=== PATIENT | female | born 1940 | race Caucasian/White ===

== ENCOUNTER 2022-11-05 20:46 | Emergency (ER) | payer MEDICARE, SELFPAY ==
--- NOTE | ~2022-11-05 | CT_ITS ---
EXAMINATION: CT HEAD WITHOUT CONTRAST CLINICAL INFORMATION: Altered mental status. COMPARISON: None available. TECHNIQUE: Contiguous axial imaging was performed from the skull base to vertex without intravenous administration of contrast. This CT examination was performed using dose optimization techniques as appropriate, variously including the following: *Automated exposure control. *Adjustment of mA and/or kV according to patient size (this includes techniques or standardized protocols for targeted exams where dose is matched to indication/reason for exam; i.e. extremities or head). *Use of iterative reconstruction technique. DLP: 581 mGy-cm FINDINGS: Changes of high left parietal craniotomy with overlying cutaneous gustabo. Small extradural hyperattenuating collection subjacent to the craniotomy flap, measuring up to 0.4 cm in depth. This is superimposed on a moderate left hemispheric subdural collection with mixed attenuation, measuring up to 1.2 cm in depth. No additional acute intracranial hemorrhagic products. There is no evidence of acute edematous territorial infarction. [place]-white matter differentiation is preserved. Scattered and partially confluent hypoattenuation in the periventricular and deep white matter are consistent with moderate microangiopathy. Proportional prominence of the ventricles and sulcal spaces without evidence of obstructive hydrocephalus. Mild effacement of the left cerebral sulci. There is mild 0.2 cm rightward midline shift. No transtentorial herniation. Calcific atherosclerotic disease of the intracranial internal carotid arteries. No hyperdense vessel sign. No additional acute osseous abnormalities. Mild mucosal thickening of the paranasal sinuses. The mastoid air cells and middle ear cavities are clear. Bilateral lens extractions. CT/CT head/brain wo IV con IMPRESSION: 1. Changes of high left parietal craniotomy. Small extradural hyperattenuating collection subjacent to the craniotomy flap. Moderate left hemispheric subdural collection with mixed attenuation. Recommend correlation with reason for recent craniotomy. 2. No evidence of acute edematous territorial infarction. Moderate underlying microangiopathy and generalized cerebral volume loss.
[2022-11-05 20:54] VITALS: BP 127/58; PULSE 79; RESP 21; TEMP 36.7; O2SAT 98; BMI 19.8
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
--- NOTE | 2022-11-05 21:10 | PC.NURSE ---
pt [place] [facility] [place] spent 11 days at [facility] for rehab last 2 days has been feeling unwell and intermittent headaches concern for new bleed expressed
--- NOTE | 2022-11-05 21:15 | PC.NURSE ---
pt's son and daughter at bedside
[2022-11-05] MEDS: 0.9 % Sodium Chloride 1,000 ML 999 ML IV (21:21)
--- NOTE | 2022-11-05 21:55 | ECG_ITS ---
Test Reason : DIZZINESS Blood Pressure : / mmHG Vent. Rate : 079 BPM Atrial Rate : 000 BPM P-R Int : 000 ms QRS Dur : 072 ms QT Int : 412 ms P-R-T Axes : 000 009 000 degrees QTc Int : 472 ms Poor data quality Atrial fibrillation Low voltage QRS Nonspecific ST and T wave abnormality Abnormal ECG No previous ECGs available Referred By: Kana Braxton Electronically Signed By:Emery Clay
[2022-11-05 22:06] LABS: Alanine Aminotransferase 71 U/L (0-31); Albumin Level 3.8 g/dL (3.5-5.0); Alkaline Phosphatase 132 U/L (39-117); Anion Gap 14 (12-20); Aspartate Amino Transferase 50 U/L (5-31); Blood Urea Nitrogen 17 mg/dL (9-16); Calcium 9.4 mg/dL (8.4-10.2); Carbon Dioxide 23 mmol/L (22-29); Chloride 103 mmol/L (96-108); Creatinine Clr Calc Pharmacy 60.7; Estimated Glomerular Filt Rate > 60; Glucose Random 98 mg/dL (60-115); Potassium 3.1 mmol/L (3.3-5.1); Sodium 137 mmol/L (135-145)
[2022-11-05 22:09] LABS: MANUAL DIFF FLAG NO
[2022-11-05 22:12] LABS: Basophils Absolute Auto 0.1 X10*3/uL (0.0-0.2); Basophils Percent Auto 0.4 % (0-2); Eosinophils Absolute Auto 0.1 X10*3/uL (0.0-0.4); Eosinophils Percent Auto 0.8 % (0-4); Hematocrit 38.3 % (37.0-47.0); Hemoglobin 13.3 g/dl (12.0-16.0); Imm Gran Abs Auto 0.04 X10*3/uL (0.00-0.03); Imm Gran Pct Auto 0.3 % (0.0-0.4); Lymphocytes Absolute Auto 3.4 X10*3/uL (1.2-4.9); Lymphocytes Percent Auto 23.9 % (20-40); Mean Corpuscular HGB Conc 34.7 g/dl (31.0-35.0); Mean Corpuscular Hemoglobin 33.2 pg (27.0-33.0); Mean Corpuscular Volume 95.5 fL (80.0-98.0); Mean Platelet Volume 9.4 fL (9.4-12.3); Monocytes Absolute Auto 1.3 X10*3/uL (0.1-1.2); Monocytes Percent Auto 9.2 % (2-11); Neutrophils Absolute Auto 9.2 x10*3/uL (2.0-8.3); Neutrophils Percent Auto 65.4 % (45-73); Platelet Count 292 X10*3/uL (160-400); Red Blood Count 4.01 X10*6/uL (4.20-5.50); Red Cell Distribution Width 11.9 % (11.0-16.0); White Blood Count 14.1 X10*3/uL (4.8-10.8)
[2022-11-05 22:16] LABS: INTERNATIONAL NORM RATIO 1.1 (0.9-1.1); Prothrombin Time 12.1 SEC (10.0-13.1)
--- NOTE | 2022-11-05 22:21 | PC.NURSE ---
megan assist pt to restroom urine sample obtained and sent to [facility] via tube system pt's gait steady, slow
[2022-11-05 22:27] VITALS: BP 116/65; PULSE 77; RESP 18; TEMP 36.6; O2SAT 95
[2022-11-05 23:37] LABS: Appearance Urine Clear; Color Urine Yellow; Glucose Urine UA Negative (Negative); Leukocyte Esterase Urine Moderate (2+) (Negative); Nitrite Urine Positive (Negative); PH 5.5 (5.0-9.0); UMIC TRIGGER UACC YES; Urine Blood Small (1+) (Negative); Urine Ketones Negative (Negative); Urine Protein Negative (Neg-Trace)
[2022-11-05 23:48] LABS: Bacteria Urine 4+ (None Seen); Hyaline Casts Urine 0-2 /LPF (0-2); RBC Urine 0-2 /HPF (0-2); Squamous Epithelial Cell Urine 0-2 /HPF (0-2); UACC Culture Trigger YES
[2022-11-06] MEDS: cefTRIAXone sodium 1 GM in 0.9 % Sodium Chloride 50 ML IV (00:17)
[2022-11-06] MEDS: Potassium Bicarbonate/Cit AC 25 MEQ TABLET.EFF 50 MEQ PO (00:17)
== END 2022-11-06 00:56 | disposition home or self-care (01) ==
PROVIDERS: Emergency Provider Internal Medicine
DX: N39.0 Urinary tract infection, site not specified (principal); B96.20 Unspecified Escherichia coli [E. coli] as the cause of diseases classified elsewhere; R53.1 Weakness; E87.6 Hypokalemia; Z98.890 Other specified postprocedural states
CPT/HCPCS: 36415; 70450; 80053; 81001; 85025; 85610; 87086; 87088; 87186; 93005; 96361; 96365; 99284; 99285; J0696

== ENCOUNTER 2022-12-01 16:53 | Emergency (ER) | payer MEDICARE, SELFPAY ==
--- NOTE | ~2022-12-01 | CT_ITS ---
EXAMINATION: CT HEAD WITHOUT CONTRAST CLINICAL INFORMATION: Recent subdural hemorrhage, now with headache. COMPARISON: CT head 11/05/2022. TECHNIQUE: Contiguous axial imaging was performed from the skull base to vertex without intravenous administration of contrast. This CT examination was performed using dose optimization techniques as appropriate, variously including the following: *Automated exposure control *Adjustment of mA and/or kV according to patient size (this includes techniques or standardized protocols for targeted exams where dose is matched to indication/reason for exam; i.e. extremities or head) *Use of iterative reconstruction technique DLP: 607 mGy-cm FINDINGS: Again noted postoperative changes from high left parietal craniotomy. Redemonstration of a mixed attenuating left hemicranial extradural collection, slightly decreased in size now measuring up to 1.6 cm in thickness, previously up to 2 cm. Decreased associated sulci effacement, no significant residual midline shift. There is no evidence of acute edematous territorial infarction. A few foci of hypoattenuation in the periventricular and deep white matter are consistent with mild microangiopathy. Cota-white matter differentiation is preserved. Proportional prominence of the ventricles and sulcal spaces. No evidence for obstructive hydrocephalus. No acute soft tissue or osseous abnormalities. The mastoid air cells and paranasal sinuses are clear. CT/CT head/brain wo IV con IMPRESSION: Decreased size of a mixed attenuating left hemicranial extradural collection.
[2022-12-01 16:54] VITALS: BP 118/92; PULSE 72; RESP 18; TEMP 36.4; O2SAT 99; BMI 18.3
--- NOTE | 2022-12-01 16:55 | ED_ITS ---
HPI - Headache General Chief Complaint: General Medical Stated Complaint: headache, dizziness Time Seen by Provider: 12/01/22 17:57 Source: patient and family (Patient's daughter and patient's niece) Mode of arrival: ambulatory Limitations: no limitations History of Present Illness HPI Narrative: 82-year-old female who presents emergency department for evaluation of lightheadedness, dizziness, headache times 3-4 days. The patient states that the headache is located in her temporal areas in the back of her head. She states that the headache is been intermittent and is 4 to 5/10 at its worse. She has also been having difficulty walking and feels off balance. She states she feels lightheaded and dizzy as well. The patient had a fall in July 2022. In in October of 2022 she began developing headaches, she was shaking, teary and feeling dizzy. She then developed weakness of her right arm. She was seen at [facility] on 10/17/2022 and was noted to have a subdural hematoma. She believes that she may have been treated with TXA for several days with no improvement of her symptoms and then she had neuro surgical intervention with drainage of the subdural hematoma. The patient was seen in this emergency department on 11/05/2022 for feeling dizzy specially when she was moving her head and standing, she was slightly off balance and also complained of a slight headache. According to the ED provider note the patient had a CT scan at [facility] on 10/23 which showed 3 mm of midline shift. She was found to have a urinary tract infection. She was treated with ceftriaxone 1 g IV and started on cefuroxime 250 mg twice a day for 7 days. Urine culture grew greater than 100,000 colony-forming units of E coli which was pansensitive. The patient did have a subsequent follow-up with her neurosurgeon with a repeat CT scan of her brain. She was told that there was no new intervention that was required but they would continue to follow her with repeat CT scans. Related Data Previous Rx's Medication Instructions Recorded cefuroxime axetil 250 mg tablet 250 mg PO BID 7 days #14 tabs 11/06/22 cefuroxime axetil 250 mg tablet 250 mg PO Q12H 7 days #14 tabs 12/01/22 Allergies Allergy/AdvReac Type Severity Reaction Status Date / Time No Known Allergies Allergy Verified 11/05/22 20:51 Review of Systems Review of Systems: Positive for urinary frequency and dark stools-patient reports being on iron Yes all other systems are reviewed and are negative [facility] Past Medical History [facility] Narrative: Past medical history: Hypertension, hyperlipidemia . Past surgical history: subdural hematoma status post surgical drainage 10/21/2022. Social history: She denies tobacco use. She drinks 1 glass of wine with dinner and 1 glass of scotch at night. The patient has been under increased stress since her has been ill is been a nursing facility. Apparently the is been difficult to manage at the facility secondary to agitated and this situation has been a significant social stressors on the patient. Social History Social History Advance Directives: No Advance Directives Information Provided: No Physical Exam Vital Signs: Vital Signs: Last Vital Signs Temp 98.3 F 12/01/22 19:42 Pulse 59 12/01/22 19:42 Resp 14 12/01/22 19:42 BP 143/55 H 12/01/22 19:42 Pulse Ox 97 12/01/22 19:42 O2 Del Method Room Air 12/01/22 19:42 BMI result Body Mass Index 18.3 Const: General: cooperative and no acute distress Orientation/consciousness: oriented to person and oriented to place [place] itations: no limitations HEENT: Head: Yes normal to inspection, Yes normocephalic and Yes atraumatic Ears: external ears normal General nose exam: Normal external nose present Face and sinus: Yes normal facial exam Mouth: Normal oral and palatal mucosa present Throat: Yes posterior oropharynx normal Eyes: General: appearance normal, both eyes and all related structures Pupils: Equal, round and reactive pupils present Neck: Neck: Yes normal visual inspection, Yes no lymphadenopathy, Yes trachea midline and Yes supple Chest: Chest palpation & inspection: normal inspection of the chest and normal palpation of entire chest wall Resp: Effort & Inspection: normal respiratory effort and able to speak in complete sentences Auscultation: clear to auscultation bilaterally Cardio: Rate: regular rate Rhythm: regular rhythm Heart sounds: S1 normal heart sound present, S2 normal heart sound present and no murmurs GI: Inspection: Yes normal to inspection Palpation (GI): Soft to palpation, nontender and no guarding Auscultation: normal bowel sounds : General: Yes no CVA tenderness Back/Spine/Pelvis: Back: no CVA tenderness Skin: General skin exam: no rashes or lesions noted Neuro: General: oriented to person and oriented to place Cranial nerves: Yes CN's II-XII intact bilaterally and Yes Equal, round and reactive pupils present Cognition (Neuro): normal cognition Motor exam (neuro): 5/5 motor strength present throughout Extrem: General: Yes normal to inspection Psych: Appearance: grossly normal Speech and movement: Normal speech and movement present Affect: normal affect Attitude: cooperative Course Course Course Narrative: This is a rapid medical exam. Deferred additional HpI, ROS PE to primary provider. 82yo female with history of HTN, SDH status post evacuation on 10/21?here with weakness, dizziness, headache today not relieved with tylenol. Will check labs, CT head. VSS Medical Decision Making Medical Decision Making MDM Narrative: 82-year-old female who had a fall in July 2022 and was diagnosed with subdur al hematoma October 2022 with surgical drainage on 10/21/2022 who presents emergency department for evaluation headache times 3-4 days, lightheadedness, dizziness, difficulty walking. Patient has had [address] scan since the initial surgery-1 here at this facility and 1 done by her neurosurgeon at [facility]. Patient's review of systems was positive for dark stools and urinary frequency. The following tests were ordered on the patient: CBC, CMP, liver panel, PT/INR, PTT, troponin, blood alcohol level, urinalysis, EKG, CT scan of the brain without IV contrast. 2022: My interpretation patient's laboratory evaluation is as follows: Anemia with an H&H 12.836-this is chronic. Elevated alk-phos 125. Elevated bilirubin 1.2. High sensitive troponin I below detectable limits. PT INR and PTT were normal. Urinalysis revealed 2+ leukocyte esterase. Microscopic revealed 6-10 RBCs, 6-10 WBCs, 1+ bacteria. Ethanol level below detectable limits. CT scan of the brain without IV contrast revealed mixed attenuating left hemicranial exit dural collection, slightly decreased in size compared to 11/05/2022-1.6 cm now and was 2 cm previously with decreased associated sulci ef facement and no significant midline shift. Given the recurrence of her symptoms that were similar to her symptoms when she required craniotomy, I will contact [facility] neuro surgery to see if they can review the CT scan and help determine if the patient needs transfer for further management or observation. The patient may have a urinary tract infection and I ordered ceftriaxone 1 g IV. 2043: I did discuss the patient's presentation with the provider covering for neuro surgery, Dominik Benjamin. He knew the patient's case well, he was able to review the CT scan from 11/21/2022 and states that it is unchanged. Also of note, the subdural l fluid collection has decreased from our previous CT scan which is reassuring as well. I did discuss this with the patient the patient's daughter. The patient will be discharged to home patient's UTI will be treated with cefuroxime 250 mg q.12 hours x7 days. Differential Diagnosis Differential diagnosis includes was not limited to recurrence of subdural bleed, stroke, electrolyte abnormality, anemia, urinary tract infection, alcohol use disorder Admission/Observation Consideration of admission/observation: Escalation of care including admission/observation considered Consult Healthcare Provider Management of the patient was discussed with: [employer] ([facility] Neurosurgery consult) Lab Data MDM Lab Attestation statement: I reviewed the patient's lab results. 12/01/22 17:44 12/01/22 17:44 Labs: Lab Results 12/01/22 12/01/22 12/01/22 Range/Units 17:44 17:44 18:19 WBC 5.1 (4.8-10.8) X10*3/uL RBC 3.85 L (4.20-5.50) X10*6/uL Hgb 12.8 (12.0-16.0) g/dl Hct 36.2 L (37.0-47.0) % MCV 94.0 (80.0-98.0) fL MCH 33.2 H (27.0-33.0) pg MCHC 35.4 H (31.0-35.0) g/dl RDW 12.4 (11.0-16.0) % Plt Count 299 (160-400) X10*3/uL MPV 9.8 (9.4-12.3) fL Immature Gran % (Auto) 0.2 (0.0-0.4) % Neut % (Auto) 36.1 L (45-73) % Lymph % (Auto) 48.1 H (20-40) % Mchenry % (Auto) 11.7 H (2-11) % Eos % (Auto) 2.7 (0-4) % Baso % (Auto) 1.2 (0-2) % Lymph # (Auto) 2.5 (1.2-4.9) X10*3/uL Mchenry # (Auto) 0.6 (0.1-1.2) X10*3/uL Eos # (Auto) 0.1 (0.0-0.4) X10*3/uL Baso # (Auto) 0.1 (0.0-0.2) X10*3/uL Abs Immat Gran (auto) 0.01 (0.00-0.03) X10*3/uL Absolute Neuts (auto) 1.9 L (2.0-8.3) x10*3/uL Absolute Nucleated RBC 0.000 (0.0-0.012) X10*3/uL Nucleated RBC % (auto) 0.0 (0.0-0.2) /100WBC PT (10.0-13.1) SEC INR (0.9-1.1) APTT (26.0-36.4) SEC Sodium 137 (135-145) mmol/L Potassium 3.8 D (3.3-5.1) mmol/L Chloride 100 (96-108) mmol/L Carbon Dioxide 25 (22-29) mmol/L Anion Gap 16 (12-20) BUN 15 (9-16) mg/dL Creatinine 0.68 (0.5-1.4) mg/dL Estim Creat Clear Calc 51.9 Estimated GFR > 60 Random Glucose 100 (60-115) mg/dL Calcium 10.2 D (8.4-10.2) mg/dL Total Bilirubin 1.2 H (0.0-1.0) mg/dL Direct Bilirubin 0.3 (0.0-0.5) mg/dL AST 27 (5-31) U/L ALT 24 (0-31) U/L Alkaline Phosphatase 125 H (39-117) U/L Troponin I High Sens (<3.5-17.0) ng/L Total Protein 7.1 (6.5-8.0) g/dL Albumin 4.4 (3.5-5.0) g/dL Urine Color Yellow Urine Appearance Clear Urine pH 8.0 (5.0-9.0) Ur Specific Deaver 1.010 (1.005-1.025) Urine Protein Negative (Neg-Trace) mg/dL Urine Glucose (UA) Negative (Negative) mg/dL Urine Ketones Negative (Negative) mg/dL Urine Blood Negative (Negative) Urine Nitrite Negative (Negative) Ur Leukocyte Esterase Moderate (2+) H (Negative) Urine RBC 6-10 H (0-2) /HPF Urine WBC 6-10 H (0-5) /HPF Ur Squamous Epith Cells 0-2 (0-2) /HPF Urine Bacteria 1+ (None Seen) Hyaline Casts 0-2 (0-2) /LPF Ethyl Alcohol < 10 mg/dL 12/01/22 12/01/22 Range/Units 19:38 19:38 WBC (4.8-10.8) X10*3/uL RBC (4.20-5.50) X10*6/uL Hgb (12.0-16.0) g/dl Hct (37.0-47.0) % MCV (80.0-98.0) fL MCH (27.0-33.0) pg MCHC (31.0-35.0) g/dl RDW (11.0-16.0) % Plt Count (160-400) X10*3/uL MPV (9.4-12.3) fL Immature Gran % (Auto) (0.0-0.4) % Neut % (Auto) (45-73) % Lymph % (Auto) (20-40) % Mchenry % (Auto) (2-11) % Eos % (Auto) (0-4) % Baso % (Auto) (0-2) % Lymph # (Auto) (1.2-4.9) X10*3/uL Mchenry # (Auto) (0.1-1.2) X10*3/uL Eos # (Auto) (0.0-0.4) X10*3/uL Baso # (Auto) (0.0-0.2) X10*3/uL Abs Immat Gran (auto) (0.00-0.03) X10*3/uL Absolute Neuts (auto) (2.0-8.3) x10*3/uL Absolute Nucleated RBC (0.0-0.012) X10*3/uL Nucleated RBC % (auto) (0.0-0.2) /100WBC PT 10.8 (10.0-13.1) SEC INR 0.9 (0.9-1.1) APTT 28.2 (26.0-36.4) SEC Sodium (135-145) mmol/L Potassium (3.3-5.1) mmol/L Chloride (96-108) mmol/L Carbon Dioxide (22-29) mmol/L Anion Gap (12-20) BUN (9-16) mg/dL Creatinine (0.5-1.4) mg/dL Estim Creat Clear Calc Estimated GFR Random Glucose (60-115) mg/dL Calcium (8.4-10.2) mg/dL Total Bilirubin (0.0-1.0) mg/dL Direct Bilirubin (0.0-0.5) mg/dL AST (5-31) U/L ALT (0-31) U/L Alkaline Phosphatase (39-117) U/L Troponin I High Sens < 2.7 (<3.5-17.0) ng/L Total Protein (6.5-8.0) g/dL Albumin (3.5-5.0) g/dL Urine Color Urine Appearance Urine pH (5.0-9.0) Ur Specific Deaver (1.005-1.025) Urine Protein (Neg-Trace) mg/dL Urine Glucose (UA) (Negative) mg/dL Urine Ketones (Negative) mg/dL Urine Blood (Negative) Urine Nitrite (Negative) Ur Leukocyte Esterase (Negative) Urine RBC (0-2) /HPF Urine WBC (0-5) /HPF Ur Squamous Epith Cells (0-2) /HPF Urine Bacteria (None Seen) Hyaline Casts (0-2) /LPF Ethyl Alcohol mg/dL Independent Interpretation I performed an independent interpretation of an: EKG Interpretation: My independent interpretation of the patient's 12 EKG done at 18:35 hours is as follows: Sinus rhythm with occasional PAC, rate 65, normal [place], QRS and QTC duration, inverted T-wave in lead 3 and V1, no ST segment elevation, no ST segment depression Radiology Impression Discussion of test interpretation with radiology: I have reviewed the radiologist's reading. Radiologist Impression: CT HEAD WITHOUT CONTRAST CLINICAL INFORMATION: Recent subdural hemorrhage, now with headache. COMPARISON: CT head 11/05/2022. TECHNIQUE: Contiguous axial imaging was performed from the skull base to vertex without intravenous administration of contrast. This CT examination was performed using dose optimization techniques as appropriate, variously including the following: *Automated exposure control *Adjustment of mA and/or kV according to patient size (this includes techniques or standardized protocols for targeted exams where dose is matched to indication/reason for exam; i.e. extremities or head) *Use of iterative reconstruction technique DLP: 607 mGy-cm FINDINGS: Again noted postoperative changes from high left parietal craniotomy. Redemonstration of a mixed attenuating left hemicranial extradural collection, slightly decreased in size now measuring up to 1.6 cm in thickness, previously up to 2 cm. Decreased associated sulci effacement, no significant residual midline shift. There is no evidence of acute edematous territorial infarction. A few foci of hypoattenuation in the periventricular and deep white matter are consistent with mild microangiopathy. Cota-white matter differentiation is preserved. Proportional prominence of the ventricles and sulcal spaces. No evidence for obstructive hydrocephalus. No acute soft tissue or osseous abnormalities. The mastoid air cells and paranasal sinuses are clear. CT/CT head/brain wo IV con IMPRESSION: Decreased size of a mixed attenuating left hemicranial extradural collection. Dictated By:Valerie Jenkins Independent Historian Clinical information obtained from an independent historian. History obtained from or confirmed by: Other (Daughter and niece) Chronic Conditions Patient?s care impacted by: Hypertension and Other (Hyperlipidemia) Discharge Plan Discharge Clinical Impression: Headache, Difficulty in walking, Urinary tract infection Patient Disposition: Home, Self-Care Additional Instructions: Your blood work was unremarkable. Your EKG was unremarkable. The CT scan of your brain without IV contrast did reveal reduced size of the subdural fluid collection from 2.0 cm in thickness to 1.6 cm in thickness compared to the CT scan done here on 11/05/2022. I did talk to the neuro surgical provider, Brando Benjamin at [facility]. He was aware of your case and he was able to compare your CT scan from 11/21/[address] scan any states that there is no significant difference. He felt that you did not need to go to [facility] today and that you should keep your follow-up appointment and contact them if you are feeling worse in any way. Your urine did reveal white blood cells, red blood cells and bacteria therefore I am treating you for urinary tract infection You received ceftriaxone 1 g IV. This antibiotic will last for 24 hours. I am prescribing cefuroxime 250 mg every 12 hours for 7 days. You can start this prescription tomorrow night. Take extra-strength Tylenol 500 mg pills, 2 pills every 6 hours as needed for pain. Follow-up with your doctor in 2 days. Please return to the emergency department if your symptoms get worse or if you develop any symptoms that are concerning to you. Prescriptions: New cefuroxime axetil 250 mg tablet 250 mg PO Q12H 7 Days Qty: 14 0RF No Action cefuroxime axetil 250 mg tablet 250 mg PO BID 7 Days Qty: 14 0RF
[2022-12-01 17:50] LABS: MANUAL DIFF FLAG NO
--- NOTE | 2022-12-01 18:06 | PC.NURSE ---
labs drawn by tech, awaiting ct scan results. pt in no apparent distress, vitals stable, aox3.
[2022-12-01 18:09] LABS: Anion Gap 16 (12-20); Blood Urea Nitrogen 15 mg/dL (9-16); Calcium 10.2 mg/dL (8.4-10.2); Carbon Dioxide 25 mmol/L (22-29); Chloride 100 mmol/L (96-108); Creatinine Clr Calc Pharmacy 51.9; Estimated Glomerular Filt Rate > 60; Glucose Random 100 mg/dL (60-115); Potassium 3.8 mmol/L (3.3-5.1); Sodium 137 mmol/L (135-145)
--- NOTE | 2022-12-01 18:15 | ECG_ITS ---
Test Reason : WEAKNESS/DIZZINESS Blood Pressure : / mmHG Vent. Rate : 065 BPM Atrial Rate : 065 BPM P-R Int : 178 ms QRS Dur : 082 ms QT Int : 432 ms P-R-T Axes : 073 000 015 degrees QTc Int : 449 ms Sinus rhythm with Premature atrial complexes Nonspecific ST and T wave abnormality Abnormal ECG When compared with ECG of 05-NOV-2022 21:46, Sinus rhythm has replaced Atrial fibrillation Nonspecific T wave abnormality no longer evident in Lateral leads Referred By: Raheem Villafuerte Electronically Signed By:FRED BOSS
[2022-12-01 18:16] LABS: Basophils Absolute Auto 0.1 X10*3/uL (0.0-0.2); Basophils Percent Auto 1.2 % (0-2); Eosinophils Absolute Auto 0.1 X10*3/uL (0.0-0.4); Eosinophils Percent Auto 2.7 % (0-4); Hematocrit 36.2 % (37.0-47.0); Hemoglobin 12.8 g/dl (12.0-16.0); Imm Gran Abs Auto 0.01 X10*3/uL (0.00-0.03); Imm Gran Pct Auto 0.2 % (0.0-0.4); Lymphocytes Absolute Auto 2.5 X10*3/uL (1.2-4.9); Lymphocytes Percent Auto 48.1 % (20-40); Mean Corpuscular HGB Conc 35.4 g/dl (31.0-35.0); Mean Corpuscular Hemoglobin 33.2 pg (27.0-33.0); Mean Platelet Volume 9.8 fL (9.4-12.3); Monocytes Absolute Auto 0.6 X10*3/uL (0.1-1.2); Monocytes Percent Auto 11.7 % (2-11); Neutrophils Absolute Auto 1.9 x10*3/uL (2.0-8.3); Neutrophils Percent Auto 36.1 % (45-73); Platelet Count 299 X10*3/uL (160-400); Red Blood Count 3.85 X10*6/uL (4.20-5.50); Red Cell Distribution Width 12.4 % (11.0-16.0); White Blood Count 5.1 X10*3/uL (4.8-10.8)
--- NOTE | 2022-12-01 18:17 | PC.NURSE ---
urine sample obtained. Per MD, hold on IV access due to veins blowing very easily, lab work is easier to obtain. Additional ordered labs will be drawn shortly
[2022-12-01 18:25] LABS: Appearance Urine Clear; Color Urine Yellow; Glucose Urine UA Negative (Negative); Leukocyte Esterase Urine Moderate (2+) (Negative); Nitrite Urine Negative (Negative); UMIC TRIGGER UACC YES; Urine Blood Negative (Negative); Urine Ketones Negative (Negative); Urine Protein Negative (Neg-Trace)
[2022-12-01 18:56] LABS: Alanine Aminotransferase 24 U/L (0-31); Albumin Level 4.4 g/dL (3.5-5.0); Alkaline Phosphatase 125 U/L (39-117); Aspartate Amino Transferase 27 U/L (5-31); Bilirubin Direct 0.3 mg/dL (0.0-0.5); Bilirubin Total 1.2 mg/dL (0.0-1.0); Ethanol < 10 mg/dL; Total Protein 7.1 g/dL (6.5-8.0)
[2022-12-01 19:01] LABS: Bacteria Urine 1+ (None Seen); Hyaline Casts Urine 0-2 /LPF (0-2); Squamous Epithelial Cell Urine 0-2 /HPF (0-2); UACC Culture Trigger YES
[2022-12-01 19:42] VITALS: BP 143/55; PULSE 59; RESP 14; TEMP 36.8; O2SAT 97
[2022-12-01 19:55] LABS: INTERNATIONAL NORM RATIO 0.9 (0.9-1.1); Prothrombin Time 10.8 SEC (10.0-13.1)
[2022-12-01 19:58] LABS: Partial Thromboplastin Time 28.2 SEC (26.0-36.4)
[2022-12-01 20:10] LABS: Troponin-I High Sensitivity < 2.7 ng/L (<3.5-17.0)
--- NOTE | 2022-12-01 20:46 | PC.NURSE ---
per MD no BCs needed before hanging rocephin
[2022-12-01] MEDS: cefTRIAXone sodium 1 GM in 0.9 % Sodium Chloride 50 ML IV (20:48)
== END 2022-12-01 21:19 | disposition home or self-care (01) ==
PROVIDERS: Nurse Practitioner Family; Emergency Provider Emergency Medicine Emergency Medical Services
DX: N39.0 Urinary tract infection, site not specified (principal); R51.9 Headache, unspecified; R26.2 Difficulty in walking, not elsewhere classified; R42 Dizziness and giddiness; R94.31 Abnormal electrocardiogram [ECG] [EKG]; Z79.899 Other long term (current) drug therapy
CPT/HCPCS: 36415; 70450; 80048; 80076; 80307; 81001; 84484; 85025; 85610; 85730; 87086; 93005; 96374; 99284; J0696

== ENCOUNTER 2023-03-06 14:15 | Emergency (ER) | payer MEDICARE, SELFPAY ==
[2023-03-06] VITALS (11 sets, daily range): BP systolic 100–149; BP diastolic 42–73; PULSE 50–63; RESP 16–18; TEMP 36.7; O2SAT 100; BMI 19.3
--- NOTE | ~2023-03-06 | CT_ITS ---
CT head for stroke CLINICAL INFORMATION: Reason for Exam nathan landrum COMPARISON: Prior CT 12/01/2022 TECHNIQUE: Department standard protocol. This CT examination was performed using dose optimization techniques as appropriate, variously including the following: *Automated exposure control *Adjustment of mA and/or kV according to patient size (this includes techniques or standardized protocols for targeted exams where dose is matched to indication/reason for exam; i.e. extremities or head) *Use of iterative reconstruction technique DLP: 612 mGy-cm FINDINGS: CEREBRAL HEMISPHERES: There is no evidence of intra-axial or extra-axial mass, hemorrhage or acute infarct. 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 There is an old lacunar infarct in the right frontal lobe just lateral to the anterior horn of the right lateral ventricle unchanged. SUBDURAL SPACE: Small subdural fluid/scar soft tissue thickening left parietal lobe adjacent to craniotomy site slightly less prominent than prior exam however not completely resolved, no evidence of active bleeding cannot entirely rule out the possibility of infection of the subdural fluid in the right clinical setting.. BASAL GANGLIA AND PINEAL GLAND: Unremarkable VENTRICLES: Symmetric and normal in size. CEREBELLUM AND BRAINSTEM: No space-occupying mass, hemorrhage or acute infarct. CEREBELLOPONTINE ANGLES: No lesion found. ORBITS: No intraorbital mass. VESSELS: Unremarkable SKULL BASE: Unremarkable INCLUDED SINUSES AT SKULL BASE: Clear SKULL AND SKIN: No fracture or bone lesion found. 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 - Small subdural fluid/scar soft tissue thickening left parietal lobe and left parieto-occipital region starting adjacent to craniotomy site . No CT evidence of active acute bleed. If there is a clinical suspicion for possible infection, may consider correlation with contrast enhanced MRI rule out infection of this fluid. This critical result was discussed with Laurita Mora MD by telephone at 03/06/2023 3:00 PM and it was ascertained that the content and urgency of the report was understood at the time of direct communication.
--- NOTE | 2023-03-06 14:16 | ECG_ITS ---
Test Reason : dizziness Blood Pressure : / mmHG Vent. Rate : 066 BPM Atrial Rate : 066 BPM P-R Int : 172 ms QRS Dur : 088 ms QT Int : 462 ms P-R-T Axes : 074 -02 020 degrees QTc Int : 484 ms Poor data quality, interpretation may be adversely affected Sinus rhythm with Premature atrial complexes Nonspecific ST abnormality Abnormal ECG When compared with ECG of 01-DEC-2022 18:35, ST now depressed in Lateral leads Referred By: Liz Quijano Electronically Signed By:WELLINGTON VAZQUEZ
--- NOTE | 2023-03-06 14:22 | ED_ITS ---
HPI - General Adult General Chief complaint: Stroke Stated complaint: lightheaded Time Seen by Provider: 03/06/23 14:28 Source: patient and family (Daughter) Mode of arrival: ambulatory History of Present Illness HPI narrative: 82-year-old female is brought in by her family member from home where she states that she began experiencing occipital headache with lightheadedness but denies any associated blurry vision/double vision/speech changes and states that she was walking at the time and is otherwise been feeling well. Patient denies any recent shortness of breath, cough but continues to feel lightheaded even while lying in the stretcher. She has a significant past medical history of subarachnoid and is currently on aspirin. Last known well 1130. Related Data Previous Rx's Medication Instructions Recorded cefuroxime axetil 250 mg tablet 250 mg PO BID 7 days #14 tabs 11/06/22 cefuroxime axetil 250 mg tablet 250 mg PO Q12H 7 days #14 tabs 12/01/22 Allergies Allergy/AdvReac Type Severity Reaction Status Date / Time No Known Allergies Allergy Verified 11/05/22 20:51 Review of Systems Review of Systems: Pertinent positives and negatives as stated in HPI [facility] Past Medical History Source: nursing notes reviewed Social History Social History Alcohol intake: current Alcohol intake frequency: 0-2 drinks per day Alcohol type: wine and hard liquor Smoked in Last 30 Days: No Use of substances other than those prescribed or required for medical reasons: No Advance Directives: Yes Advance Directives Information Provided: No Advance Directives on File: No Physical Exam ED Vital Signs: Vital Signs - 24 hr 03/06/23 15:51 03/06/23 15:21 03/06/23 15:52 Temperature 98.0 F Pulse Rate 56 55 60 Respiratory Rate 18 Blood Pressure 149/60 H 149/60 H 128/70 Pulse Oximetry 100 Oxygen Delivery Method Room Air 03/06/23 15:53 03/06/23 16:14 03/06/23 18:17 Temperature Pulse Rate 54 53 50 Respiratory Rate 16 Blood Pressure 100/67 132/73 142/42 H Pulse Oximetry 100 Oxygen Delivery Method Room Air 03/06/23 18:18 03/06/23 18:18 03/06/23 18:19 Temperature Pulse Rate 59 63 50 Respiratory Rate Blood Pressure 147/66 H 140/57 H 142/42 H Pulse Oximetry Oxygen Delivery Method 03/06/23 18:20 03/06/23 18:21 03/06/23 18:22 Temperature 98.1 F Pulse Rate 59 63 58 Respiratory Rate 18 Blood Pressure 147/66 H 140/57 H 147/66 H Pulse Oximetry Oxygen Delivery Method BMI result Body Mass Index 19.3 VITAL SIGNS: Reviewed. GENERAL: Well developed, well nourished, in no acute distress. HEAD: Normocephalic/atraumatic EYES: PERRLA, EOMI EARS: Ext canals without abnormality NOSE: Nares patent bilateral OROPHARYNX: no oral lesions noted, posterior pharynx clear NECK: Supple, no adenopathy LUNGS: Normal breath sounds. No adventitious sounds or accessory muscle use. CARDIOVASCULAR: Regular rate and rhythm without noted murmurs, no JVD or lower extremity edema. ABDOMEN: Soft, non-tender, non-distended with bowel sounds. MUSCULOSKELETAL: No tenderness, deformities, or effusions noted on gross inspection. EXTREMITIES: No cyanosis, clubbing or edema. SKIN: Inspection of the skin reveals no rashes NEUROLOGIC: Alert and oriented x 4. Strength and sensation to light touch were grossly intact x 4, no facial asymmetry, no pronator drift, cranial nerves 2-12 are grossly intact, finger past pointing is intact, heel to peter is intact, patient continues to be lightheaded despite position change. NIH Stroke Scale Internal: Initial- Upon Arrival Level of Consciousness: Alert Level of Consciousness Questions: Answers both questions correctly Level of Consciousness Commands: Performs both tasks correctly Best Gaze: Normal Visual: No visual loss Facial Palsy: Normal Motor Arm (Right): No drift Motor Arm (Left): No drift Motor Leg (Right): No drift Motor Leg (Left): No drift Limb Ataxia: Present in one limb Sensory: Normal Best Language: No aphasia Dysarthia: Normal Extinction and Inattention: No abnormality Score: 1 Course Course Course Narrative: This is an RME: Additional HPI, ROS, PE not included below will be deferred to primary provider. 82 year old female hx of subdural s/p craniotomy, presents w/ sudden onset headache in the occiptal region at around 11:30 am she states this was acompanied by sudden onset diseqalibirum without visual disturbances. Patient w/ hx of migraines however states this is much more and is not improving despite Excedrin which usually makes the pain better.She was seen at [facility] on 10/17/2022 and was noted to have a subdural hematoma.? She believes that she may have been treated with TXA for several days with no improvement of her symptoms and then she had neuro surgical intervention with drainage of the subdural hematoma. Although NIHSS-0 slight suspion for stroke due to patient history. Ordered CT head for stroke, no focal deficits no need for CTA. Attending aware of this patient Medications Administered Discontinued Medications Generic Name Dose Route Start Last Admin Trade Name Freq PRN Reason Stop Dose Admin Sodium Chloride 500 mls @ 999 mls/hr 03/06/23 16:00 03/06/23 16:13 Ns IV 03/06/23 16:30 999 mls/hr .Q31M KWAME Administration Medical Decision Making Medical Decision Making MDM Narrative: 82-year-old female with history and clinical presentation, DDX: Intracranial bleed, ischemic stroke, cardiac arrhythmia, infection, anemia, electrolyte abnormalities, BPPV. Patient is otherwise nonfocal. NIH-1. 1505: I received a call from [facility] who reports that there is no acute bleed or infarction, there is the chronic fluid collection that appears to be smaller in volume but did discuss the remote possibility of infection of the fluid which could be better characterized by MRI. However, there are no symptoms to further support this as patient has no changes in mental status, there are no focal changes, patient is afebrile and does not have any neck pain. 1550: I was informed that the orthostatics were positive and on review of these patient has had a significant drop and blood pressure without a corresponding increase in heart rate, EKG does not demonstrate any AV block. 1559: I have consult with Cardiology and recommends attempts to rehydration and re-evaluation. On re-evaluation of orthostatics after IV fluids, orthostatics were negative and patient states she is feeling much better. I did review the urinalysis which is negative for UTI or hematuria. On review of all investigations the hematologic indices are negative for leukocytosis or left shift, there is no anemia or thrombocytopenia. Coagulation studies are within normal range. Chemistry studies are negative for electrolyte abnormalities, there is no BASIA but there is a slight bump in the BUN which further supports the likelihood of a minor component of dehydration. Troponin is negative and EKG does not demonstrate any AV block to otherwise raise concern for conduction delays in relation to patient's bradycardia. All results and findings were discussed with patient at bedside, will ambulate and otherwise patient will be discharged home. My interpretation is that patient was suffering from volume depletion as after fluid hydration she is feeling better and orthostatics have normalized. Very low clinical suspicion for intracranial abnormalities as patient remains nonfocal, no troponin elevation and EKG appears to be at baseline. I informed the patient that I still feel strongly that she should follow-up with primary care doctor for re-evaluation further outpatient management. Differential Diagnosis Differential Diagnoses: The differential diagnosis associated with the presentation includes Please see the discussion above Admission/Observation Consideration of admission/observation: Escalation of care including admission/observation considered Please see the discussion above Consult Healthcare Provider Management of the patient was discussed with: Improvement Coordinator Please see the discussion above Lab Data MDM Lab Attestation statement: I reviewed the patient's lab results. Please see the discussion above 03/06/23 15:04 03/06/23 15:04 Labs: Lab Results 03/06/23 03/06/23 03/06/23 Range/Units 14:57 15:04 15:04 WBC 7.0 (4.8-10.8) X10*3/uL RBC 3.88 L (4.20-5.50) X10*6/uL Hgb 13.1 (12.0-16.0) g/dl Hct 35.8 L (37.0-47.0) % MCV 92.3 (80.0-98.0) fL MCH 33.8 H (27.0-33.0) pg MCHC 36.6 H (31.0-35.0) g/dl RDW 12.8 (11.0-16.0) % Plt Count 288 (160-400) X10*3/uL MPV 9.5 (9.4-12.3) fL Immature Gran % (Auto) 0.3 (0.0-0.4) % Neut % (Auto) 49.1 (45-73) % Lymph % (Auto) 37.5 (20-40) % [place] % (Auto) 11.4 H (2-11) % Eos % (Auto) 1.0 (0-4) % Baso % (Auto) 0.7 (0-2) % Lymph # (Auto) 2.6 (1.2-4.9) X10*3/uL [place] # (Auto) 0.8 (0.1-1.2) X10*3/uL Eos # (Auto) 0.1 (0.0-0.4) X10*3/uL Baso # (Auto) 0.1 (0.0-0.2) X10*3/uL Abs Immat Gran (auto) 0.02 (0.00-0.03) X10*3/uL Absolute Neuts (auto) 3.5 (2.0-8.3) x10*3/uL Absolute Nucleated RBC 0.000 (0.0-0.012) X10*3/uL Nucleated RBC % (auto) 0.0 (0.0-0.2) /100WBC PT 11.2 (11.1-13.3) SEC Whole Blood PT (11.1-13.5) sec INR 0.9 (0.9-1.1) Whole Blood INR (0.9-1.1) APTT 28.4 (26.0-36.4) SEC Sodium (135-145) mmol/L Potassium (3.3-5.1) mmol/L Chloride (96-108) mmol/L Carbon Dioxide (22-29) mmol/L Anion Gap (12-20) BUN (9-16) mg/dL Creatinine (0.5-1.4) mg/dL Estim Creat Clear Calc Estimated GFR POC Glucose 84 (60-115) mg/dL Random Glucose (60-115) mg/dL Calcium (8.4-10.2) mg/dL Total Creatine Kinase (26-140) U/L Troponin I High Sens (<3.5-17.0) ng/L Urine Color Urine Appearance Urine pH (5.0-9.0) Ur Specific [place] (1.005-1.025) Urine Protein (Neg-Trace) mg/dL Urine Glucose (UA) (Negative) mg/dL Urine Ketones (Negative) mg/dL Urine Blood (Negative) Urine Nitrite (Negative) Ur Leukocyte Esterase (Negative) Urine RBC (0-2) /HPF Urine WBC (0-5) /HPF Ur Squamous Epith Cells (0-2) /HPF Urine Bacteria (None Seen) Hyaline Casts (0-2) /LPF 03/06/23 03/06/23 03/06/23 Range/Units 15:04 15:04 15:05 WBC (4.8-10.8) X10*3/uL RBC (4.20-5.50) X10*6/uL Hgb (12.0-16.0) g/dl Hct (37.0-47.0) % MCV (80.0-98.0) fL MCH (27.0-33.0) pg MCHC (31.0-35.0) g/dl RDW (11.0-16.0) % Plt Count (160-400) X10*3/uL MPV (9.4-12.3) fL Immature Gran % (Auto) (0.0-0.4) % Neut % (Auto) (45-73) % Lymph % (Auto) (20-40) % [place] % (Auto) (2-11) % Eos % (Auto) (0-4) % Baso % (Auto) (0-2) % Lymph # (Auto) (1.2-4.9) X10*3/uL [place] # (Auto) (0.1-1.2) X10*3/uL Eos # (Auto) (0.0-0.4) X10*3/uL Baso # (Auto) (0.0-0.2) X10*3/uL Abs Immat Gran (auto) (0.00-0.03) X10*3/uL Absolute Neuts (auto) (2.0-8.3) x10*3/uL Absolute Nucleated RBC (0.0-0.012) X10*3/uL Nucleated RBC % (auto) (0.0-0.2) /100WBC PT (11.1-13.3) SEC Whole Blood PT 11.7 (11.1-13.5) sec INR (0.9-1.1) Whole Blood INR 1.0 (0.9-1.1) APTT (26.0-36.4) SEC Sodium 135 (135-145) mmol/L Potassium 3.3 (3.3-5.1) mmol/L Chloride 100 (96-108) mmol/L Carbon Dioxide 23 (22-29) mmol/L Anion Gap 15 (12-20) BUN 17 H (9-16) mg/dL Creatinine 0.66 (0.5-1.4) mg/dL Estim Creat Clear Calc TNP Estimated GFR > 60 POC Glucose (60-115) mg/dL Random Glucose 96 (60-115) mg/dL Calcium 10.5 H (8.4-10.2) mg/dL Total Creatine Kinase 106 (26-140) U/L Troponin I High Sens < 2.7 (<3.5-17.0) ng/L Urine Color Urine Appearance Urine pH (5.0-9.0) Ur Specific [place] (1.005-1.025) Urine Protein (Neg-Trace) mg/dL Urine Glucose (UA) (Negative) mg/dL Urine Ketones (Negative) mg/dL Urine Blood (Negative) Urine Nitrite (Negative) Ur Leukocyte Esterase (Negative) Urine RBC (0-2) /HPF Urine WBC (0-5) /HPF Ur Squamous Epith Cells (0-2) /HPF Urine Bacteria (None Seen) Hyaline Casts (0-2) /LPF 03/06/23 Range/Units 17:13 WBC (4.8-10.8) X10*3/uL RBC (4.20-5.50) X10*6/uL Hgb (12.0-16.0) g/dl Hct (37.0-47.0) % MCV (80.0-98.0) fL MCH (27.0-33.0) pg MCHC (31.0-35.0) g/dl RDW (11.0-16.0) % Plt Count (160-400) X10*3/uL MPV (9.4-12.3) fL Immature Gran % (Auto) (0.0-0.4) % Neut % (Auto) (45-73) % Lymph % (Auto) (20-40) % [place] % (Auto) (2-11) % Eos % (Auto) (0-4) % Baso % (Auto) (0-2) % Lymph # (Auto) (1.2-4.9) X10*3/uL [place] # (Auto) (0.1-1.2) X10*3/uL Eos # (Auto) (0.0-0.4) X10*3/uL Baso # (Auto) (0.0-0.2) X10*3/uL Abs Immat Gran (auto) (0.00-0.03) X10*3/uL Absolute Neuts (auto) (2.0-8.3) x10*3/uL Absolute Nucleated RBC (0.0-0.012) X10*3/uL Nucleated RBC % (auto) (0.0-0.2) /100WBC PT (11.1-13.3) SEC Whole Blood PT (11.1-13.5) sec INR (0.9-1.1) Whole Blood INR (0.9-1.1) APTT (26.0-36.4) SEC Sodium (135-145) mmol/L Potassium (3.3-5.1) mmol/L Chloride (96-108) mmol/L Carbon Dioxide (22-29) mmol/L Anion Gap (12-20) BUN (9-16) mg/dL Creatinine (0.5-1.4) mg/dL Estim Creat Clear Calc Estimated GFR POC Glucose (60-115) mg/dL Random Glucose (60-115) mg/dL Calcium (8.4-10.2) mg/dL Total Creatine Kinase (26-140) U/L Troponin I High Sens (<3.5-17.0) ng/L Urine Color Yellow Urine Appearance Clear Urine pH 7.0 (5.0-9.0) Ur Specific [place] 1.010 (1.005-1.025) Urine Protein Negative (Neg-Trace) mg/dL Urine Glucose (UA) Negative (Negative) mg/dL Urine Ketones Negative (Negative) mg/dL Urine Blood Negative (Negative) Urine Nitrite Negative (Negative) Ur Leukocyte Esterase Trace H (Negative) Urine RBC 0-2 (0-2) /HPF Urine WBC 0-5 (0-5) /HPF Ur Squamous Epith Cells 0-2 (0-2) /HPF Urine Bacteria None Seen (None Seen) Hyaline Casts 0-2 (0-2) /LPF Independent Interpretation I performed an independent interpretation of an: EKG Interpretation: Sinus rhythm, HR-66, no STEMI, MO/QRS/QTC is within normal limits. Comparison 12/01/22 1605: Sinus bradycardia, HR -58, no STEMI, MO/QRS/QTC is within normal limits Radiology Impression Radiologist Impression: Please see the discussion above External Record Review External record reviewed: Outpatient record, Prior outpatient labs and Prior outpatient radiology Critical Care Time Critical Care Time Critical Care Time: Yes Total Critical Care Time: 30 Attestation: I personally attest to this time spent taking care of the patient. Discharge Plan Discharge Clinical Impression: Lightheadedness, Dehydration Patient Disposition: Home, Self-Care Instructions: Dehydration (ED), Lightheadedness (ED) Additional Instructions: 1. Resume all home medications as prescribed. 2. It is very important that you continue to drink plenty of water and remain well hydrated. 3. Follow-up with your primary care doctor tomorrow morning to set up an appointment for re-evaluation and further outpatient management. Return to the ER for any worsening symptoms. Prescriptions: No Action cefuroxime axetil 250 mg tablet 250 mg PO Q12H 7 Days Qty: 14 0RF cefuroxime axetil 250 mg tablet 250 mg PO BID 7 Days Qty: 14 0RF Referrals: Quentin Copeland [Other]
[2023-03-06 15:01] LABS: Glucose, Whole Blood 84 mg/dL (60-115)
[2023-03-06 15:08] LABS: MANUAL DIFF FLAG NO
[2023-03-06 15:09] LABS: Basophils Absolute Auto 0.1 X10*3/uL (0.0-0.2); Basophils Percent Auto 0.7 % (0-2); Eosinophils Absolute Auto 0.1 X10*3/uL (0.0-0.4); Hematocrit 35.8 % (37.0-47.0); Hemoglobin 13.1 g/dl (12.0-16.0); Imm Gran Abs Auto 0.02 X10*3/uL (0.00-0.03); Imm Gran Pct Auto 0.3 % (0.0-0.4); Lymphocytes Absolute Auto 2.6 X10*3/uL (1.2-4.9); Lymphocytes Percent Auto 37.5 % (20-40); Mean Corpuscular HGB Conc 36.6 g/dl (31.0-35.0); Mean Corpuscular Hemoglobin 33.8 pg (27.0-33.0); Mean Corpuscular Volume 92.3 fL (80.0-98.0); Mean Platelet Volume 9.5 fL (9.4-12.3); Monocytes Absolute Auto 0.8 X10*3/uL (0.1-1.2); Monocytes Percent Auto 11.4 % (2-11); Neutrophils Absolute Auto 3.5 x10*3/uL (2.0-8.3); Neutrophils Percent Auto 49.1 % (45-73); Platelet Count 288 X10*3/uL (160-400); Red Blood Count 3.88 X10*6/uL (4.20-5.50); Red Cell Distribution Width 12.8 % (11.0-16.0)
[2023-03-06 15:19] LABS: INTERNATIONAL NORM RATIO 0.9 (0.9-1.1); Prothrombin Time 11.2 SEC (11.1-13.3)
[2023-03-06 15:22] LABS: Anion Gap 15 (12-20); Blood Urea Nitrogen 17 mg/dL (9-16); Calcium 10.5 mg/dL (8.4-10.2); Carbon Dioxide 23 mmol/L (22-29); Chloride 100 mmol/L (96-108); Estimated Glomerular Filt Rate > 60; Glucose Random 96 mg/dL (60-115); Partial Thromboplastin Time 28.4 SEC (26.0-36.4); Potassium 3.3 mmol/L (3.3-5.1); Sodium 135 mmol/L (135-145)
[2023-03-06 15:23] LABS: Stroke Lab Use COMPLETE
[2023-03-06 15:36] LABS: Troponin-I High Sensitivity < 2.7 ng/L (<3.5-17.0)
[2023-03-06 15:48] LABS: Prothrombin Time Whole Bld POC 11.7 sec (11.1-13.5)
--- NOTE | 2023-03-06 15:58 | ECG_ITS ---
Test Reason : dizzy Blood Pressure : / mmHG Vent. Rate : 058 BPM Atrial Rate : 058 BPM P-R Int : 190 ms QRS Dur : 088 ms QT Int : 474 ms P-R-T Axes : 075 -04 026 degrees QTc Int : 465 ms Sinus bradycardia with Premature atrial complexes Nonspecific ST abnormality Abnormal ECG When compared with ECG of 06-MAR-2023 14:42, Heart rate has decreased Referred By: Laurita Navarro Electronically Signed By:WELLINGTON VAZQUEZ
[2023-03-06] MEDS: 0.9 % Sodium Chloride 500 ML 999 ML IV (16:13)
[2023-03-06 17:21] LABS: Appearance Urine Clear; Color Urine Yellow; Glucose Urine UA Negative (Negative); Leukocyte Esterase Urine Trace (Negative); Nitrite Urine Negative (Negative); UMIC TRIGGER UACC YES; Urine Blood Negative (Negative); Urine Ketones Negative (Negative); Urine Protein Negative (Neg-Trace)
[2023-03-06 17:26] LABS: Bacteria Urine None Seen (None Seen); Hyaline Casts Urine 0-2 /LPF (0-2); RBC Urine 0-2 /HPF (0-2); Squamous Epithelial Cell Urine 0-2 /HPF (0-2); WBC Urine 0-5 /HPF (0-5)
== END 2023-03-06 19:34 | disposition home or self-care (01) ==
PROVIDERS: Physician Assistant; Emergency Provider Student in an Organized Health Care Education/Training Program; PCP Student in an Organized Health Care Education/Training Program
DX: R42 Dizziness and giddiness (principal); E86.0 Dehydration; R00.1 Bradycardia, unspecified; R29.701 NIHSS score 1; R51.9 Headache, unspecified; Z79.899 Other long term (current) drug therapy
CPT/HCPCS: 36415; 70450; 80048; 81001; 82550; 82947; 84484; 85025; 85610; 85730; 93005; 99284; 99285

== ENCOUNTER 2023-04-22 14:17 | Inpatient (IN) | payer MEDICARE, SELFPAY ==
--- NOTE | ~2023-04-22 | CT_ITS ---
EXAMINATION: CT ABDOMEN AND PELVIS WITH CONTRAST CLINICAL INFORMATION: Abdominal pain COMPARISON: None available. TECHNIQUE: Multidetector volumetric images were obtained from the superior aspect of the liver through the pubic symphysis following administration 85 mL of Omnipaque 350 intravenous contrast. Sagittal and coronal reformatted images were obtained on the technologist's workstation. Oral contrast: No This CT examination was performed using dose optimization techniques as appropriate, variously including the following: *Automated exposure control *Adjustment of mA and/or kV according to patient size (this includes techniques or standardized protocols for targeted exams where dose is matched to indication/reason for exam; i.e. extremities or head) *Use of iterative reconstruction technique DLP: 302 mGy-cm FINDINGS: LUNG BASES: The lung bases are clear. The heart size is normal. LIVER, GALLBLADDER, AND BILIARY TREE: The liver is normal in size, shape, and attenuation. No focal hepatic lesion or biliary ductal dilatation is present. The gallbladder is unremarkable with no evidence of radiopaque gallstones, gallbladder wall thickening, or obvious pericholecystic inflammatory changes. PANCREAS: Unremarkable. SPLEEN: Unremarkable. ADRENAL GLANDS: Unremarkable. KIDNEYS AND URETERS: The kidneys are normal in size, shape, and attenuation. No hydronephrosis, hydroureter, or calculi seen. No perinephric stranding. There is a 1.8 cm cyst midpole and a 7 mm cyst lower pole right kidney. No caliectasis or hydronephrosis seen. BLADDER: The bladder is mildly distended but no radiopaque calculi or wall thickening seen.. GASTROINTESTINAL TRACT: There is scattered stool, diverticuli and gas seen throughout the colon without significant distention. There are segments of mural thickening seen in the small bowel in midabdomen question peristalsis versus enteritis. Some fluid-filled nondilated small bowel loops are visualized as well in the upper pelvis. Appendix is normal caliber no free air or free fluid. ABDOMINAL WALL: A small umbilical hernia containing fat is noted. LYMPH NODES: Normal. VASCULAR: Mild atherosclerotic changes of abdominal aorta without aneurysmal dilatation. PELVIC VISCERA: The uterus is midline and appears unremarkable. No free fluid in cul-de-sac. OSSEOUS STRUCTURES: Linear disc changes with vacuum disc phenomena L2-L3 through L5-S1 disc levels. There is mild ventral and posterior spondylosis. Grade 1 anterolisthesis L3 over L4 is noted. CT/CT abdomen pelvis w IV con IMPRESSION: Diffuse colonic diverticulosis without diverticulitis. Small bowel segments of mural thickening in the midabdomen with air-fluid level seen in some of the small bowel loops in the mid upper pelvis and midabdomen. Most likely enteritis. Mural thickening and peristalsis is considered less likely. Fleischner guidelines were followed.
[2023-04-22 14:27] VITALS: BP 144/71; PULSE 70; RESP 17; TEMP 36.4; BMI 20.3
--- NOTE | 2023-04-22 14:31 | ED_ITS ---
HPI - Abdominal Pain General Chief Complaint: Abdominal Pain Stated Complaint: abd pain Time Seen by Provider: 04/22/23 14:56 Source: patient Mode of arrival: ambulatory Limitations: no limitations History of Present Illness HPI narrative: This is an 82-year-old female history of hyperlipidemia, hypertension presenting with complaints of severe upper abdominal pain, chills since this morning, patient reports initially she felt constipated took 2 laxatives and was able to successfully have a bowel movement. Since then has been having severe pain, constant in nature, reports she has never had pain like this before. Patient tells me she feels slightly nauseous however no vomiting, fevers, chills, chest pain, shortness of breath, headache, vision changes, dizziness or weakness. Patient's son reports that since July 2022 she has not been the same has had intermittent episodes of lightheadedness and dizziness, not dizzy at this time, reports status post fall in July patient was diagnosed with a head bleed, she is in a nursing facility at this time. Related Data Previous Rx's Medication Instructions Recorded cefuroxime axetil 250 mg tablet 250 mg PO BID 7 days #14 tabs 11/06/22 cefuroxime axetil 250 mg tablet 250 mg PO Q12H 7 days #14 tabs 12/01/22 Allergies Allergy/AdvReac Type Severity Reaction Status Date / Time No Known Allergies Allergy Verified 11/05/22 20:51 Review of Systems Review of Systems Constitutional : No Weight loss, No Fever, No Chills, No Fatigue, No Malaise ENT/Mouth : No sore throat, No Rhinorrhea Eyes: No Eye Pain, No Swelling, No Redness Cardiovascular : No Chest Pain, No SOB, No Dyspnea on Exertion, No Orthopnea, No Edema, No Palpitations Respiratory : No Cough, No Sputum, No Wheezing Gastrointestinal : + Nausea, No Vomiting, No Diarrhea, No Constipation, + abdominal Pain, No Hematochezia, No Melena Genitourinary : No Dysuria, No Urinary Frequency, No Hematuria, Musculoskeletal : No joint pain, No Myalgias, No Joint Swelling Skin : No Skin Lesions, No rash Neuro : No Weakness, No Numbness, No Dizziness, No Headache Psych : No Anxiety/Panic, No Depression All other systems reviewed and are negative Yes all other systems are reviewed and are negative [facility] Past Medical History Attestation statement: The following information was validated with the patient. Source: old records reviewed and nursing notes reviewed Social History Social History Alcohol intake: current Alcohol intake frequency: 0-2 drinks per day Alcohol type: wine and hard liquor Smoked in Last 30 Days: No Use of substances other than those prescribed or required for medical reasons: No Advance Directives: No Advance Directives Information Provided: No Physical Exam ED Vital Signs: Vital Signs - 24 hr 04/22/23 14:27 04/22/23 15:03 04/22/23 15:07 Temperature 97.5 F Pulse Rate 70 Respiratory Rate 17 Blood Pressure 144/71 H 135/59 L 145/79 H Oxygen Delivery Method Room Air BMI result Body Mass Index 20.3 Vital signs stable Bilateral blood pressures were obtained and they were similar. Unlikely dissection Appearance: Alert.? Oriented X3.? No acute distress.? Head: Normocephalic, atraumatic, no step-offs or deformities Eyes: Pupils equal, round and reactive to light.? ENT: Pharynx normal.? Neck: Normal inspection.? Neck supple.? CVS: Normal heart rate and rhythm.? Pulses normal.? Respiratory: No respiratory distress.? Breath sounds normal.? Abdomen: Soft and diffuse abdominal pain worse in the epigastric region with rebound tenderness, no guarding. Normoactive bowel sounds throughout. No abdominal bruits appreciated Skin: Skin warm and dry.? Normal skin color.? Normal skin turgor.? Extremities: No lower extremity edema.? No calf ttp. Global weakness. Back: No midline tenderness, no C-spine tenderness, full range of motion, no CVA tenderness bilaterally Neuro: Oriented X 3.? No motor deficit.? No sensory deficit. CN 2-12 intact Course Course Course Narrative: This is a rapid medical exam. deferred additioal HPi< ROS, PE to primary provider. 82yo female with history of HTN, HLD here with upper abdominal pain since this morning. No vomiting. able to move bowels this morning with 2 laxatives. No urinary symptoms, fevers, chills. Will obtain labs, EKG, UA, covid screen. VSS Reevaluation(s) Reevaluation #1: Patient's CBC within normal limits. Chemistry with a low potassium, 2.7 will give oral potassium at this time, patient also noted to be hyponatremic 133 likely secondary to poor p.o. intake/dehydration. Troponin negative.. Lactic acid elevated 2.4 likely secondary to metformin lactic acidosis. No other acute findings on chemistry. Unremarkable PT INR. COVID negative. CT abdomen pelvis with diffuse colonic diverticulosis without diverticulitis. Small bowel suggestive of mural thickening in the mid abdomen with air-fluid level seen in some of the small bowel loops in the mid upper pelvic and mid abdomen region. Most likely enteritis. Mural thickening and peristalsis is considered less likely. This is likely viral in origin no need for antibiotics. Patient will likely require hospital admission for correction of electrolytes, hydration and patient is also week. I do not feel comfortable sending her home patient does live by herself. Urine is still pending. Will reach out to the hospitalist. Time: 16:10 Reevaluation #2: Discussed this case with my attending who recommends hospital admission for hydration and monitoring of electrolytes. Medical Decision Making Medical Decision Making [facility] Narrative: 1459 82 year old female presents with severe epigastric/abdominal pain sudden in onset Physical exam diffuse abdominal pain worse in the epigastric region with rebound tenderness, no guarding. Normoactive bowel sounds throughout. No abdominal bruits appreciated. Patient very tender to palpation, will rule out an acute abdomen, other differentials include gas pain. Will rule out diverticulitis, pancreatitis, appendicitis and cholecystitis. Unlikely acute mesenteric ischemia. Also rule out kidney stones, urinary tract infection, dehydration, electrolyte abnormalities. Will rule out atypical presentation of ACS. Plan at this time labs, imaging, urine. Will give morphine for pain control and Zofran for nausea Due to significant abdominal tenderness on exam with rebound tenderness ordered CT abdomen pelvis will not wait for laboratory studies. Differential Diagnosis Differential Diagnoses: The differential diagnosis associated with the presentation includes Patient very tender to palpation, will rule out an acute abdomen, other differentials include gas pain. Will rule out diverticulitis, pancreatitis, appendicitis and cholecystitis. Unlikely acute mesenteric ischemia. Also rule out kidney stones, urinary tract infection, dehydration, electrolyte abnormalities. Will rule out atypical presentation of ACS. Admission/Observation Consideration of admission/observation: Escalation of care including admission/observation considered possible Lab Data MDM Lab Attestation statement: I reviewed the patient's lab results. 04/22/23 14:58 04/22/23 15:39 Labs: Lab Results 04/22/23 04/22/23 Range/Units 14:58 15:39 WBC 7.1 (4.8-10.8) X10*3/uL RBC 4.04 L (4.20-5.50) X10*6/uL Hgb 13.9 (12.0-16.0) g/dl Hct 38.1 (37.0-47.0) % MCV 94.3 (80.0-98.0) fL MCH 34.4 H (27.0-33.0) pg MCHC 36.5 H (31.0-35.0) g/dl RDW 12.2 (11.0-16.0) % Plt Count 333 (160-400) X10*3/uL MPV 9.4 (9.4-12.3) fL Immature Gran % (Auto) 0.1 (0.0-0.4) % Neut % (Auto) 52.4 (45-73) % Lymph % (Auto) 35.1 (20-40) % [place] % (Auto) 10.4 (2-11) % Eos % (Auto) 1.0 (0-4) % Baso % (Auto) 1.0 (0-2) % Lymph # (Auto) 2.5 (1.2-4.9) X10*3/uL [place] # (Auto) 0.7 (0.1-1.2) X10*3/uL Eos # (Auto) 0.1 (0.0-0.4) X10*3/uL Baso # (Auto) 0.1 (0.0-0.2) X10*3/uL Abs Immat Gran (auto) 0.01 (0.00-0.03) X10*3/uL Absolute Neuts (auto) 3.7 (2.0-8.3) x10*3/uL Absolute Nucleated RBC 0.000 (0.0-0.012) X10*3/uL Nucleated RBC % (auto) 0.0 (0.0-0.2) /100WBC PT 11.3 (11.1-13.3) SEC INR 0.9 (0.9-1.1) Sodium 135 133 L (135-145) mmol/L Potassium 2.7 L 2.7 L (3.3-5.1) mmol/L Chloride 97 98 (96-108) mmol/L Carbon Dioxide 21 L 20 L (22-29) mmol/L Anion Gap 20 18 (12-20) BUN 14 14 (9-16) mg/dL Creatinine 0.70 0.66 (0.5-1.4) mg/dL Estim Creat Clear Calc 54.3 57.6 Estimated GFR > 60 > 60 Random Glucose 92 85 (60-115) mg/dL Lactic Acid 2.4 H* (0.5-2.0) mmol/L Calcium 11.0 H 10.4 H (8.4-10.2) mg/dL Magnesium 2.4 (1.6-2.6) mg/dL Total Bilirubin 1.0 0.9 (0.0-1.0) mg/dL Direct Bilirubin 0.4 (0.0-0.5) mg/dL AST 32 H 29 (5-31) U/L ALT 29 27 (0-31) U/L Alkaline Phosphatase 101 94 (39-117) U/L Troponin I High Sens < 2.7 (<3.5-17.0) ng/L Total Protein 7.6 7.1 (6.5-8.0) g/dL Albumin 4.7 4.3 (3.5-5.0) g/dL Lipase 29 (8-78) U/L COVID-19 (MELANY) Negative (Negative) COVID-19 Clin Com See Note Independent Interpretation I performed an independent interpretation of an: CT Scan (CT/CT abdomen pelvis w IV con IMPRESSION: Diffuse colonic diverticulosis without diverticulitis. Small bowel segments of mural thickening in the midabdomen with air-fluid level seen in some of the small bowel loops in the mid upper pelvis and midabdomen. Most likely enteritis. Mural thickening and) Radiology Impression Discussion of test interpretation with radiology: I have reviewed the radiologist's reading. External Record Review External record reviewed: Inpatient record, Office record, Outpatient record, Prior outpatient labs, Prior outpatient radiology, Primary care record and Outside ED record Chronic Conditions Patient?s care impacted by: Other (ICH in jul 2022, HTN) Medications Administered Generic Name Dose Route Start Last Admin Trade Name Freq PRN Reason Stop Dose Admin Sodium Chloride 500 mls @ 500 mls/hr 04/22/23 15:30 04/22/23 15:45 Ns IV 04/22/23 16:29 500 mls/hr .Q1H KWAME Administration Discontinued Medications Generic Name Dose Route Start Last Admin Trade Name Frelee PRN Reason Stop Dose Admin Sodium Chloride 500 mls @ 500 mls/hr 04/22/23 15:15 04/22/23 15:43 Ns IV 04/22/23 16:14 500 mls/hr .Q1H KWAME Administration Iohexol 100 ml 04/22/23 15:19 04/22/23 15:19 Iohexol 350 Mg/Ml 100 Ml Infus..Btl IV 04/22/23 15:20 85 ml ONCE ONE Administration Morphine Sulfate 2 mg 04/22/23 14:36 04/22/23 15:00 Morphine Sulfate 2 Mg/Ml Cartridge IVPUSH 04/22/23 14:37 2 mg ONCE ONE Administration Protocol Ondansetron HCl 4 mg 04/22/23 14:36 04/22/23 15:00 Ondansetron Hcl 4 Mg/2 Ml Vial IVPUSH 04/22/23 14:37 4 mg ONCE ONE Administration Critical Care Time Critical Care Time Critical Care Time: No Discharge Plan Discharge Clinical Impression: Abdominal pain, Enteritis, Acute hypokalemia, Hyponatremia Patient Disposition: Admitted As Inpatient
--- NOTE | 2023-04-22 14:35 | ECG_ITS ---
Test Reason : ABD PAIN Blood Pressure : / mmHG Vent. Rate : 065 BPM Atrial Rate : 065 BPM P-R Int : 136 ms QRS Dur : 100 ms QT Int : 466 ms P-R-T Axes : 087 -09 013 degrees QTc Int : 484 ms Sinus rhythm with Premature atrial complexes Nonspecific ST abnormality Abnormal ECG When compared with ECG of 06-MAR-2023 16:05, No significant change was found Referred By: Kaylene Brown Electronically Signed By:DANNY LARA MD
[2023-04-22] MEDS: Morphine Sulfate 2 MG/ML CARTRIDGE IVPUSH (15:00)
[2023-04-22] MEDS: ondansetron HCL 4 MG/2 ML VIAL IVPUSH (15:00)
[2023-04-22 15:03] VITALS: BP 135/59
[2023-04-22 15:03] LABS: MANUAL DIFF FLAG NO
[2023-04-22 15:04] LABS: Basophils Absolute Auto 0.1 X10*3/uL (0.0-0.2); Eosinophils Absolute Auto 0.1 X10*3/uL (0.0-0.4); Hematocrit 38.1 % (37.0-47.0); Hemoglobin 13.9 g/dl (12.0-16.0); Imm Gran Abs Auto 0.01 X10*3/uL (0.00-0.03); Imm Gran Pct Auto 0.1 % (0.0-0.4); Lymphocytes Absolute Auto 2.5 X10*3/uL (1.2-4.9); Lymphocytes Percent Auto 35.1 % (20-40); Mean Corpuscular HGB Conc 36.5 g/dl (31.0-35.0); Mean Corpuscular Hemoglobin 34.4 pg (27.0-33.0); Mean Corpuscular Volume 94.3 fL (80.0-98.0); Mean Platelet Volume 9.4 fL (9.4-12.3); Monocytes Absolute Auto 0.7 X10*3/uL (0.1-1.2); Monocytes Percent Auto 10.4 % (2-11); Neutrophils Absolute Auto 3.7 x10*3/uL (2.0-8.3); Neutrophils Percent Auto 52.4 % (45-73); Platelet Count 333 X10*3/uL (160-400); Red Blood Count 4.04 X10*6/uL (4.20-5.50); Red Cell Distribution Width 12.2 % (11.0-16.0); White Blood Count 7.1 X10*3/uL (4.8-10.8)
[2023-04-22 15:07] VITALS: BP 145/79
[2023-04-22 15:10] LABS: INTERNATIONAL NORM RATIO 0.9 (0.9-1.1); Prothrombin Time 11.3 SEC (11.1-13.3)
--- NOTE | 2023-04-22 15:11 | PC.NURSE ---
a&ox3, vss and up to date. pt comes in today c/o sudden onset 8/10 epigastric/back pain. pt verbalizes no n/v/d at this time. pt states she had chills a few days ago but denies fever. 20g IV placed in left AC - labs drawn and sent to lab. abdomen tender upon palpation. provider bedside assessing pt. provider ordered STAT CT - pt currently being transferred to CT at this time. pt's son bedside for support.
[2023-04-22 15:17] LABS: Lactic Acid 2.4 mmol/L (0.5-2.0)
[2023-04-22 15:18] LABS: Alanine Aminotransferase 29 U/L (0-31); Albumin Level 4.7 g/dL (3.5-5.0); Alkaline Phosphatase 101 U/L (39-117); Aspartate Amino Transferase 32 U/L (5-31); Bilirubin Direct 0.4 mg/dL (0.0-0.5); Lipase 29 U/L (8-78); Magnesium 2.4 mg/dL (1.6-2.6); Total Protein 7.6 g/dL (6.5-8.0)
[2023-04-22] MEDS: iohexoL 350 MG/ML 100 ML INFUS..BTL IV (15:19)
[2023-04-22 15:21] LABS: COVID-19 Test Negative (Negative); IDNOW Serial# BCCEAD1C
--- NOTE | 2023-04-22 15:22 | PC.NURSE ---
pt returned from CT at this time. pt currently bedside obtaining second set of cultures. respirations even and unlabored. call yang placed within reach.
[2023-04-22 15:27] LABS: Troponin-I High Sensitivity < 2.7 ng/L (<3.5-17.0)
[2023-04-22] MEDS: 0.9 % Sodium Chloride 500 ML IV ×2 (15:43→15:45)
--- NOTE | 2023-04-22 15:47 | PC.NURSE ---
labs obtained and sent to lab. fluids administered per provider order. call yang placed within reach.
[2023-04-22 15:53] LABS: Anion Gap 20 (12-20)
[2023-04-22 15:56] LABS: Blood Urea Nitrogen 14 mg/dL (9-16); Carbon Dioxide 21 mmol/L (22-29); Chloride 97 mmol/L (96-108); Creatinine Clr Calc Pharmacy 54.3; Estimated Glomerular Filt Rate > 60; Glucose Random 92 mg/dL (60-115); Potassium 2.7 mmol/L (3.3-5.1); Sodium 135 mmol/L (135-145)
[2023-04-22 16:03] LABS: Alanine Aminotransferase 27 U/L (0-31); Albumin Level 4.3 g/dL (3.5-5.0); Alkaline Phosphatase 94 U/L (39-117); Anion Gap 18 (12-20); Aspartate Amino Transferase 29 U/L (5-31); Bilirubin Total 0.9 mg/dL (0.0-1.0); Blood Urea Nitrogen 14 mg/dL (9-16); Calcium 10.4 mg/dL (8.4-10.2); Carbon Dioxide 20 mmol/L (22-29); Chloride 98 mmol/L (96-108); Creatinine Clr Calc Pharmacy 57.6; Estimated Glomerular Filt Rate > 60; Glucose Random 85 mg/dL (60-115); Potassium 2.7 mmol/L (3.3-5.1); Sodium 133 mmol/L (135-145); Total Protein 7.1 g/dL (6.5-8.0)
[2023-04-22 16:19] VITALS: BP 142/92; PULSE 74; RESP 19; TEMP 36.7; O2SAT 98
--- NOTE | 2023-04-22 16:21 | PM.IMHP ---
History of Present Illness Date of Service: 04/22/23 Chief Complaint: enteritis, hypokalemia 82 year old female with HTN takes HCTZ, HLD who presents with abdominal pain, in the mid abdomen onset this morning of moderate intensity, not associated w/ n/v or diarrhea, she thought it was constipation and so took laxative but didn't improve and therefore came to the ED. Work up with CT show enteritis, potassium is low at 2.7. Morphine has worked and presently no pain Review of Systems Review of Systems: Gen: no fever Resp: no sob, no cough CV: no chest, no SALGUERO, no leg edema GI: No n/v, + abd pain Neuro: No confusion Yes all other systems are reviewed and are negative COUNTS INCLUDE 234 BEDS AT THE [facility] Medical History HLD (hyperlipidemia) HTN (hypertension) Social History Household Members: None Housing: House Alcohol intake: current Alcohol intake frequency: 0-2 drinks per day Alcohol type: wine and hard liquor Patient Tobacco Use Status: Never used Tobacco Smoked in Last 30 Days: No Use of substances other than those prescribed or required for medical reasons: No Currently Displaying Signs/Symptoms of Drug Intoxication Withdrawal: No Have you been hit, kicked, punched, or otherwise hurt by someone within the past year? If so, by whom?: No Do you feel safe in your current relationship?: Yes Is there a partner from a previous relationship who is making you feel unsafe now?: No Are you made to feel afraid or neglected: No Advance Directives: No Advance Directives Information Provided: No Do you have thoughts of harming others: None Do you have a plan to hurt others: No Plan Recently lost weight without trying: No Patient : No Meds Allergies Allergy/AdvReac Type Severity Reaction Status Date / Time No Known Allergies Allergy Verified 11/05/22 20:51 Active Medications: Current Medications Sodium Chloride (Ns) 500 mls @ 500 mls/hr IV .Q1H KWAME Stop: 04/22/23 16:29 Last Admin: 04/22/23 15:45 Dose: 500 mls/hr Home Medications Medication Instructions Recorded Confirmed Last Taken Type amlodipine 5 mg tablet 5 mg PO DAILY 04/22/23 04/22/23 Unknown History atorvastatin 20 mg tablet 20 mg PO DAILY 04/22/23 04/22/23 Unknown History ferrous sulfate 325 mg (65 mg 325 mg PO BID 04/22/23 04/22/23 Unknown History iron) tablet hydrochlorothiazide 25 mg tablet 25 mg PO DAILY 04/22/23 04/22/23 Unknown History magnesium oxide 400 mg (241.3 mg 400 mg PO DAILY 04/22/23 04/22/23 Unknown History magnesium) tablet multivitamin 1 tab PO DAILY 04/22/23 04/22/23 Unknown History Physical Exam Vital Signs and Narrative: Vital Signs: Last Vital Signs Temp 97.5 F 04/22/23 14:27 Pulse 70 04/22/23 14:27 Resp 17 04/22/23 14:27 BP 145/79 H 04/22/23 15:07 O2 Del Method Room Air 04/22/23 14:27 BMI result Body Mass Index 20.3 Const: Other: Constitutional: Alert, in no distress, Mental Status: Oriented to person, place and time. Eyes: Pupils are equal, round and reactive to light. Ear, Nose and Throat: Oropharynx clear, mucous membranes moist. Respiratory: Clear to auscultation. No wheezing, rales or rhonchi. Cardiovascular: S1 S2 regular. No murmurs, rubs or gallops. Gastrointestinal: Abdomen soft, non-tender, non-distended. Normal bowel sounds.? Neurologic: Cranial nerves II-XII grossly intact. No focal neurological deficits. Moves all extremities spontaneously.? Skin: No rashes or lesions.? Musculoskeletal: No cyanosis or clubbing. Psychiatric: Normal mood and affect? Results Labs 04/22/23 14:58 04/22/23 15:39 Labs: Laboratory Results - last 24 hr 04/22/23 04/22/23 14:58 15:39 MCV 94.3 MCH 34.4 H MCHC 36.5 H RDW 12.2 Plt Count 333 MPV 9.4 Immature Gran % (Auto) 0.1 Neut % (Auto) 52.4 Lymph % (Auto) 35.1 [place] % (Auto) 10.4 Eos % (Auto) 1.0 Baso % (Auto) 1.0 Lymph # (Auto) 2.5 [place] # (Auto) 0.7 Eos # (Auto) 0.1 Baso # (Auto) 0.1 Abs Immat Gran (auto) 0.01 Absolute Neuts (auto) 3.7 Absolute Nucleated RBC 0.000 Nucleated RBC % (auto) 0.0 PT 11.3 INR 0.9 Anion Gap 20 18 Estim Creat Clear Calc 54.3 57.6 Estimated GFR > 60 > 60 Random Glucose 92 85 Lactic Acid 2.4 H* Calcium 11.0 H 10.4 H Magnesium 2.4 Total Bilirubin 1.0 0.9 Direct Bilirubin 0.4 AST 32 H 29 ALT 29 27 Alkaline Phosphatase 101 94 Total Protein 7.6 7.1 Albumin 4.7 4.3 Lipase 29 COVID-19 (MELANY) Negative COVID-19 Clin Com See Note Imaging Radiologist's Impressions: Impressions Abdomen/Pelvis CT 04/22/23 15:20 IMPRESSION: Diffuse colonic diverticulosis without diverticulitis. Small bowel segments of mural thickening in the midabdomen with air-fluid level seen in some of the small bowel loops in the mid upper pelvis and midabdomen. Most likely enteritis. Mural thickening and peristalsis is considered less likely. Fleischner guidelines were followed. Assessment and Plan (1) Hyponatremia: Status: Acute (2) Acute hypokalemia: Status: Acute (3) Enteritis: Status: Acute (4) Abdominal pain: Status: Acute Plan 82 year famle with HTN, HLD, here with abdominal pain and found to have enteritis, normal WBC, no fever.. suspect viral enteritis, Hypokalemia and Hyponatremia d/t HCTZ Plan enteritis, IVF, pain control hypokalemia d/t hctz, replace and recheck, stop HCTZ mild Hyponatremia--d/t hct, stop and should correct with IVF HTN--hold HcTZ, if needed add Norvasc HLD -Continue home meds Acute lactic acidosis--not d/t sepsis dvt prophy compression device full code admit for 2 midnight for management of enteritis, and treatment of severe hypokalemia that will need cardiac moniting, and frequent levels discussed with patient and son Time Spent With Patient Time: Total time managing care of this patient today ____ minutes. Quality Stroke Does the patient have a stroke diagnosis?: No VTE Prior VTE?: No VTE Risk Level:: Medical - moderate - high VTE Device Contraindication: N/A - Device Ordered VTE Drug Contraindication: Treatment Not Indicated
[2023-04-22 16:23] LABS: Lipase 29 U/L (8-78)
[2023-04-22 16:38] VITALS: PULSE 66; RESP 16; TEMP 36.5; O2SAT 94
--- NOTE | 2023-04-22 16:51 | PHA.MEDREC ---
Pharmacy Consult ? Medication Reconciliation Pharmacy has completed the medication reconciliation. spoke with patient to confirm medications. She reports taking her morning meds
[2023-04-22 17:02] LABS: Reflex Lactate? Lactic Acid Added
[2023-04-22] MEDS: Potassium Chloride ER 20 MEQ TAB.ER.PRT 40 MEQ PO (17:09)
[2023-04-22 17:29] LABS: Appearance Urine Clear; Color Urine Yellow; Glucose Urine UA Negative (Negative); Leukocyte Esterase Urine Negative (Negative); Nitrite Urine Negative (Negative); Specific Gravity - Urine 1.015 (1.005-1.025); Urine Blood Negative (Negative); Urine Ketones Negative (Negative); Urine Protein Negative (Neg-Trace)
[2023-04-22 17:39] LABS: ~Lactic Acid-LAB USE ONLY 1.8 mmol/L (0.5-2.0)
--- NOTE | 2023-04-22 18:10 | PC.NURSE ---
pt moved from ED9 to ED7. resting comfortably at this time. call yang placed within reach.
[2023-04-22] MEDS: Acetaminophen 325 MG TABLET 650 MG PO (18:28)
[2023-04-22] MEDS: KCl 40 mEq in 0.9 % Sodium Chl 40 MEQ/1,000 ML IV.SOLN 100 MEQ IVCONT (18:38)
--- NOTE | 2023-04-22 19:15 | PC.NURSE ---
this RN attempted to give report to admitting RN - YASMIN Leslie notified this RN that pt ripped IV out and wanted to leave AMA. this RN discussed w/ pt about why she wanted to leave. pt stated that she needed to use the restroom and no one answered her call yang. admitting provider notified and aware at this time.
--- NOTE | 2023-04-22 20:36 | PC.NURSE ---
[place] [facility] [place] speaking w/ admitting provider. new 20g IV placed in the left AC w/o difficulty. pt currently being transferred upstairs via wheelchair by transport. night monitor in place.
[2023-04-22 21:31] VITALS: BMI 47.7
[2023-04-22] MEDS: Melatonin 3 MG TABLET 6 MG PO (21:35)
[2023-04-22] MEDS: diphenhydrAMINE HCL 50 MG/ML VIAL IVPUSH (21:37)
[2023-04-23] VITALS: BP 118/55; PULSE 57; RESP 20; TEMP 36.8; O2SAT 95
[2023-04-23] MEDS: Acetaminophen 325 MG TABLET 650 MG PO ×2 (00:22→09:33)
[2023-04-23] MEDS: KCl 40 mEq in 0.9 % Sodium Chl 40 MEQ/1,000 ML IV.SOLN 100 MEQ IVCONT (05:45)
[2023-04-23 08:00] VITALS: BP 134/63; PULSE 61; RESP 18; TEMP 36.3; O2SAT 93
--- NOTE | 2023-04-23 09:17 | PM.DS ---
DS: Providers Provider Date of Service: 04/23/23 Date of admission: 04/22/23 16:44 Primary care physician: Unknown Physician DS: Diagnosis Discharge Diagnosis (1) Hyponatremia: Status: Acute (2) Acute hypokalemia: Status: Acute (3) Enteritis: Status: Acute (4) Abdominal pain: Status: Acute DS: Summary Hospital Course Hospital Course: Chief Complaint: enteritis, hypokalemia 82 year old female with HTN takes HCTZ, HLD who presents with abdominal pain, in the mid abdomen onset this morning of moderate intensity, not associated w/ n/v or diarrhea, she thought it was constipation and so took laxative but didn't improve and therefore came to the ED. Work up with CT show enteritis, potassium is low at 2.7. Morphine has worked and presently no pain Hospital course: The patient was monitored overnight, received hydration, and had her sodium and potassium levels adjusted. The abdominal pain was likely a result of viral enteritis and has since resolved, with the patient now able to tolerate a regular diet. Hypokalemia, attributed to HCTZ, has been addressed by discontinuing the medication. The patient is to continue taking Norvasc for hypertension. Similarly, hyponatremia, also caused by HCTZ, should no longer be a concern with the discontinuation of the medication. Time Spent with Patient Time attestation: Total time managing care of this patient today ____ minutes. Discharge coordination time: Greater than 30 minutes Quality: Safe Use of Opioids Does Pt have an Active Cancer Diagnosis on the Problem List?: No Quality: Stroke Does the patient have a stroke diagnosis?: No Physical Exam Vital Signs: Vital Signs: Last Vital Signs Temp 97.3 F 04/23/23 08:00 Pulse 61 04/23/23 08:00 Resp 18 04/23/23 08:00 BP 134/63 04/23/23 08:00 Pulse Ox 93 04/23/23 08:00 O2 Del Method Room Air 04/23/23 08:00 BMI result Body Mass Index 47.7 DS: Data Data Completed and Pending Labs on day of discharge: Laboratory Results - last 24 hr 04/22/23 04/22/23 04/22/23 14:58 15:39 17:20 WBC 7.1 RBC 4.04 L Hgb 13.9 Hct 38.1 MCV 94.3 MCH 34.4 H MCHC 36.5 H RDW 12.2 Plt Count 333 MPV 9.4 Immature Gran % (Auto) 0.1 Neut % (Auto) 52.4 Lymph % (Auto) 35.1 [place] % (Auto) 10.4 Eos % (Auto) 1.0 Baso % (Auto) 1.0 Lymph # (Auto) 2.5 [place] # (Auto) 0.7 Eos # (Auto) 0.1 Baso # (Auto) 0.1 Abs Immat Gran (auto) 0.01 Absolute Neuts (auto) 3.7 Absolute Nucleated RBC 0.000 Nucleated RBC % (auto) 0.0 PT 11.3 INR 0.9 Sodium 135 133 L Potassium 2.7 L 2.7 L Chloride 97 98 Carbon Dioxide 21 L 20 L Anion Gap 20 18 BUN 14 14 Creatinine 0.70 0.66 Estim Creat Clear Calc 54.3 57.6 Estimated GFR > 60 > 60 Random Glucose 92 85 Lactic Acid 2.4 H* Lactic Acid F/U @ 2Hr 1.8 Calcium 11.0 H 10.4 H Magnesium 2.4 Total Bilirubin 1.0 0.9 Direct Bilirubin 0.4 AST 32 H 29 ALT 29 27 Alkaline Phosphatase 101 94 Troponin I High Sens < 2.7 Total Protein 7.6 7.1 Albumin 4.7 4.3 Lipase 29 29 Urine Color Urine Appearance Urine pH Ur Specific [place] Urine Protein Urine Glucose (UA) Urine Ketones Urine Blood Urine Nitrite Ur Leukocyte Esterase COVID-19 (MELANY) Negative COVID-19 Clin Com See Note 04/22/23 17:21 WBC RBC Hgb Hct MCV MCH MCHC RDW Plt Count MPV Immature Gran % (Auto) Neut % (Auto) Lymph % (Auto) [place] % (Auto) Eos % (Auto) Baso % (Auto) Lymph # (Auto) [place] # (Auto) Eos # (Auto) Baso # (Auto) Abs Immat Gran (auto) Absolute Neuts (auto) Absolute Nucleated RBC Nucleated RBC % (auto) PT INR Sodium Potassium Chloride Carbon Dioxide Anion Gap BUN Creatinine Estim Creat Clear Calc Estimated GFR Random Glucose Lactic Acid Lactic Acid F/U @ 2Hr Calcium Magnesium Total Bilirubin Direct Bilirubin AST ALT Alkaline Phosphatase Troponin I High Sens Total Protein Albumin Lipase Urine Color Yellow Urine Appearance Clear Urine pH 8.0 Ur Specific [place] 1.015 Urine Protein Negative Urine Glucose (UA) Negative Urine Ketones Negative Urine Blood Negative Urine Nitrite Negative Ur Leukocyte Esterase Negative COVID-19 (MELANY) COVID-19 Clin Com Discharge Plan Discharge Anticipated Discharge Date/Time: 04/23/23 09:07 Patient Disposition: Home, Self-Care Discharge Diagnosis: Abdominal pain, enteritis, Hypokalemia Referrals: Physician,Unknown J [Primary Care Provider] - 1 Week Discharge Medications: Continued multivitamin Tablet 1 tab PO DAILY atorvastatin 20 mg tablet 20 mg PO DAILY amlodipine 5 mg tablet 5 mg PO DAILY magnesium oxide 400 mg (241.3 mg magnesium) tablet 400 mg PO DAILY ferrous sulfate 325 mg (65 mg iron) tablet 325 mg PO BID Discontinued hydrochlorothiazide 25 mg tablet 25 mg PO DAILY Diet: Advance to usual diet Activity on Discharge: As tolerated Stand Alone Forms: Patient Portal Discharge page Care Plan Goals: Full reocvery Health Concerns: enteritis hyponatremia hypokalemia Plan of Treatment: drink plenty of fluid stop taking Hydrochlorothiazide follow up with your doctor in a week Assessment: as
[2023-04-23] MEDS: amLODIPine Besylate 5 MG TABLET PO (09:33)
[2023-04-23] MEDS: Multivitamin TABLET 1 TAB PO (09:33)
[2023-04-23] MEDS: Atorvastatin Calcium 20 MG TABLET PO (09:33)
[2023-04-23] MEDS: Magnesium Oxide 400 MG TABLET PO (09:33)
[2023-04-23] MEDS: Ferrous Sulfate 324 MG TABLET.DR PO (09:34)
[2023-04-23 10:32] LABS: Anion Gap 13 (12-20); Blood Urea Nitrogen 7 mg/dL (9-16); Calcium 9.4 mg/dL (8.4-10.2); Carbon Dioxide 23 mmol/L (22-29); Chloride 111 mmol/L (96-108); Creatinine Clr Calc Pharmacy 99.9; Estimated Glomerular Filt Rate > 60; Glucose Random 59 mg/dL (60-115); Potassium 4.4 mmol/L (3.3-5.1); Sodium 143 mmol/L (135-145)
[2023-04-23 10:44] LABS: Glucose, Whole Blood 96 mg/dL (60-115)
--- NOTE | 2023-04-23 11:29 | MHC.CM.PN ---
MD order for home, self-care prior to CM interview. CM acknowledge.
[2023-04-23 11:47] VITALS: BP 126/74; PULSE 62; RESP 16; TEMP 36.4; O2SAT 95
== END 2023-04-23 11:54 | disposition home or self-care (01) | DRG 392 ==
LOC: HO.ED 16:16 → HO.EDOVER 16:46 → HO.IMC 18:46
PROVIDERS: Nurse Practitioner Family; Physician Assistant; Admitting Provider Internal Medicine; Emergency Provider Emergency Medicine; Visit Provider Internal Medicine
DX: A08.4 Viral intestinal infection, unspecified (principal); E87.1 Hypo-osmolality and hyponatremia; E87.21 Acute metabolic acidosis; E78.5 Hyperlipidemia, unspecified; E87.6 Hypokalemia; I10 Essential (primary) hypertension; Z20.822 Contact with and (suspected) exposure to COVID-19; Z79.899 Other long term (current) drug therapy
CPT/HCPCS: 36415; 74177; 80048; 80053; 80076; 81003; 82947; 83605; 83690; 83735; 84484; 85025; 85610; 87040; 87635; 93005; 99285; J1200; J2270; J2405; Q9967

== ENCOUNTER → 2023-04-22 16:44 | Outpatient (BNV) | payer MEDICARE, SELFPAY | PROVIDERS: Admitting Provider Internal Medicine; Emergency Provider Emergency Medicine; Visit Provider Internal Medicine | DX: E87.1 Hypo-osmolality and hyponatremia (principal); E87.6 Hypokalemia; K52.9 Noninfective gastroenteritis and colitis, unspecified; R10.9 Unspecified abdominal pain | CPT/HCPCS: 99223; 99239 ==

== ENCOUNTER 2023-07-04 15:12 | Emergency (ER) | payer MEDICARE, SELFPAY ==
--- NOTE | ~2023-07-04 | CT_ITS ---
EXAMINATION: CT ABDOMEN AND PELVIS WITH CONTRAST CLINICAL INFORMATION: Abdominal pain and nausea COMPARISON: 04/22/2023 TECHNIQUE: Multidetector volumetric images were obtained from the superior aspect of the liver through the pubic symphysis following administration 85 mL of Omnipaque 350 intravenous contrast. Sagittal and coronal reformatted images were obtained on the technologist's workstation. Oral contrast: No This CT examination was performed using dose optimization techniques as appropriate, variously including the following: *Automated exposure control *Adjustment of mA and/or kV according to patient size (this includes techniques or standardized protocols for targeted exams where dose is matched to indication/reason for exam; i.e. extremities or head) *Use of iterative reconstruction technique DLP: 351 mGy-cm FINDINGS: LUNG BASES: Dependent atelectasis seen in the lung bases. LIVER, GALLBLADDER, AND BILIARY TREE: The liver is normal in size, shape, and attenuation. No focal hepatic lesion. There is mild intrahepatic biliary ductal dilatation. Common bile duct is normal in caliber. The gallbladder is unremarkable with no evidence of radiopaque gallstones, gallbladder wall thickening, or obvious pericholecystic inflammatory changes. PANCREAS: Unremarkable. SPLEEN: Unremarkable. ADRENAL GLANDS: Unremarkable. KIDNEYS AND URETERS: The kidneys are normal in size, shape, and attenuation. No hydronephrosis, hydroureter, or calculi seen. No perinephric stranding. There is a stable 2.2 cm simple cyst in the right kidney. No follow-up indicated. BLADDER: Unremarkable. GASTROINTESTINAL TRACT: The small and large bowel are unremarkable. The appendix is unremarkable. ABDOMINAL WALL: No significant hernia is appreciated. LYMPH NODES: Normal. VASCULAR: Atherosclerotic wall calcification seen in the abdominal aorta. PELVIC VISCERA: Uterus is atrophic. No adnexal mass lesion seen OSSEOUS STRUCTURES: There is superior endplate compression deformity of T11 which is only partially imaged on the prior exam but grossly unchanged. Degenerative changes with disc space narrowing and osteophyte formation is seen within the lumbar spine. Posterior facet joint arthropathy is seen within the lumbar spine. CT/CT abdomen pelvis w IV con IMPRESSION: 1. No acute process. 2. Mild intrahepatic biliary ductal dilatation. Common bile duct is normal in caliber. Gallbladder is unremarkable. 3. Stable right renal cyst. No follow-up indicated. Fleischner guidelines were followed.
--- NOTE | ~2023-07-04 | US_ITS ---
EXAMINATION: US ABDOMEN LIMITED CLINICAL INFORMATION: Right upper quadrant pain. COMPARISON: CT abdomen pelvis 07/04/2023 TECHNIQUE: Real-time imaging of the right upper quadrant abdominal viscera. FINDINGS: PANCREAS: Normal. LIVER: Normal. The liver is normal in size. The liver contour is normal. Parenchymal echogenicity is normal. No focal hepatic lesion. There is no intrahepatic biliary duct dilatation seen. GALLBLADDER: Normal. The gallbladder is physiologically distended without evidence of stones, sludge, polyps, wall thickening or pericholecystic fluid. COMMON BILE DUCT: Normal in caliber measuring 0.3 cm in diameter. RIGHT KIDNEY: A benign 2.0 cm Bosniak class I renal cyst is noted which requires no additional imaging or follow up. No solid renal masses are seen. No hydronephrosis. No renal calculi. The kidney measures 8.6 cm in maximum dimension. FREE FLUID: None. US/US abdomen limited IMPRESSION: Negative exam.
[2023-07-04 15:20] VITALS: BP 132/79; BP 137/44; PULSE 60; PULSE 68; RESP 18; TEMP 36.8; O2SAT 100; O2SAT 95; BMI 19.8
[2023-07-04 15:26] VITALS: BP 137/44; PULSE 68; RESP 18; TEMP 36.8; O2SAT 100
--- NOTE | 2023-07-04 16:41 | ECG_ITS ---
Test Reason : ABDOMINAL PAIN Blood Pressure : / mmHG Vent. Rate : 071 BPM Atrial Rate : 071 BPM P-R Int : 178 ms QRS Dur : 080 ms QT Int : 406 ms P-R-T Axes : 075 007 029 degrees QTc Int : 441 ms Normal sinus rhythm Nonspecific ST abnormality Abnormal ECG When compared with ECG of 22-APR-2023 14:48, Premature atrial complexes are no longer Present Referred By: Radha Sifuentes Electronically Signed By:FRED BOSS
--- NOTE | 2023-07-04 16:42 | ED_ITS ---
HPI - Abdominal Pain General Chief Complaint: Abdominal Pain Stated Complaint: Upper abdominal pain, intense cramping Time Seen by Provider: 07/04/23 16:03 Source: patient Mode of arrival: EMS Limitations: no limitations History of Present Illness HPI narrative: Patient is an 82-year-old female who presents emergency department by EMS for evaluation of abdominal pain. She reports 2 hours prior to arrival she developed sudden onset of severe pain to the epigastric region described as a burning and cramping sensation she states she was ?doubled over? due to the severity of her pain. At that time she did have nausea but no vomiting. At this time pain has improved, currently 2/10, but remains present. She denies associated chest pain, shortness of breath, back pain, genitourinary symptoms. She does states she has had a history abdominal pain approximately 2 months ago, it is unclear to her whether this pain feels similar, she also reports a remote history of ?gallbladder issues due to dairy?, but this has not occurred for a few years. She states that earlier in the day she was experiencing a headache, which she attributed to her consumption of 2 glasses of wine last night. Headache is minimal at this time and denies associated dizziness, lightheadedness, vision changes, neck pain, numbness or tingling of the extremities, weakness. Related Data Home Medications Medication Instructions Recorded Confirmed amlodipine 5 mg tablet 5 mg PO DAILY 04/22/23 04/22/23 atorvastatin 20 mg tablet 20 mg PO DAILY 04/22/23 04/22/23 ferrous sulfate 325 mg (65 mg 325 mg PO BID 04/22/23 04/22/23 iron) tablet magnesium oxide 400 mg (241.3 mg 400 mg PO DAILY 04/22/23 04/22/23 magnesium) tablet multivitamin 1 tab PO DAILY 04/22/23 04/22/23 Previous Rx's Medication Instructions Recorded dicyclomine 10 mg capsule 10 mg PO TID #20 caps 07/04/23 Allergies Allergy/AdvReac Type Severity Reaction Status Date / Time No Known Allergies Allergy Verified 07/04/23 15:25 Review of Systems Review of Systems Yes all other systems are reviewed and are negative PMFSH Past Medical History Attestation statement: The following information was validated with the patient. Source: old records reviewed Medical History HLD (hyperlipidemia) HTN (hypertension) Social History Social History Household Members: None Housing: House Alcohol intake: current Alcohol intake frequency: does not drink Alcohol type: wine and hard liquor Patient Tobacco Use Status: Never used Tobacco Smoked in Last 30 Days: No Use of substances other than those prescribed or required for medical reasons: No Advance Directives: No Advance Directives Information Provided: No Physical Exam ED Vital Signs: Vital Signs - 24 hr 07/04/23 15:20 07/04/23 15:26 07/04/23 17:19 Temperature 98.3 F 98.3 F Pulse Rate 68 68 69 Respiratory Rate 18 18 21 H Blood Pressure 137/44 L 137/44 L 139/50 L Pulse Oximetry 100 100 96 Oxygen Delivery Method Room Air Room Air Room Air 07/04/23 18:27 07/04/23 22:13 Temperature 98.9 F Pulse Rate 74 75 Respiratory Rate 14 12 Blood Pressure 140/54 H 139/50 L Pulse Oximetry 94 93 Oxygen Delivery Method Room Air Room Air BMI result Body Mass Index 19.8 Appearance: Alert.?Oriented to person, place and time. No acute distress.?Normal affect. Eyes: Pupils equal, round and reactive to light.? ENT: Pharynx normal.?? Neck: Normal inspection.? Neck supple.?? CVS: Heart sounds normal. Normal heart rate and rhythm.? Pulses normal.?? Respiratory: No respiratory distress.? Lung sounds clear to auscultation bilaterally?? Abdomen: Soft tenderness upon palpation to the epigastric and right upper quadrant. Negative Leos sign. No rebound tenderness. No rigidity. No guarding. Normoactive bowel sounds. No pulsatile mass.?? Skin: Skin warm and dry.? Normal skin color.? Extremities: No lower extremity edema.? No calf ttp? Neuro: Moves all extremities spontaneously. Sensation intact bilaterally. No focal neuro deficits. Ambulates with normal steady gait. Course Reevaluation(s) Reevaluation #1: CBC is without leukocytosis, no anemia. Lactic acid is within normal limits. Urinalysis is without evidence of infection. High sensitive troponin is detectable but within normal range at 4.0, EKG revealing normal sinus rhythm with ventricular rate of 71, normal [place] interval, QTC 441, no ST elevation, no ST depression, appears consistent with prior from April 2023. Patient did have a return of her pain to 6/10, which improved with morphine. Chemistries are pending at this time, spoke with nursing staff initial labs hemolyzed, obtaining redraw this time Time: 18:43 Reevaluation #2: CMP reveals a mild hypokalemia of 3.1 and EKG is without acute changes, mildly elevated AST/ALT consistent with prior levels, normal bilirubin. Lipase within normal limits. CT reveals mild intrahepatic biliary ductal dilation CBD normal caliber gallbladder unremarkable no evidence of radiopaque stone. Pain has resolved at this time. She feels overall well would like to return home this time. Feel that this is reasonable and she is stable for discharge. Recommended outpatient follow-up with primary care provider, reviewed worrisome signs and symptoms re-evaluation emergency department. All questions answered. Stable for discharge. Time: 21:41 Reevaluation #3: Nursing staff is advised me at this time that upon review discharge instructions patient reporting again sudden onset of severe pain to the right upper quadrant/epigastric region. Patient does not feel comfortable with discharge home at this time. Upon re-evaluation she does continue to have tenderness on palpation. Plan to obtain right upper quadrant ultrasound for further evaluation at this time. Time: 22:26 Additional Reevaluation(s): For quadrant ultrasound unremarkable. Pain with significant improvement at this time. Reviewed with findings concerning for S with gastritis, sent prescription for medication of patient's pharmacy, reviewed worrisome signs and symptoms that would warrant re-evaluation emergency department, bland diet. All questions answered. Stable for discharge. Medical Decision Making Medical Decision Making MDM Narrative: Patient is an 82-year-old female with past medical history hypertension hyperlipidemia presenting to emergency department for evaluation of abdominal pain as per HPI. At the time of my examination she appears overall well, pain has significantly improved by her account but is still present. She is nontoxic in appearance, afebrile, without tachycardia tachypnea or hypoxia. She has notable tenderness upon palpation over the epigastrium and right upper quadrant, there is however no rigidity or guarding. Will obtain CBC to evaluate for leukocytosis/ anemia, CMP and lipase to evaluate for abnormal electrolytes /abnormal renal function/ abnormal hepatic/biliary function, EKG and troponin to evaluate for ischemia/ACS, CT AP and Urinalysis. Differential Diagnosis Differential Diagnoses: The differential diagnosis associated with the presentation includes (Cholecystitis, biliary colic, diverticulitis, pancreatitis, appendicitis, bowel obstruction, atypical ACS, urinary tract infection. Suspect less likely mesenteric ischemia, ureteral calculi, hydronephrosis.) Admission/Observation Consideration of admission/observation: Escalation of care including admission/observation considered (See narrative above and course narrative for further detail) Lab Data MDM Lab Attestation statement: I reviewed the patient's lab results. (See course narrative for further detail) 07/04/23 17:11 07/04/23 19:08 Labs: Lab Results 07/04/23 07/04/23 07/04/23 Range/Units 17:11 17:17 17:51 WBC 7.2 (4.8-10.8) X10*3/uL RBC 4.10 L (4.20-5.50) X10*6/uL Hgb 13.6 (12.0-16.0) g/dl Hct 39.3 (37.0-47.0) % MCV 95.9 (80.0-98.0) fL MCH 33.2 H (27.0-33.0) pg MCHC 34.6 (31.0-35.0) g/dl RDW 12.4 (11.0-16.0) % Plt Count 274 (160-400) X10*3/uL MPV 9.7 (9.4-12.3) fL Immature Gran % (Auto) 0.1 (0.0-0.4) % Neut % (Auto) 87.0 H (45-73) % Lymph % (Auto) 8.3 L (20-40) % [place] % (Auto) 3.6 (2-11) % Eos % (Auto) 0.4 (0-4) % Baso % (Auto) 0.6 (0-2) % Lymph # (Auto) 0.6 L (1.2-4.9) X10*3/uL [place] # (Auto) 0.3 (0.1-1.2) X10*3/uL Eos # (Auto) 0.0 (0.0-0.4) X10*3/uL Baso # (Auto) 0.0 (0.0-0.2) X10*3/uL Abs Immat Gran (auto) 0.01 (0.00-0.03) X10*3/uL Absolute Neuts (auto) 6.3 (2.0-8.3) x10*3/uL Absolute Nucleated RBC 0.000 (0.0-0.012) X10*3/uL Nucleated RBC % (auto) 0.0 (0.0-0.2) /100WBC Sodium (135-145) mmol/L Potassium (3.3-5.1) mmol/L Chloride (96-108) mmol/L Carbon Dioxide (22-29) mmol/L Anion Gap (12-20) BUN (9-16) mg/dL Creatinine (0.5-1.4) mg/dL Estim Creat Clear Calc Estimated GFR Random Glucose (60-115) mg/dL Lactic Acid 1.6 (0.5-2.0) mmol/L Calcium (8.4-10.2) mg/dL Magnesium (1.6-2.6) mg/dL Total Bilirubin (0.0-1.0) mg/dL AST (5-31) U/L ALT (0-31) U/L Alkaline Phosphatase (39-117) U/L Troponin I High Sens 4.0 (<3.5-17.0) ng/L Total Protein (6.5-8.0) g/dL Albumin (3.5-5.0) g/dL Lipase (8-78) U/L Urine Color Yellow Urine Appearance Cloudy Urine pH 8.5 (5.0-9.0) Ur Specific [place] 1.020 (1.005-1.025) Urine Protein Negative (Neg-Trace) mg/dL Urine Glucose (UA) Negative (Negative) mg/dL Urine Ketones Negative (Negative) mg/dL Urine Blood Negative (Negative) Urine Nitrite Negative (Negative) Ur Leukocyte Esterase Negative (Negative) COVID-19 ([facility]ANY) Negative (Negative) COVID-19 Clin Com See Note Influenza Type A ([facility]ADAN) (Negative) Influenza Type B ([facility]ADAN) (Negative) Influenza A & B Note 07/04/23 Range/Units 19:08 WBC (4.8-10.8) X10*3/uL RBC (4.20-5.50) X10*6/uL Hgb (12.0-16.0) g/dl Hct (37.0-47.0) % MCV (80.0-98.0) fL MCH (27.0-33.0) pg MCHC (31.0-35.0) g/dl RDW (11.0-16.0) % Plt Count (160-400) X10*3/uL MPV (9.4-12.3) fL Immature Gran % (Auto) (0.0-0.4) % Neut % (Auto) (45-73) % Lymph % (Auto) (20-40) % [place] % (Auto) (2-11) % Eos % (Auto) (0-4) % Baso % (Auto) (0-2) % Lymph # (Auto) (1.2-4.9) X10*3/uL [place] # (Auto) (0.1-1.2) X10*3/uL Eos # (Auto) (0.0-0.4) X10*3/uL Baso # (Auto) (0.0-0.2) X10*3/uL Abs Immat Gran (auto) (0.00-0.03) X10*3/uL Absolute Neuts (auto) (2.0-8.3) x10*3/uL Absolute Nucleated RBC (0.0-0.012) X10*3/uL Nucleated RBC % (auto) (0.0-0.2) /100WBC Sodium 139 (135-145) mmol/L Potassium 3.1 L D (3.3-5.1) mmol/L Chloride 104 (96-108) mmol/L Carbon Dioxide 26 (22-29) mmol/L Anion Gap 12 (12-20) BUN 15 (9-16) mg/dL Creatinine 0.60 (0.5-1.4) mg/dL Estim Creat Clear Calc 61.6 Estimated GFR > 60 Random Glucose 106 (60-115) mg/dL Lactic Acid (0.5-2.0) mmol/L Calcium 9.6 (8.4-10.2) mg/dL Magnesium 2.3 (1.6-2.6) mg/dL Total Bilirubin 0.5 (0.0-1.0) mg/dL AST 34 H (5-31) U/L ALT 37 H (0-31) U/L Alkaline Phosphatase 90 (39-117) U/L Troponin I High Sens (<3.5-17.0) ng/L Total Protein 6.4 L (6.5-8.0) g/dL Albumin 3.9 (3.5-5.0) g/dL Lipase 13 (8-78) U/L Urine Color Urine Appearance Urine pH (5.0-9.0) Ur Specific [place] (1.005-1.025) Urine Protein (Neg-Trace) mg/dL Urine Glucose (UA) (Negative) mg/dL Urine Ketones (Negative) mg/dL Urine Blood (Negative) Urine Nitrite (Negative) Ur Leukocyte Esterase (Negative) COVID-19 (MELANY) (Negative) COVID-19 Clin Com Influenza Type A (LADAN) Negative (Negative) Influenza Type B ([facility]ADAN) Negative (Negative) Influenza A & B Note See Note Independent Interpretation I performed an independent interpretation of an: CT Scan Radiology Impression Discussion of test interpretation with radiology: I have reviewed the radiologist's reading. Radiologist Impression: CT/CT abdomen pelvis w IV con IMPRESSION: 1. No acute process. 2. Mild intrahepatic biliary ductal dilatation. Common bile duct is normal in caliber. Gallbladder is unremarkable. 3. Stable right renal cyst. No follow-up indicated. US/US abdomen limited IMPRESSION: Negative exam. Independent Historian Clinical information obtained from an independent historian. History obtained from or confirmed by: Other (Daughter present at bedside who confirms history) External Record Review External record reviewed: Outpatient record Medications Administered Discontinued Medications Generic Name Dose Route Start Last Admin Trade Name Freq PRN Reason Stop Dose Admin Acetaminophen 650 mg 07/04/23 22:15 07/04/23 22:23 Acetaminophen 325 Mg Tablet PO 07/04/23 22:16 325 mg ONCE ONE Administration Sodium Chloride 1,000 mls @ 999 mls/hr 07/04/23 19:45 07/04/23 22:08 Ns IV 07/04/23 20:45 Infused .Q1H1M WKAME Infusion Iohexol 100 ml 07/04/23 20:05 07/04/23 20:06 Iohexol 350 Mg/Ml 100 Ml Infus..Btl IV 07/04/23 20:06 85 ml ONCE ONE Administration Morphine Sulfate 2 mg 07/04/23 17:15 07/04/23 18:29 Morphine Sulfate 2 Mg/Ml Cartridge IVPUSH 07/04/23 17:16 2 mg ONCE ONE Administration Protocol Discharge Plan Discharge Clinical Impression: Abdominal pain Patient Disposition: Home, Self-Care Instructions: Abdominal Pain (ED) Additional Instructions: Continue taking all of your medications as prescribed. Introduce a bland diet including crackers, bananas, rice, soup, toast, and boiled vegetables. This may progress to plain baked or boiled chicken or turkey. Avoid dairy products or foods high in fat or grease. Follow-up with your primary care provider within 1-3 days. Return back to emergency department any new or worsening symptoms or concerns. Prescriptions: New dicyclomine 10 mg capsule 10 mg PO TID Qty: 20 0RF No Action multivitamin Tablet 1 tab PO DAILY atorvastatin 20 mg tablet 20 mg PO DAILY amlodipine 5 mg tablet 5 mg PO DAILY magnesium oxide 400 mg (241.3 mg magnesium) tablet 400 mg PO DAILY ferrous sulfate 325 mg (65 mg iron) tablet 325 mg PO BID Referrals: Physician,Unknown J [Primary Care Provider] - Interventions: ED Discharge Assessment Last Done: 07/05/23 00:07 Discharge Date/Time: 07/05/23 00:08
[2023-07-04 17:19] VITALS: BP 139/50; PULSE 69; RESP 21; O2SAT 96
[2023-07-04 17:19] LABS: MANUAL DIFF FLAG NO
[2023-07-04 17:21] LABS: Basophils Percent Auto 0.6 % (0-2); Eosinophils Percent Auto 0.4 % (0-4); Hematocrit 39.3 % (37.0-47.0); Hemoglobin 13.6 g/dl (12.0-16.0); Imm Gran Abs Auto 0.01 X10*3/uL (0.00-0.03); Imm Gran Pct Auto 0.1 % (0.0-0.4); Lymphocytes Absolute Auto 0.6 X10*3/uL (1.2-4.9); Lymphocytes Percent Auto 8.3 % (20-40); Mean Corpuscular HGB Conc 34.6 g/dl (31.0-35.0); Mean Corpuscular Hemoglobin 33.2 pg (27.0-33.0); Mean Corpuscular Volume 95.9 fL (80.0-98.0); Mean Platelet Volume 9.7 fL (9.4-12.3); Monocytes Absolute Auto 0.3 X10*3/uL (0.1-1.2); Monocytes Percent Auto 3.6 % (2-11); Neutrophils Absolute Auto 6.3 x10*3/uL (2.0-8.3); Platelet Count 274 X10*3/uL (160-400); Red Cell Distribution Width 12.4 % (11.0-16.0); White Blood Count 7.2 X10*3/uL (4.8-10.8)
[2023-07-04 17:36] LABS: Lactic Acid 1.6 mmol/L (0.5-2.0)
[2023-07-04 18:01] LABS: Appearance Urine Cloudy; Color Urine Yellow; Glucose Urine UA Negative (Negative); Leukocyte Esterase Urine Negative (Negative); Nitrite Urine Negative (Negative); PH 8.5 (5.0-9.0); Urine Blood Negative (Negative); Urine Ketones Negative (Negative); Urine Protein Negative (Neg-Trace)
[2023-07-04 18:27] VITALS: BP 140/54; PULSE 74; RESP 14; O2SAT 94
[2023-07-04] MEDS: Morphine Sulfate 2 MG/ML CARTRIDGE IVPUSH (18:29)
[2023-07-04 18:35] LABS: COVID-19 Test Negative (Negative); IDNOW Serial# 08D9AD1C
[2023-07-04 19:29] LABS: IDNOW Serial# BCCEAD1C; Influenza A Negative (Negative); Influenza B2 Negative (Negative)
[2023-07-04 19:31] LABS: Alanine Aminotransferase 37 U/L (0-31); Albumin Level 3.9 g/dL (3.5-5.0); Alkaline Phosphatase 90 U/L (39-117); Anion Gap 12 (12-20); Aspartate Amino Transferase 34 U/L (5-31); Bilirubin Total 0.5 mg/dL (0.0-1.0); Blood Urea Nitrogen 15 mg/dL (9-16); Calcium 9.6 mg/dL (8.4-10.2); Carbon Dioxide 26 mmol/L (22-29); Chloride 104 mmol/L (96-108); Creatinine Clr Calc Pharmacy 61.6; Estimated Glomerular Filt Rate > 60; Glucose Random 106 mg/dL (60-115); Lipase 13 U/L (8-78); Magnesium 2.3 mg/dL (1.6-2.6); Potassium 3.1 mmol/L (3.3-5.1); Sodium 139 mmol/L (135-145); Total Protein 6.4 g/dL (6.5-8.0)
[2023-07-04] MEDS: iohexoL 350 MG/ML 100 ML INFUS..BTL IV (20:06)
[2023-07-04] MEDS: 0.9 % Sodium Chloride 1,000 ML 999 ML IV (20:07)
[2023-07-04 22:13] VITALS: BP 139/50; PULSE 75; RESP 12; TEMP 37.2; O2SAT 93
[2023-07-04] MEDS: Acetaminophen 325 MG TABLET 650 MG PO (22:23)
== END 2023-07-05 00:08 | disposition home or self-care (01) ==
PROVIDERS: Nurse Practitioner Family; Emergency Provider Emergency Medicine
DX: R10.13 Epigastric pain (principal); R11.2 Nausea with vomiting, unspecified; R94.31 Abnormal electrocardiogram [ECG] [EKG]; Z79.899 Other long term (current) drug therapy; Z11.52 Encounter for screening for COVID-19; Z20.822 Contact with and (suspected) exposure to COVID-19
CPT/HCPCS: 74177; 76705; 80053; 81003; 83605; 83690; 83735; 84484; 85025; 87502; 87635; 93005; 96361; 96374; 99284; 99285; J2270; Q9967

== ENCOUNTER → 2023-07-04 16:41 | Outpatient (BNV) | payer MEDICARE, SELFPAY | PROVIDERS: Emergency Provider Emergency Medicine; Visit Provider Internal Medicine | DX: R94.31 Abnormal electrocardiogram [ECG] [EKG] (principal); R10.9 Unspecified abdominal pain | CPT/HCPCS: 93010 ==

== ENCOUNTER 2024-02-12 11:34 | Emergency (ER) | payer MEDICARE, SELFPAY ==
--- NOTE | ~2024-02-12 | XR_ITS ---
EXAMINATION: XR KNEE, RIGHT CLINICAL INFORMATION: Patient states fall this past Monday, pain in right knee. COMPARISON: None available. TECHNIQUE: Four views of the right knee. FINDINGS: Diffuse demineralization. Small joint effusion. Evaluation on lateral view limited as knee in flexed position. Mild narrowing of the medial compartment. Chondrocalcinosis in the lateral compartment. XR/XR knee RT 4V IMPRESSION: 1. [id number] degenerative changes. 2. Small joint effusion. Evaluation limited on lateral view as knee flexed. 3. Diffuse demineralization. Additional imaging with CT scan or MRI should be considered for further evaluation if there is clinical concern for fracture or other underlying pathology. This study was presented today, February 12, 2024, for interpretation. Stat results provided at this time as requested by referring provider.
--- NOTE | ~2024-02-12 | CT_ITS ---
EXAMINATION: CT HEAD WITHOUT CONTRAST CT FACIAL BONES WITHOUT CONTRAST CT CERVICAL SPINE WITHOUT CONTRAST CLINICAL INFORMATION: Head trauma. COMPARISON: None. TECHNIQUE: Imaging was performed from the skull base to vertex without intravenous administration of contrast. In addition, helical noncontrast CT imaging was acquired through the cervical spine and facial bones and source images were reviewed along with axial reconstructions and sagittal and coronal MPRs. [This CT examination was performed using dose optimization techniques as appropriate, variously including the following: *Automated exposure control *Adjustment of mA and/or kV according to patient size (this includes techniques or standardized protocols for targeted exams where dose is matched to indication/reason for exam; i.e. extremities or head) *Use of iterative reconstruction technique] DLP: 1071 mGy-cm FINDINGS: HEAD: Status post left frontal craniotomy. No intracranial mass, hemorrhage, or midline shift is visualized. There is generalized global volume loss. There is moderate prominence of the ventricles and the sulci . There is mild hypodensity of the periventricular white matter due to chronic small vessel ischemic disease. There are vascular calcifications of the internal carotid arteries bilaterally. No extra-axial collections are identified. FACIAL BONES: There is no evidence of an acute facial bone fracture. The paranasal sinuses are well aerated. The orbits are unremarkable in appearance. CERVICAL SPINE: There is no evidence of acute cervical spine fracture. Vertebral bodies remain normal in height. Advanced multilevel degenerative spondylosis. Cervical disc height narrowing with endplate irregularity and endplate spurs and multilevel facet joint arthrosis.. No pre- or paravertebral soft tissue abnormality is identified. Limited assessment of the lung apices is unremarkable. CT/CT cervical spine wo IV con IMPRESSION: 1. No acute intracranial process or discrete facial bone fracture. 2. No acute cervical spine fracture or traumatic subluxation.
[2024-02-12 11:39] VITALS: BP 123/68; PULSE 78; RESP 17; TEMP 36.7; O2SAT 97; BMI 18.5
[2024-02-12 12:06] VITALS: BP 105/59; PULSE 81; PULSE 84; RESP 18; TEMP 36.6; O2SAT 100
[2024-02-12 12:34] LABS: MANUAL DIFF FLAG NO
--- NOTE | 2024-02-12 12:36 | PC.NURSE ---
no nuero deficits noted. pt states most severe pain is in right knee. has chronic headaches which are no worse now than usual. racoon eye bruising. slightly forgetful but may be baseline per family. denies nausea/vomiting. follows commands w/o diff.
[2024-02-12 12:37] LABS: Basophils Absolute Auto 0.1 X10*3/uL (0.0-0.2); Basophils Percent Auto 0.9 % (0-2); Eosinophils Absolute Auto 0.1 X10*3/uL (0.0-0.4); Hematocrit 39.4 % (37.0-47.0); Hemoglobin 13.7 g/dl (12.0-16.0); Imm Gran Abs Auto 0.01 X10*3/uL (0.00-0.03); Imm Gran Pct Auto 0.1 % (0.0-0.4); Lymphocytes Absolute Auto 2.4 X10*3/uL (1.2-4.9); Lymphocytes Percent Auto 34.5 % (20-40); Mean Corpuscular HGB Conc 34.8 g/dl (31.0-35.0); Mean Corpuscular Hemoglobin 33.8 pg (27.0-33.0); Mean Corpuscular Volume 97.3 fL (80.0-98.0); Mean Platelet Volume 9.8 fL (9.4-12.3); Monocytes Absolute Auto 0.9 X10*3/uL (0.1-1.2); Monocytes Percent Auto 13.5 % (2-11); Neutrophils Absolute Auto 3.5 x10*3/uL (2.0-8.3); Platelet Count 296 X10*3/uL (160-400); Red Blood Count 4.05 X10*6/uL (4.20-5.50); Red Cell Distribution Width 12.6 % (11.0-16.0); White Blood Count 6.9 X10*3/uL (4.8-10.8)
[2024-02-12 12:43] LABS: INTERNATIONAL NORM RATIO 0.9 (0.9-1.1)
--- NOTE | 2024-02-12 12:52 | ED.FALL ---
HPI - Fall General Chief Complaint: Fall Stated Complaint: headache, fell Time Seen by Provider: 02/12/24 12:03 Source: patient, family and old records reviewed Mode of arrival: ambulatory Limitations: no limitations History of Present Illness ED Provider: MANUEL TRAORE Narrative: 83 yo female with PMH of HTN, HLD, anemia, 3+ drinks a day who notes on Monday AM she bent forward to pull up her pants on toilet and fell forward striking face on ground - no LOC and got up without issue. She comes in as her R knee hurts and she has facial bruising. Family also advised her to get her injuries checked out. She is not on blood thinners and they feel she is at her baseline. MD complaint: fall Onset (ago): day(s) (Monday) Fall from: other (toilet) Place fall occurred: home Loss of consciousness: none Prolonged down time: no Symptoms prior to fall: none Context: tripped/slipped Location of injury: head and face Location of injury - extremities: right: knee Severity: mild Quality: aching Associated symptoms (after fall): denies Related Data Home Medications ?Medication ?Instructions ?Recorded ?Confirmed amlodipine 5 mg tablet 5 mg PO DAILY 04/22/23 04/22/23 atorvastatin 20 mg tablet 20 mg PO DAILY 04/22/23 04/22/23 ferrous sulfate 325 mg (65 mg 325 mg PO BID 04/22/23 04/22/23 iron) tablet magnesium oxide 400 mg (241.3 mg 400 mg PO DAILY 04/22/23 04/22/23 magnesium) tablet multivitamin 1 tab PO DAILY 04/22/23 04/22/23 Previous Rx's ?Medication ?Instructions ?Recorded dicyclomine 10 mg capsule 10 mg PO TID #20 caps 07/04/23 Allergies Allergy/AdvReac Type Severity Reaction Status Date / Time No Known Allergies Allergy Verified 02/12/24 11:47 Review of Systems Review of Systems: Constitutional : No Fever, No Chills ENT/Mouth : No Ear Pain, No Hoarseness, No sore throat Eyes: No Eye Pain, No Swelling, No Redness, No Foreign Body Cardiovascular : No Chest Pain, No SOB Respiratory : No Cough, No Dyspnea Gastrointestinal : No Nausea, No Vomiting, No Diarrhea, No abdominal Pain Genitourinary : No Dysuria, No Hematuria Musculoskeletal : positive joint pain, No Myalgias, pos Joint Swelling Skin : No Skin lacerations, No rash Neuro : No Weakness, No Numbness, No Loss of Consciousness, No Dizziness, No Headache Psych : No Anxiety/Panic, No Depression All other systems reviewed and are negative [facility] Past Medical History Attestation statement: The following information was validated with the patient. Source: old records reviewed Medical History HLD (hyperlipidemia) HTN (hypertension) Social History Social History Household Members: None Housing: House Alcohol intake: current Alcohol intake frequency: 3 or more drinks per day Alcohol type: wine Patient Tobacco Use Status: Never used Tobacco Smoked in Last 30 Days: No Use of substances other than those prescribed or required for medical reasons: No Advance Directives: Yes Advance Directives on File: No Do you have a plan to hurt others: No Plan Physical Exam Vital Signs: Vital Signs: Last Vital Signs Temp 97.9 F 02/12/24 12:06 Pulse 84 02/12/24 12:06 Resp 18 02/12/24 12:06 BP 105/59 L 02/12/24 12:06 Pulse Ox 100 02/12/24 12:06 O2 Del Method Room Air 02/12/24 12:06 BMI result Body Mass Index 18.5 Appearance: Alert. Oriented X3. No acute distress. Eyes: Pupils equal, round and reactive to light. Bilateral periorbital ecchymosis, no gonzalez sign, no hemotympanum no nasal septal hematoma ENT: Pharynx normal. Neck: Normal inspection. Neck supple. CVS: Normal heart rate and rhythm. Pulses normal. Respiratory: No respiratory distress. Breath sounds normal. Abdomen: Soft and nontender. Skin: Skin warm and dry. Normal skin color. Normal skin turgor. Extremities: No lower extremity edema. R knee ttp and mild swelling to R patella Neuro: Oriented X 3. No motor deficit. No sensory deficit. Medications Administered Discontinued Medications Generic Name Dose Route Start Last Admin Trade Name Freq PRN Reason Stop Dose Admin Thiamine HCl 200 mg/ Sodium 102 mls @ 204 mls/hr 02/12/24 12:09 02/12/24 14:32 Chloride IV 02/12/24 12:38 204 mls/hr ONCE ONE Administration Medical Decision Making Medical Decision Making MDM Narrative: 83 yo female with PMH of HTN, HLD, anemia, 3+ drinks a day here with c/o slip and fall at home striking face no LOC and baseline is at baseline she also c/o R knee pain. She is not on blood thinners at this time given injuries, labs, xray of R knee, CT head/cspine and facial bones ordered. Given ETOH use IV thiamine ordered. Differential Diagnosis Differential Diagnoses: The differential diagnosis associated with the presentation includes ICH, falls, contusion, fracture Admission/Observation Consideration of admission/observation: Escalation of care including admission/observation considered at her baseline stable for DC Lab Data [facility] Lab Attestation statement: I reviewed the patient's lab results. 02/12/24 12:28 02/12/24 12:28 Labs: Lab Results 02/12/24 Range/Units 12:28 WBC 6.9 (4.8-10.8) X10*3/uL RBC 4.05 L (4.20-5.50) X10*6/uL Hgb 13.7 (12.0-16.0) g/dl Hct 39.4 (37.0-47.0) % MCV 97.3 (80.0-98.0) fL MCH 33.8 H (27.0-33.0) pg MCHC 34.8 (31.0-35.0) g/dl RDW 12.6 (11.0-16.0) % Plt Count 296 (160-400) X10*3/uL MPV 9.8 (9.4-12.3) fL Immature Gran % (Auto) 0.1 (0.0-0.4) % Neut % (Auto) 50.0 (45-73) % Lymph % (Auto) 34.5 (20-40) % [place] % (Auto) 13.5 H (2-11) % Eos % (Auto) 1.0 (0-4) % Baso % (Auto) 0.9 (0-2) % Lymph # (Auto) 2.4 (1.2-4.9) X10*3/uL [place] # (Auto) 0.9 (0.1-1.2) X10*3/uL Eos # (Auto) 0.1 (0.0-0.4) X10*3/uL Baso # (Auto) 0.1 (0.0-0.2) X10*3/uL Abs Immat Gran (auto) 0.01 (0.00-0.03) X10*3/uL Absolute Neuts (auto) 3.5 (2.0-8.3) x10*3/uL Absolute Nucleated RBC 0.000 (0.0-0.012) X10*3/uL Nucleated RBC % (auto) 0.0 (0.0-0.2) /100WBC PT 11.0 L (11.1-13.3) SEC INR 0.9 (0.9-1.1) Sodium 139 (135-145) mmol/L Potassium 4.0 (3.3-5.1) mmol/L Chloride 104 (96-108) mmol/L Carbon Dioxide 24 (22-29) mmol/L Anion Gap 15 (12-20) BUN 18 H (9-16) mg/dL Creatinine 0.73 (0.5-1.4) mg/dL Estim Creat Clear Calc 47.9 Estimated GFR > 60 Random Glucose 97 (60-115) mg/dL Calcium 10.4 H D (8.4-10.2) mg/dL Magnesium 2.1 (1.6-2.6) mg/dL Total Bilirubin 0.7 (0.0-1.0) mg/dL Direct Bilirubin 0.2 (0.0-0.5) mg/dL AST 34 H (5-31) U/L ALT 30 (0-31) U/L Alkaline Phosphatase 88 (39-117) U/L Total Protein 7.2 (6.5-8.0) g/dL Albumin 4.1 (3.5-5.0) g/dL Independent Interpretation I performed an independent interpretation of an: Plain X-Ray (no fracture) and CT Scan (no trauma) Interpretation: repeat calls to radiology for read I 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 Independent Historian Clinical information obtained from an independent historian. History obtained from or confirmed by: Other (family) External Record Review External record reviewed: Office record Discharge Plan Discharge Clinical Impression: Contusion of knee, right Qualifiers: Encounter type: initial encounter Qualified Code(s): S80.01XA - Contusion of right knee, initial encounter Contusion of face Qualifiers: Encounter type: initial encounter Qualified Code(s): S00.83XA - Contusion of other part of head, initial encounter Patient Disposition: Home, Self-Care Instructions: Facial Contusion (ED), Contusion in Adults (ED) Additional Instructions: return for worsening pain, vomiting, confusion. xray negative of knee if it continues to cause pain may want MRI of knee for further evaluation HEAD: Status post left frontal craniotomy. No intracranial mass, hemorrhage, or midline shift is visualized. There is generalized global volume loss. There is moderate prominence of the ventricles and the sulci . There is mild hypodensity of the periventricular white matter due to chronic small vessel ischemic disease. There are vascular calcifications of the internal carotid arteries bilaterally. No extra-axial collections are identified. FACIAL BONES: There is no evidence of an acute facial bone fracture. The paranasal sinuses are well aerated. The orbits are unremarkable in appearance. CERVICAL SPINE: There is no evidence of acute cervical spine fracture. Vertebral bodies remain normal in height. Advanced multilevel degenerative spondylosis. Cervical disc height narrowing with endplate irregularity and endplate spurs and multilevel facet joint arthrosis.. No pre- or paravertebral soft tissue abnormality is identified. Limited assessment of the lung apices is unremarkable. CT/CT cervical spine wo IV con IMPRESSION: 1. No acute intracranial process or discrete facial bone fracture. 2. No acute cervical spine fracture or traumatic subluxation. Prescriptions: No Action multivitamin Tablet 1 tab PO DAILY atorvastatin 20 mg tablet 20 mg PO DAILY amlodipine 5 mg tablet 5 mg PO DAILY magnesium oxide 400 mg (241.3 mg magnesium) tablet 400 mg PO DAILY ferrous sulfate 325 mg (65 mg iron) tablet 325 mg PO BID dicyclomine 10 mg capsule 10 mg PO TID Qty: 20 0RF Print Language: Cymro
[2024-02-12 12:59] LABS: Alanine Aminotransferase 30 U/L (0-31); Albumin Level 4.1 g/dL (3.5-5.0); Alkaline Phosphatase 88 U/L (39-117); Anion Gap 15 (12-20); Aspartate Amino Transferase 34 U/L (5-31); Bilirubin Direct 0.2 mg/dL (0.0-0.5); Bilirubin Total 0.7 mg/dL (0.0-1.0); Blood Urea Nitrogen 18 mg/dL (9-16); Calcium 10.4 mg/dL (8.4-10.2); Carbon Dioxide 24 mmol/L (22-29); Chloride 104 mmol/L (96-108); Creatinine Clr Calc Pharmacy 47.9; Estimated Glomerular Filt Rate > 60; Glucose Random 97 mg/dL (60-115); Magnesium 2.1 mg/dL (1.6-2.6); Sodium 139 mmol/L (135-145); Total Protein 7.2 g/dL (6.5-8.0)
[2024-02-12] MEDS: Thiamine HCL 200 MG in 0.9 % Sodium Chloride 100 ML 204 MG IV (14:32)
[2024-02-12 16:19] VITALS: BP 136/78; PULSE 88; RESP 18; TEMP 36.7; O2SAT 97
[2024-02-12 16:47] VITALS: BP 136/78; PULSE 88; RESP 18; TEMP 36.7; O2SAT 97
== END 2024-02-12 16:48 | disposition home or self-care (01) ==
PROVIDERS: Emergency Provider Emergency Medicine
DX: S80.01XA Contusion of right knee, initial encounter (principal); R51.9 Headache, unspecified; M25.561 Pain in right knee; M54.2 Cervicalgia; W01.0XXA Fall on same level from slipping, tripping and stumbling without subsequent striking against object, initial encounter; Y93.89 Activity, other specified; Y92.002 Bathroom of unspecified non-institutional (private) residence as the place of occurrence of the external cause; Y99.8 Other external cause status; Z79.899 Other long term (current) drug therapy
CPT/HCPCS: 36415; 70450; 70486; 72125; 73564; 80048; 80076; 83735; 85025; 85610; 96374; 99284; J3411

== ENCOUNTER 2025-03-14 09:57 | Emergency (ER) | payer MEDICARE, SELFPAY ==
--- NOTE | ~2025-03-14 | CT_ITS ---
EXAMINATION: CT ABDOMEN AND PELVIS WITH CONTRAST CLINICAL INFORMATION: Abdominal pain. COMPARISON: July 04, 2023. TECHNIQUE: Multidetector volumetric images were obtained from the superior aspect of the liver through the pubic symphysis following administration 65 mL of Omnipaque 350 intravenous contrast. Sagittal and coronal reformatted images were obtained on the technologist's workstation. Oral contrast: No This CT examination was performed using dose optimization techniques as appropriate, variously including the following: *Automated exposure control *Adjustment of mA and/or kV according to patient size (this includes techniques or standardized protocols for targeted exams where dose is matched to indication/reason for exam; i.e. extremities or head) *Use of iterative reconstruction technique DLP: 336.14 mGy centimeter. FINDINGS: Limited by patient's motion artifact. LUNG BASES: There is a 6 mm lobulated pulmonary groundglass nodule, left lung base. LIVER, GALLBLADDER, AND BILIARY TREE: Liver measures 13 cm. There is a nodular surface. No gross enhancing mass. The main portal veins and hepatic veins are patent. Gallbladder is fluid-filled without pericholecystic fluid collection or gallbladder wall thickening. No intrahepatic or extrahepatic biliary ductal dilatation. PANCREAS: No focal enhancing lesion. There is a 4 mm low density in the head of the pancreas. No peripancreatic fluid collection. No main pancreatic ductal dilatation. SPLEEN: 9 cm. No focal mass. ADRENAL GLANDS: No nodular lesions. KIDNEYS AND URETERS: No hydronephrosis. There is a patchy decreased enhancement pattern with renal cortical defect involving the posterior upper pole midportion of the left kidney, new since 2022. There are a few scattered cystic lesions in the right kidney. There is a cortical defect in the midportion of the right kidney. BLADDER: Fluid-filled. GASTROINTESTINAL TRACT: Abundant stool throughout the large intestine. Scattered diverticula in the left hemicolon. Multiple gas filled mildly prominent small bowel loops. There is no gross intestinal obstruction pattern. No pneumatosis intestinalis. No pneumoperitoneum. No ascites. Appendix is normal. No peripheral enhancing fluid collection in the peritoneal cavity. There is protrusion of the rectum below the pelvic floor/perineum.. ABDOMINAL WALL: No gross umbilical hernia. LYMPH NODES: No mesenteric or retroperitoneal lymphadenopathy. VASCULAR: Mixed plaques throughout the descending thoracic aorta abdominal aorta and iliac arteries. No aneurysm or dissection abdominal aorta. Calcified plaques in the coronary arteries. PELVIC VISCERA: Heterogeneous appearance of the small uterus with prominent pelvic vessels. OSSEOUS STRUCTURES: There is an old wedge-shaped compression deformity representing 40% volume loss at T11. Multilevel thoracolumbar spondylosis pronounced at L4-5 and L5-S1 and to a lesser extent L2-3 and L3-4 levels. Grade 1 anterolisthesis L3-4. Grade 1 retrolisthesis L5-S1. S-shaped curvature of the thoracolumbar spine with a levoconvex curvature apex at L3. There is a transfemoral head neck screw and intramedullary hope in the left femur, new since prior exam. Osteopenia versus osteoporosis. CT/CT abdomen pelvis w IV con IMPRESSION: New irregular decreased enhancement pattern abnormality with volume loss involving the posterior upper pole midportion left kidney. The possibility of a inflammatory versus infectious process cannot be excluded. Malignancy cannot be excluded. Diverticular disease without acute diverticulitis, left hemicolon. Mild enteritis without intestinal obstruction pattern. Questionable rectal prolapse. Fleischner guidelines were followed. Electronically signed by: Roberto Moore MD 03/14/2025 02:18 PM EDT
--- NOTE | ~2025-03-14 | XR_ITS ---
EXAMINATION: XR CHEST CLINICAL INFORMATION: sob COMPARISON: None available. TECHNIQUE: Frontal view of the chest was obtained. FINDINGS: The cardiac, hilar, and mediastinal contours are normal. The lungs are somewhat hyperaerated however clear bilaterally. Left apical granulomata suspected. No pneumothorax or effusion. No focal osseous or soft tissue abnormality. There are shoulder joint and spinal degenerative changes. XR/XR chest 1V IMPRESSION: No active pulmonary disease. Electronically signed by: Michael Benavides MD 03/14/2025 10:38 AM EDT
--- NOTE | ~2025-03-14 | CT_ITS ---
EXAMINATION: CT HEAD WITHOUT IV CONTRAST HISTORY: headache. TECHNIQUE: Unenhanced helical CT of the head was performed per standard departmental protocol. Coronal and sagittal reformats of the head were also evaluated. One or more of the following techniques was used for dose reduction: Automated exposure control, adjustment of the mA and/or kV according to patient size, use of iterative reconstruction technique. DLP: 651 mGy-cm COMPARISON: Comparison is made with the prior examination dated 02/12/2024. FINDINGS: BRAIN: There is diffuse prominence of the ventricular system and cortical sulci, consistent with atrophy. Periventricular and subcortical white matter hypodensities are noted which are nonspecific, but often seen in the setting of small vessel ischemic disease. Again seen is a small left parietal subdural hygroma versus dural thickening. There is no evidence of acute intracranial hemorrhage. There is no mass effect or midline shift. SINUSES: The visualized paranasal sinuses are clear. The mastoid air cells and middle ear cavities are well pneumatized. ORBITS: The visualized orbits are unremarkable. BONES/SOFT TISSUES: The extracranial soft tissues are unremarkable. The patient is status post left frontal craniotomy. No suspicious lytic or sclerotic lesions. CT/CT head/brain wo IV con IMPRESSION: Stable small left parietal subdural hygroma versus dural thickening. No acute intracranial abnormality. Electronically signed by: Davin Ybarra MD 03/14/2025 12:47 PM EDT
--- NOTE | ~2025-03-14 | CT_ITS ---
EXAMINATION: CT CERVICAL SPINE WITHOUT IV CONTRAST HISTORY: neck pain. TECHNIQUE: Helical CT of the cervical spine was performed per standard departmental protocol. Coronal and sagittal reformatted images were also evaluated. One or more of the following techniques was used for dose reduction: Automated exposure control, adjustment of the mA and/or kV according to patient size, use of iterative reconstruction technique. DLP: 492 mGy-cm COMPARISON: Comparison is made with the prior examination dated 02/12/2024. FINDINGS: CERVICAL SPINE: The vertebral bodies maintain normal height and alignment without evidence of fracture or subluxation. There is diffuse severe degenerative disc disease with disc space narrowing and osteophyte formation. There is diffuse facet osteoarthritis and uncovertebral joint hypertrophy causing bilateral neural foraminal stenosis. Evaluation for disc pathology is limited by lack of intrathecal contrast material, however. BRAIN: The visualized portion of the brain is unremarkable. SINUSES: The visualized paranasal sinuses, mastoid air cells and middle ear cavities are unremarkable. LUNG APICES: The visualized lung apices are clear. SOFT TISSUES: There is calcification of the internal carotid arteries. CT/CT cervical spine wo IV con IMPRESSION: No evidence of fracture or malalignment of the cervical spine. Degenerative changes as described. Electronically signed by: Davin Ybarra MD 03/14/2025 12:52 PM EDT
--- NOTE | ~2025-03-14 | CT_ITS ---
EXAMINATION: CT ANGIOGRAM CHEST CLINICAL INFORMATION: Shortness of breath COMPARISON: None available. TECHNIQUE: Multiple axial images were obtained through the chest after the administration of 65 mL of Omnipaque 350 intravenous contrast. Extensive vascular post-processing including two-dimensional and three-dimensional reformatted images were created and reviewed on an independent workstation. This CT examination was performed using dose optimization techniques as appropriate, variously including the following: *Automated exposure control *Adjustment of mA and/or kV according to patient size (this includes techniques or standardized protocols for targeted exams where dose is matched to indication/reason for exam; i.e. extremities or head) *Use of iterative reconstruction technique DLP: 176 mGY*cm FINDINGS: QUALITY OF STUDY/CONTRAST BOLUS: Adequate PULMONARY ARTERIES: No filling defects are identified in the pulmonary arteries. THORACIC AORTA: Multifocal vascular calcifications are present in the aorta. LUNGS AND PLEURA: There is a solid nodule in the posterior base of the left lower lobe measuring 6 x 8 mm. Pleural-based nodule measuring 6 mm is present in the posterior right apex. Just caudal to the aforementioned nodule, there is a partially calcified nodule contacting pleura in the posterior right upper lobe that measures 4 x 5 mm. Nodularity is also present along the posterior pleura of the left apex and superior aspect of the left major fissure. MEDIASTINUM: No adenopathy or other abnormalities. CORONARY ARTERY CALCIFICATION: None identified CHEST WALL/AXILLA: No axillary or internal mammary lymphadenopathy. UPPER ABDOMEN: Renal cortical scarring is evident involving the left kidney. BONES: Moderate and severe degenerative changes are present in the thoracic spine. There is chronic superior endplate compression fracture involving T11. 9 mm sclerotic lesion in the left transverse process at T6 is consistent with a benign bone island. CT/CT angio chest PE protocol IMPRESSION: No evidence of pulmonary embolus or acute pleural-parenchymal disease. There are multiple pleural-based nodules and a 6 x 8 mm solid pulmonary nodule in the posterior base of the left lower lobe. Fleischner Society recommendation is for CT at 3-6 months, and then consider CT at 18-24 months unless patient is high risk in which case second CT is recommended rather than listed as optional. Moderate degenerative disc disease. Electronically signed by: Keenan Khanna MD 03/14/2025 02:23 PM EDT
[2025-03-14 10:08] VITALS: BP 146/56; PULSE 60; RESP 20; TEMP 36.7; O2SAT 100; BMI 19.2
--- NOTE | 2025-03-14 10:14 | ECG_ITS ---
Test Reason : SOB Blood Pressure : */* mmHG Vent. Rate : 60 BPM Atrial Rate : 60 BPM P-R Int : 156 ms QRS Dur : 76 ms QT Int : 432 ms P-R-T Axes : 80 -4 12 degrees QTcB Int : 432 ms Normal sinus rhythm Nonspecific ST and T wave abnormality Abnormal ECG When compared with ECG of 04-Jul-2023 18:17, Nonspecific T wave abnormality now evident in Anterior leads Referred By: Liz Young Electronically Signed By: Emery Clay
--- NOTE | 2025-03-14 10:40 | PC.NURSE ---
Pt reports posterior neck pain, atraumatic per pt; pt reports SOB and dizziness; denies CP at this time; neuros intact; vss; IV access established
--- NOTE | 2025-03-14 10:54 | ED.GENADULT ---
HPI - General Adult General Chief complaint: Neck Pain/Injury Stated complaint: neck pain Time Seen by Provider: 03/14/25 10:02 Source: patient and EMS Mode of arrival: EMS Limitations: other (Dementia) History of Present Illness ED Provider: YASMIN Young HPI narrative: This is a very pleasant 84-year-old female past medical history significant for hyperlipidemia, hypertension, subdural hematoma status post decompression/craniotomy in 2022 presenting to the emergency department with multiple complaints. Patient reports in neck pain that is intermittent in nature worse with movement and better at rest she reports it is in the posterior, anterior and lateral aspects of her neck. She also reports intermittent posterior headaches ever since she had her craniotomy. This morning when she woke up she also noted that she was short of breath and having difficulty taking a full deep breath. She tells me she is anxious however not sure why. At this time she denies chest pain, fevers, chills, nausea, vomiting, abdominal pain, vision changes, dizziness, weakness. She tells me she just has not been feeling right for the past few days. She is not on blood thinners. No recent falls or trauma. Family member at the bedside helps me with history. Related Data Home Medications ?Medication ?Instructions ?Recorded ?Confirmed amlodipine 5 mg tablet 5 mg PO DAILY 04/22/23 04/22/23 atorvastatin 20 mg tablet 20 mg PO DAILY 04/22/23 04/22/23 ferrous sulfate 325 mg (65 mg 325 mg PO BID 04/22/23 04/22/23 iron) tablet magnesium oxide 400 mg (241.3 mg 400 mg PO DAILY 04/22/23 04/22/23 magnesium) tablet multivitamin 1 tab PO DAILY 04/22/23 04/22/23 Previous Rx's ?Medication ?Instructions ?Recorded dicyclomine 10 mg capsule 10 mg PO TID #20 caps 07/04/23 gabapentin 100 mg capsule 100 mg PO TID #30 caps 03/14/25 Allergies Allergy/AdvReac Type Severity Reaction Status Date / Time No Known Allergies Allergy Verified 03/14/25 10:10 Review of Systems Review of Systems: Yes all other systems are reviewed and are negative PMFSH Past Medical History Attestation statement: The following information was validated with the patient. Source: old records reviewed and nursing notes reviewed Medical History HLD (hyperlipidemia) HTN (hypertension) Social History Social History Household Members: None Housing: House Alcohol intake: current Alcohol intake frequency: 3 or more drinks per day Alcohol type: wine Patient Tobacco Use Status: Never used Tobacco Smoked in Last 30 Days: No Use of substances other than those prescribed or required for medical reasons: No Advance Directives: No Advance Directives Information Provided: Yes Do you have a plan to hurt others: No Plan Physical Exam ED Exam Exam: Appearance: Alert.? Oriented X3.? No acute distress.?+ patient is noted to have shallow small respirations. Head: Normocephalic, atraumatic, no step-offs or deformities Eyes: Pupils equal, round and reactive to light.? ENT: Pharynx normal.? Neck: Normal inspection.? Neck supple.? Negative Kernig and Brudzinski. Patient does have bilateral paraspinous muscle tenderness to palpation on exam in the cervical region. Also slight discomfort with palpation in the right trapezius region. CVS: Normal heart rate and rhythm.? Pulses normal.? Respiratory: No respiratory distress.? Breath sounds normal.? Abdomen: Soft and nontender.? Skin: Skin warm and dry.? Normal skin color.? Normal skin turgor.? Extremities: No lower extremity edema.? No calf ttp. Global weakness noted Back: No midline tenderness, no C-spine tenderness, full range of motion, no CVA tenderness bilaterally Neuro: Oriented X 3.? No motor deficit.? No sensory deficit. CN 2-12 intact . Normal [id number]. Negative Romberg. Vital Signs: Vital Signs - 24 hr 03/14/25 10:08 03/14/25 12:09 03/14/25 14:19 Temperature 98.0 F 98.3 F 97.3 F Pulse Rate 60 72 70 Respiratory Rate 20 17 14 Blood Pressure 146/56 H 164/48 H 165/84 H Pulse Oximetry 100 96 96 Oxygen Delivery Method Room Air Room Air Room Air 03/14/25 17:30 03/14/25 17:31 Temperature 97.3 F 97.3 F Pulse Rate 66 66 Respiratory Rate 14 14 Blood Pressure 148/68 H 148/68 H Pulse Oximetry 94 94 Oxygen Delivery Method Room Air Room Air BMI result Body Mass Index 19.2 vss Course Reevaluation(s) Reevaluation #1: CBC with no acute findings needing intervention. Chemistry unremarkable. Troponin 3.9, EKG nonischemic. D-dimer mildly elevated will order CTA as patient does appear to be tachypneic with shallow respirations. Total bilirubin 1.1 slightly higher than her baseline no abdominal tenderness on exam however will scan her abdomen. Patient's CRP nonspecific however elevated at 9.05. Blood gas with alkalosis 7.51 PH. UA without infection. Flu, COVID negative. Time: 12:00 Reevaluation #2: Patient reports no improvement with diazepam and Lidoderm patch. Oral morphine and Zofran will be given for pain control. Time: 12:14 Reevaluation #3: CTA of the chest no evidence of pulmonary embolus or acute pleural parenchymal disease. Multiple pleural-based nodule 6 x 8 mm solid pulmonary nodule in the posterior base of the left lobe. Recommend follow-up CT. Patient will be discharged with CT results. CT abdomen pelvis with new irregularly decreased enhancement pattern with volume loss of the posterior upper midportion of the left kidney the possibility of an inflammation versus infection process can not be excluded. Based off patient physical exam, laboratory studies I do not suspect infection. Malignancy also can not be excluded. Diverticular disease without acute diverticulitis is noted. Mild enteritis without intestinal obstruction. Question rectal prolapse. Patient's head CT with stable small left parietal subdural hygroma versus dural thickening. No acute intracranial abnormality. CT of the cervical spine with no evidence of fracture malalignment of the cervical spine degenerative changes noted. Repeat troponin pending Time: 14:42 Additional Reevaluation(s): 1531Patient is still quite uncomfortable. I did have my attending Dr. Hi evaluate patient who recommends IV Toradol and Tylenol and re-evaluation. Second troponin is also negative with a nonischemic EKG. 1641: Patient was evaluated by my attending who feels like she is safe for discharge home. Will discharge her on gabapentin for possible cervical radiculopathy. She is feeling much better walking up and down the halls of the department. Educated patient on diagnosis and treatment plan, answered all question, patient verbalizes understanding. At this time patient will be discharged home, advised to return with new or worsening symptoms. Educated on worrisome signs and symptoms and when to return. At this time I feel comfortable discharge home. Consultations Consultation #1: Dr. Hi: I saw this patient with physician printer floor covering assistant. The patient is an 84-year-old woman who was brought to the emergency room by her family primarily for a complaint of neck pain. She seems to have very frequent headaches and though she complains somewhat of a headache as well it was the neck pain that was the new symptom today. She initially looked uncomfortable but not toxic. She had an extensive workup with multiple CT scans which are unremarkable. Her white count and differential unremarkable although she has a mildly elevated C-reactive protein. She has an age adjusted normal D-dimer. She does not seem to have any focal neurological deficits. Mental status seems very clear. My suspicion for subarachnoid hemorrhage or a vertebral artery dissection is quite low. She was treated symptomatically with a dose of ketorolac IV and acetaminophen IV. Following the administration these medications the patient seemed to feel much much better and she looked much much better. She was able to walk without difficulty and had a completely reassuring demeanor. Given this improvement with simple medications and given the extensive workup she had which was unremarkable think she may be discharged for symptomatic treatment at home. She should return if worse. Follow-up with her PCP. Medications Administered Discontinued Medications Generic Name Dose Route Start Last Admin Trade Name Stephanie PRN Reason Stop Dose Admin Diazepam 2.5 mg 03/14/25 11:04 03/14/25 11:26 Diazepam 10 Mg/2 Ml Cartridge IVPUSH 03/14/25 11:05 2.5 mg STAT STA Administration Diazepam 2.5 mg 03/14/25 14:43 03/14/25 15:06 Diazepam 10 Mg/2 Ml Cartridge IVPUSH 03/14/25 14:44 Not Given STAT STA Acetaminophen 1,000 mg in 100 mls @ 400 mls/hr 03/14/25 15:02 03/14/25 15:34 Ofirmev IV 03/14/25 15:16 Infused ONCE ONE Infusion Iohexol 100 ml 03/14/25 13:21 03/14/25 13:21 Iohexol 350 Mg/Ml 100 Ml Infus..Btl IV 03/14/25 13:22 65 ml ONCE ONE Administration Iohexol 100 ml 03/14/25 13:52 03/14/25 13:52 Iohexol 350 Mg/Ml 100 Ml Infus..Btl IV 03/14/25 13:53 65 ml ONCE ONE Administration Ketorolac Tromethamine 10 mg 03/14/25 15:02 03/14/25 15:07 Ketorolac Tromethamine 15 Mg/Ml Vial IVPUSH 03/14/25 15:03 10 mg ONCE ONE Administration Lidocaine 1 patch 03/14/25 11:04 03/14/25 11:26 Lidocaine 4 % Patch Adh..Patch TRANSDERMA 03/14/25 11:05 1 patch ONCE ONE Administration Protocol Morphine Sulfate 15 mg 03/14/25 12:11 03/14/25 12:18 Morphine Sulfate Immed Release 15 Mg Tablet PO 03/14/25 12:12 15 mg ONCE ONE Administration Ondansetron HCl 4 mg 03/14/25 12:11 03/14/25 12:18 Ondansetron Odt 4 Mg Tab.Rapdis TRANSLINGU 03/14/25 12:12 4 mg ONCE ONE Administration Medical Decision Making Medical Decision Making [facility] Narrative: 1102 This is an 84-year-old female presenting with multiple complaints for the past few days. Patient reports atraumatic neck pain and right trapezius pain PE- patient w/ shallow respirations. Appears anxious Hx and PE concerning for torticollis/cervical muscle spasms I do not suspect meningitis or encephalitis. Unlikely carotid dissection. I do not suspect intracranial hemorrhage, stroke, subarachnoid. Headache likely post craniotomy headache although it is over a year out. I will rule out DVT as well as cardiac etiologies although I do not suspect acute coronary syndrome. No signs of acute respiratory distress at this time. Only tachypneic. Will obtain labs and rule out anemia and electrolyte abnormalities Plan labs, imaging, urine Differential Diagnosis Differential Diagnoses: The differential diagnosis associated with the presentation includes (Hx and PE concerning for torticollis/cervical muscle spasms I do not suspect meningitis or encephalitis. Unlikely carotid dissection. I do not suspect intracranial hemorrhage, stroke, subarachnoid. Headache likely post craniotomy headache although it is over a year out. I will rule out DVT as we) Admission/Observation Consideration of admission/observation: Escalation of care including admission/observation considered Lab Data MDM Lab Attestation statement: I reviewed the patient's lab results. 03/14/25 10:57 03/14/25 10:57 Labs: Lab Results 03/14/25 03/14/25 03/14/25 Range/Units 10:57 11:30 11:55 WBC 10.2 (4.8-10.8) X10*3/uL RBC 3.97 L (4.20-5.50) X10*6/uL Hgb 13.4 (12.0-16.0) g/dl Hct 37.4 (37.0-47.0) % MCV 94.2 (80.0-98.0) fL MCH 33.8 H (27.0-33.0) pg MCHC 35.8 H (31.0-35.0) g/dl RDW 12.5 (11.0-16.0) % Plt Count 316 (160-400) X10*3/uL MPV 9.8 (9.4-12.3) fL Immature Gran % (Auto) 0.4 (0.0-0.4) % Neut % (Auto) 66.3 (45-73) % Lymph % (Auto) 22.9 (20-40) % Amelia % (Auto) 9.4 (2-11) % Eos % (Auto) 0.5 (0-4) % Baso % (Auto) 0.5 (0-2) % Lymph # (Auto) 2.3 (1.2-4.9) X10*3/uL Amelia # (Auto) 1.0 (0.1-1.2) X10*3/uL Eos # (Auto) 0.1 (0.0-0.4) X10*3/uL Baso # (Auto) 0.1 (0.0-0.2) X10*3/uL Abs Immat Gran (auto) 0.04 H (0.00-0.03) X10*3/uL Absolute Neuts (auto) 6.8 (2.0-8.3) x10*3/uL Absolute Nucleated RBC 0.000 (0.0-0.012) X10*3/uL Nucleated RBC % (auto) 0.0 (0.0-0.2) /100WBC ESR 33 H (0-20) MM/HR D-Dimer High Sensitivty 287 NG/ML VBG pH 7.51 H (7.32-7.43) VBG pCO2 28 mmHg VBG pO2 39 mmHg VBG HCO3 23 (22-26) mmol/L VBG O2 Saturation 63.0 % VBG Base Excess 1.6 mmol/L Sodium 138 (135-145) mmol/L Potassium 3.5 (3.3-5.1) mmol/L Chloride 106 (96-108) mmol/L Carbon Dioxide 21 L (22-29) mmol/L Anion Gap 15 (12-20) BUN 16 (9-16) mg/dL Creatinine 0.61 (0.5-1.4) mg/dL Estim Creat Clear Calc 58.7 Estimated GFR > 60 Random Glucose 83 (60-115) mg/dL Calcium 10.1 (8.4-10.2) mg/dL Magnesium 2.2 (1.6-2.6) mg/dL Total Bilirubin 1.1 H (0.0-1.0) mg/dL AST 49 H (5-31) U/L ALT 65 H (0-31) U/L Alkaline Phosphatase 105 (39-117) U/L Troponin I High Sens 3.9 (<3.5-17.0) ng/L C-Reactive Protein 9.05 H (< or = 0.50) mg/dL Total Protein 7.5 (6.5-8.0) g/dL Albumin 4.5 (3.5-5.0) g/dL Urine Color Yellow Urine Appearance Clear Urine pH 8.0 (5.0-9.0) Ur Specific [place] 1.015 (1.005-1.025) Urine Protein Negative (Neg-Trace) mg/dL Urine Glucose (UA) Negative (Negative) mg/dL Urine Ketones 15 (Negative) mg/dL Urine Blood Negative (Negative) Urine Nitrite Negative (Negative) Ur Leukocyte Esterase Negative (Negative) COVID-19 (MELANY) Negative (Negative) COVID-19 Clin Com See Note Influenza Type A (LADAN) Negative (Negative) Influenza Type B (LADAN) Negative (Negative) Influenza A & B Note See Note 03/14/25 Range/Units 14:08 WBC (4.8-10.8) X10*3/uL RBC (4.20-5.50) X10*6/uL Hgb (12.0-16.0) g/dl Hct (37.0-47.0) % MCV (80.0-98.0) fL MCH (27.0-33.0) pg MCHC (31.0-35.0) g/dl RDW (11.0-16.0) % Plt Count (160-400) X10*3/uL MPV (9.4-12.3) fL Immature Gran % (Auto) (0.0-0.4) % Neut % (Auto) (45-73) % Lymph % (Auto) (20-40) % Amelia % (Auto) (2-11) % Eos % (Auto) (0-4) % Baso % (Auto) (0-2) % Lymph # (Auto) (1.2-4.9) X10*3/uL Amelia # (Auto) (0.1-1.2) X10*3/uL Eos # (Auto) (0.0-0.4) X10*3/uL Baso # (Auto) (0.0-0.2) X10*3/uL Abs Immat Gran (auto) (0.00-0.03) X10*3/uL Absolute Neuts (auto) (2.0-8.3) x10*3/uL Absolute Nucleated RBC (0.0-0.012) X10*3/uL Nucleated RBC % (auto) (0.0-0.2) /100WBC ESR (0-20) MM/HR D-Dimer High Sensitivty NG/ML VBG pH (7.32-7.43) VBG pCO2 mmHg VBG pO2 mmHg VBG HCO3 (22-26) mmol/L VBG O2 Saturation % VBG Base Excess mmol/L Sodium (135-145) mmol/L Potassium (3.3-5.1) mmol/L Chloride (96-108) mmol/L Carbon Dioxide (22-29) mmol/L Anion Gap (12-20) BUN (9-16) mg/dL Creatinine (0.5-1.4) mg/dL Estim Creat Clear Calc Estimated GFR Random Glucose (60-115) mg/dL Calcium (8.4-10.2) mg/dL Magnesium (1.6-2.6) mg/dL Total Bilirubin (0.0-1.0) mg/dL AST (5-31) U/L ALT (0-31) U/L Alkaline Phosphatase (39-117) U/L Troponin I High Sens 4.7 (<3.5-17.0) ng/L C-Reactive Protein (< or = 0.50) mg/dL Total Protein (6.5-8.0) g/dL Albumin (3.5-5.0) g/dL Urine Color Urine Appearance Urine pH (5.0-9.0) Ur Specific [place] (1.005-1.025) Urine Protein (Neg-Trace) mg/dL Urine Glucose (UA) (Negative) mg/dL Urine Ketones (Negative) mg/dL Urine Blood (Negative) Urine Nitrite (Negative) Ur Leukocyte Esterase (Negative) COVID-19 (MELANY) (Negative) COVID-19 Clin Com Influenza Type A (LADAN) (Negative) Influenza Type B (LADAN) (Negative) Influenza A & B Note Independent Interpretation I performed an independent interpretation of an: EKG (Normal sinus rhythm Nonspecific ST and T wave abnormality Abnormal ECG When compared with ECG of 04-Jul-2023 18:17, Nonspecific T wave abnormality now evident in Anterior leads) and Plain X-Ray Critical Care Time Critical Care Time Critical Care Time: Yes Total Critical Care Time: 35 Attestation: I attest to this time spent taking care of the patient, obtaining history, physical, reviewing labs, imaging, treatment of patients condition +/- specialist/hospitalist consult +/- procedure Discharge Plan Discharge Clinical Impression: Cervical radiculopathy, Torticollis, Shortness of breath Patient Disposition: Home, Self-Care Instructions: Cervical Radiculopathy (ED), Neck Pain (ED) Additional Instructions: Take your medications as prescribed. If you were prescribed antibiotics today, it is important that you take your medication to their entirety, do not skip any doses, do not finish them early. Follow-up with your primary care provider this week. Return to the emergency department with new or worsening symptoms. Such as fevers, chills, chest pain, shortness of breath, nausea, vomiting, dizziness, headache, vision changes, lethargy In case of emergency call 911 A narcotic has been sent to your pharmacy please take this as prescribed. Do not take more than the prescribed dose. Narcotic medications can cause addiction. Please do not mix them with alcohol. Do not take them while driving or operating machinery. Do not take them with any other narcotics. Do not share them with friends or family. They can cause constipation. Take them only for severe pain. CT/CT angio chest PE protocol IMPRESSION: No evidence of pulmonary embolus or acute pleural-parenchymal disease. There are multiple pleural-based nodules and a 6 x 8 mm solid pulmonary nodule in the posterior base of the left lower lobe. Fleischner Society recommendation is for CT at 3-6 months, and then consider CT at 18-24 months unless patient is high risk in which case second CT is recommended rather than listed as optional. Moderate degenerative disc disease. CT/CT abdomen pelvis w IV con IMPRESSION: New irregular decreased enhancement pattern abnormality with volume loss involving the posterior upper pole midportion left kidney. The possibility of a inflammatory versus infectious process cannot be excluded. Malignancy cannot be excluded. Diverticular disease without acute diverticulitis, left hemicolon. Mild enteritis without intestinal obstruction pattern. Questionable rectal prolapse. Fleischner guidelines were followed. CT/CT abdomen pelvis w IV con IMPRESSION: New irregular decreased enhancement pattern abnormality with volume loss involving the posterior upper pole midportion left kidney. The possibility of a inflammatory versus infectious process cannot be excluded. Malignancy cannot be excluded. Diverticular disease without acute diverticulitis, left hemicolon. Mild enteritis without intestinal obstruction pattern. Questionable rectal prolapse. Fleischner guidelines were followed. CT/CT cervical spine wo IV con IMPRESSION: No evidence of fracture or malalignment of the cervical spine. Degenerative changes as described. Prescriptions: New gabapentin 100 mg capsule 100 mg PO TID Qty: 30 0RF No Action multivitamin Tablet 1 tab PO DAILY atorvastatin 20 mg tablet 20 mg PO DAILY amlodipine 5 mg tablet 5 mg PO DAILY magnesium oxide 400 mg (241.3 mg magnesium) tablet 400 mg PO DAILY ferrous sulfate 325 mg (65 mg iron) tablet 325 mg PO BID dicyclomine 10 mg capsule 10 mg PO TID Qty: 20 0RF Referrals: [facility] – [place], [place] [facility] [Provider Group, Nephrology] Landen Alonso MD [Primary Care Provider, Internal Medicine] Interventions: ED Discharge Assessment Last Done: 03/14/25 17:31 Discharge Date/Time: 03/14/25 17:33 Print Language: Norwegian
[2025-03-14 11:12] LABS: MANUAL DIFF FLAG NO
[2025-03-14 11:17] LABS: Hematocrit 37.4 % (37.0-47.0); Hemoglobin 13.4 g/dl (12.0-16.0); Imm Gran Abs Auto 0.04 X10*3/uL (0.00-0.03); Imm Gran Pct Auto 0.4 % (0.0-0.4); Lymphocytes Absolute Auto 2.3 X10*3/uL (1.2-4.9); Mean Corpuscular HGB Conc 35.8 g/dl (31.0-35.0); Mean Corpuscular Hemoglobin 33.8 pg (27.0-33.0); Mean Corpuscular Volume 94.2 fL (80.0-98.0); NRBC Abs Auto 0.000 X10*3/uL (0.0-0.012); NRBC Pct Auto 0.0 /100WBC (0.0-0.2); Platelet Count 316 X10*3/uL (160-400); Red Blood Count 3.97 X10*6/uL (4.20-5.50); White Blood Count 10.2 X10*3/uL (4.8-10.8)
[2025-03-14 11:23] LABS: D Dimer High Sensitivity 287 NG/ML
[2025-03-14] MEDS: diazePAM 10 MG/2 ML CARTRIDGE 2.5 MG IVPUSH (11:26)
[2025-03-14] MEDS: Lidocaine 4 % Patch ADH..PATCH 1 PATCH TRANSDERMA (11:26)
[2025-03-14 11:31] LABS: Alanine Aminotransferase 65 U/L (0-31); Albumin Level 4.5 g/dL (3.5-5.0); Alkaline Phosphatase 105 U/L (39-117); Anion Gap 15 (12-20); Aspartate Amino Transferase 49 U/L (5-31); Blood Urea Nitrogen 16 mg/dL (9-16); Calcium 10.1 mg/dL (8.4-10.2); Carbon Dioxide 21 mmol/L (22-29); Chloride 106 mmol/L (96-108); Creatinine Clr Calc Pharmacy 58.7; Estimated Glomerular Filt Rate > 60; Magnesium 2.2 mg/dL (1.6-2.6); Potassium 3.5 mmol/L (3.3-5.1); Sodium 138 mmol/L (135-145); Total Protein 7.5 g/dL (6.5-8.0)
[2025-03-14 11:37] LABS: Troponin-I High Sensitivity 3.9 ng/L (<3.5-17.0)
[2025-03-14 11:40] LABS: IDNOW Serial# 55D5AD1C; Influenza B2 Negative (Negative)
[2025-03-14 11:41] LABS: Appearance Urine Clear; Glucose Urine UA Negative (Negative); PH 8.0 (5.0-9.0); Specific Gravity - Urine 1.015 (1.005-1.025)
[2025-03-14 11:41] LABS: COVID-19 Test Negative (Negative); IDNOW Serial# 58CA691E
[2025-03-14 11:59] LABS: VBG HCO3 23 mmol/L (22-26); VBG O2 % Saturation 63.0 %
[2025-03-14 12:00] LABS: Venous Blood Gas Refer to POC result
[2025-03-14 12:09] VITALS: BP 164/48; PULSE 72; RESP 17; TEMP 36.8; O2SAT 96
--- OUTSIDE RECORDS SUMMARY | 2025-03-14 12:13 | XMS_ITS ---
Author Name [facility] Organization Unknown Care Team Organization Name Specialty Phone Email Start Date End Da te [facility] Dominik Rothman Primary Care 06/21/202302/07 [facility] Landen Alonso Primary Care 05/17/20222023
--- OUTSIDE RECORDS SUMMARY | 2025-03-14 12:13 | XMS_ITS | Clinical Summary ---
Author Organization [facility] [address] [facility] Building Address [address] [facility] [place] [address] Phone Care Team Providers Care Computer Game Tester Name Role Phone Landen Alonso MD Primary Care Provider [phone] Allergies No known active allergies Medications ferrous sulfate 325 mg (65 mg elemental iron) tablet TAKE 1 TABLET BY MOUTH TWICE A DAY *OTC NOT COVERED 08/30/19 24 Active calcium carbonate/vitam in D3 (CALCIUM+D ORAL) Take 1 Tab by mouth daily. Active MULTIVITAMIN ORAL Take 1 Tab by mouth daily. Active atorvastatin (LIPITOR) 20 mg tablet TAKE 1 TABLET BY MOUTH EVERY DAY 30 tablet 5 12/04/19 25 Active acetylcyst-meco dfk-V-mthskcfb (Cerefolin Brain Wellness) 600-2-6 mg tablet Take 1 tablet by mouth 1 (one) time each day. 90 each 12/18/19 25 Active ascorbic acid (VITAMIN C) 500 mg tablet Take 1 tablet (500 mg total) by mouth 1 (one) time each day. Active donepeziL (ARICEPT) 5 mg tablet Take 1 tablet (5 mg total) by mouth at bedtime. 90 each 02/19/20 25 026 Active hydroCHLOROthia zide (HYDRODIURIL) 25 mg tabletIndicatio ns:Essential (primary) hypertension Take 1 tablet (25 mg total) by mouth 1 (one) time each day. 90 each 1 02/19/20 25 026 Active potassium chloride (KLOR-CON M10) 10 mEq CR tablet TAKE 1 TABLET BY MOUTH 1 TIME EACH DAY. 90 tablet 1 02/22/20 25 Active lisinopriL (PRINIVIL,ZESTR IL) 5 mg tabletIndicatio ns:hypertension Take 1 tablet (5 mg total) by mouth 1 (one) time each day. 90 tablet 1 10/05/19 25 025 Discontinued hydroCHLOROthia zide (HYDRODIURIL) 25 mg tabletIndicatio ns:Essential (primary) hypertension Take 1 tablet (25 mg total) by mouth 1 (one) time each day. 30 tablet 2 12/18/19 25 025 Discontinued(R eorder) potassium chloride (KLOR-CON M10) 10 mEq CR tablet Take 1 tablet (10 mEq total) by mouth 1 (one) time each day. 30 tablet 1 12/18/19 25 025 Discontinued fluticasone propionate (FLONASE) 50 mcg/actuation nasal spray Administer 2 sprays into each nostril 1 (one) time each day. Shake gently. Before first use, prime pump. After use, clean tip and replace cap. 16 g 5 12/18/19 25 025 Discontinued Active Problems Problem Noted Date Diagnosed Date Hypokalemia 08/29/2023 Microscopic hematuria 01/21/2016 HLD (hyperlipidemia) 12/23/2015 Overview (04/12/2024): Refused statin, dietary changes made, recheck lipids in 6 months Anemia 07/08/2014 Lung mass 05/14/2009 Overview (04/12/2024): 05/13/09,repeat in 6mths and than 18mths recommended 09/16-Stable lung nodules. Additional followup CT is recommended in 12 - 18 months. 11/17-Benign left basilar pulmonary nodules, stable over 18 months. This fulfills Fleischner Society criteria for followup Carpal tunnel syndrome 09/07/2006 Overview (04/12/2024): used to wear splint but declines now Essential hypertension, benign 09/05/2005 Overview (04/12/2024): 09/21/06:A negative exercise tolerance test with no chest discomfort or EKG changes of ischemia at an 11.6 MET workload and at 100% of the predicted maximal heart rate. Resolved Problems Problem Noted Date Diagnosed Date Resolved Date Osteoporosis 03/22/2013 04/12/2024 Overview (04/12/2024): 03/22-declines fosamax 11/23- declines Fosamax Encounters Date Type Department Care Team Description 03/14/2025 [facility] [place] [address] Landen Alonso MD 02/18/2025 11:00 AM EDT Office Visit Internal Medicine - [address] [phone] Dominik Rothman PA Memory loss (Primary Dx); Essential (primary) hypertension; Chronic cough 01/29/2025 [facility] [address] [place] [phone] Landen Alonso MD 01/07/2025 [facility] [phone] Landen Alonso MD 01/01/2025 Telephone Internal Medicine [address] [phone] Landen Alonso MD 12/18/2024 10:15 AM EDT [facility] [place] [address] Mahogany Pastor NP Dizziness (Primary Dx); Right-sided chest pain 12/18/2024 Telephone [facility] [phone] Mahogany Pastor NP 12/17/2024 11:19 AM EDT - 12/17/2024 11:59 PM EDT [facility] [address] [facility] [place] [phone] Chronic cough Discharge Disposition: Home or Self Care 12/17/2024 11:00 AM EDT Office Visit Internal Medicine - [facility] [place] [phone] Dominik Rothman PA Essential (primary) hypertension (Primary Dx); Mixed hyperlipidemia; Memory loss; Subdural hematoma (CMS/HCC V24, CMS/HCC V28); Vitamin D deficiency; Chronic cough from Last 3 Months Immunizations Name Administration Dates Next Due Influenza Quadravalent, 0.5m l (Fluad) 65yo and older 04/27/2021 Influenza Quadravalent, 0.5m l (Fluzone High-dose) 65yo and older 04/06/2020 Influenza trivalent, 0.5mL ( Fluad) 65yo and older 08/07/2017 Influenza trivalent, 0.5mL ( Fluzone High-dose) 65yo and older 05/07/2024,03/24/2022,04/03/2019,04/30 Influenza trivalent, with pr eservative (Fluzone; Afluria) 6mo and older 05/25/2016 Pfizer (ages 12 & older) Biv alent, COVID-19 05/11/2022 Pneumococcal conjugate 13 va lent (Prevnar 13, PCV13) 2mo and older 12/20/2016 Pneumococcal polysaccharide 23 valent (Pneumovax 23) 2yo and older 09/13/2007 RSV, bivalent, protein subun it RSVpreF, 0.5mL, Preservative Free (Arexvy) 60yo and older 06/30/2023 Td Tetanus diptheria (Tdvax) 7yo and older 02/18/2004 Td, Unspecified 02/18/2004 Tdap Tetanus diptheria acell ular pertussis (Boostrix; Adacel) 7yo and older 08/30/2013 Zoster Live 06/24/2008 Zoster recombinant (Shingrix ) 19yo and older 05/06/2019,01/22/2019 Surgical History Surgery Date Site/Laterality Comments COLONOSCOPY 09/10/2004 PROCEDURE: HISTORICAL COLONOSCOPY; COMMENT: normal COLONOSCOPY W/ POLYPECTOMY 12/04/2014 PROCEDURE: WI COLSC FLX W/RMVL OF TUMOR POLYP LESION SNARE TQ; COMMENT: 7 mm cecal polyps x 2: tubular adenomas x 2. OTHER SURGICAL HISTORY 10/21/2022 PROCEDURE: WI TWIST DRILL HOLE EVAC&/DRG SUBDURAL HEMATOMA Medical History Medical History Date Comments History of tobacco abuse 1982 DX:Hist ory of tobacco abuse Osteoporosis DX:Osteoporosis Abnormal mammogram DX:Abnormal m ammogram Subdural hematoma (CMS/HCC V 24, CMS/HCC V28) 10/17/2022 DX:Subdural hematoma (HCC); COMMENT: S/p evacuation on 10/21/2022. History of subdural hematoma 07/19/2023 DX: History of subdural hematoma; COMMENT: W/subsequent chronic memory issues Family History Medical History Relation Name Comments Stroke Father Coronary artery disease Mother Diabetes Mother Hypertension Mother Breast cancer Neg Hx Relation Name Status Comments Father (Age 67) strokes Mother Social History Tobacco Use Types Packs/Day Years Used Date Smoking Tobacco: Former Cigarettes Q uit: 07/10/1982 Smokeless Tobacco: Never Tobacco Cessation:Counseling Given: Not Answered Alcohol Use Standard Drinks/Week Comments Yes 0 (1 standard drink = 0.6 oz pur e alcohol) Comments No Sex and Gender Information Value Date Recorded Sex Assigned at Not on file Legal Sex Female 2:50 PM EST Gender Identity Not on file Sexual Orientation Not on file Obstetrics History Last Filed Vital Signs Vital Sign Reading Time Taken Comments Blood Pressure 104/58 02/18/2025 11:01 AM EDT Pulse 62 02/18/2025 11:01 AM EDT Temperature 36.4 C (97.5 F) 12/18/2024 10:05 AM EDT Respiratory Rate 16 02/18/2025 11:01 AM EDT Oxygen Saturation 94% 12/18/2024 10:05 AM EDT Inhaled Oxygen Concentration - - Weight 51 kg (112 lb 6.4 oz) 02/18/2025 11:01 AM EDT Height 165.1 cm (5' 5 ) 06/27/2024 10:25 AM EST Body Mass Index 18.7 06/27/2024 10:25 AM EST Plan of Treatment Upcoming Encounters Date Type Department Care Team (Late st Contact Info) Description 06/18/2025 11:00 AM EST Office Visit [facility] - [facility] [address] [place], [place] [phone] Dominik Rothman PA [address] [place], [place] 08/21/2025 11:00 AM EST Office Visit Internal Medicine - [address] [phone] Landen Alonso MD [address] [place], [place] Health Maintenance Due Date Last Done Comments Colorectal Cancer Screening: Colonoscopy 06/18/2022 12/04/2014 Falls Risk Assessment 06/18/2022 Social Influencers of Health Screening 06/18/2022 Depression Screening 07/10/2024 10/03/2023 Medicare Annual Wellness Visit 10/02/2024 10/03/2023 COVID-19 Vaccine ( season) 2025 09/25/2023, 05/11/2022, 04/15/2021, Additional history exists Influenza Vaccine (#1) 2025 , 03/24/2022, 04/27/2021, Additional history exists Hypertension/CHF/CAD Annual BMP Blood Test 12/18/2025 12/18/2024, 06/18/2024, 06/11/2024, Additional history exists Cholesterol Screening (Lipid Panel) 12/18/2029 12/18/2024, 08/30/2023 Osteoporosis Screening (Bone Density Screening) 04/28/2032 04/28/2022, 11/23/2016 DTaP,Tdap,and Td Vaccines (5 - Td or Tdap) 06/07/2034 06/07/2024, 08/30/2013, 02/18/2004, Additional history exists Pneumococcal Vaccine: 50+ Years Completed 12/20/2016, 09/13/2007 Zoster Vaccines Completed 05/06/2019, 01/07, 06/24/2008 RSV Immunization Adult Patients Completed 06/30/2023 HIB Vaccines Aged Out No longer eligi ble based on patient's age to complete this topic HPV Vaccines Aged Out No longer eligi ble based on patient's age to complete this topic Hepatitis A Vaccines Aged Out No long er eligible based on patient's age to complete this topic Hepatitis B Vaccines Aged Out No long er eligible based on patient's age to complete this topic IPV Vaccines Aged Out No longer eligi ble based on patient's age to complete this topic MMR Vaccines Aged Out No longer eligi ble based on patient's age to complete this topic Meningococcal ACWY Vaccine Aged Out N o longer eligible based on patient's age to complete this topic Meningococcal B Vaccine Aged Out No l onger eligible based on patient's age to complete this topic RSV Immunization Patients Under 20 months Aged Out No longer eligible based on patient's age to complete this topic Varicella Vaccines Aged Out No longer eligible based on patient's age to complete this topic Procedures Procedure Name Priority Date/Time Associated Diagnosis Comments POC RAPID [id number], MOLECULAR Routine 12/18/2024 2:04 PM EDT Right-sided chest pain LIPID PANEL WITH REFLEX TO DIRECT LDL Routine 12/18/2024 9:19 AM EDT Mixed hyperlipidemia COMPREHENSIVE METABOLIC PANEL Routine 12/18/2024 9:19 AM EDT Mixed hyperlipidemia HOMOCYSTEINE, SERUM Routine 12/18/2024 9 :19 AM EDT Memory loss Subdural hematoma (CMS/HCC V24, CMS/HCC V28) Essential (primary) hypertension METHYLMALONIC ACID, SERUM Routine 12/18/2024 9:19 AM EDT Memory loss Subdural hematoma (CMS/HCC V24, CMS/HCC V28) VITAMIN B1 Routine 12/18/2024 9:19 AM EDT Memory loss Subdural hematoma (CMS/HCC V24, CMS/HCC V28) VITAMIN D 1,25 DIHYDROXY Routine 12/18/2024 9:19 AM EDT Memory loss Subdural hematoma (CMS/HCC V24, CMS/HCC V28) Vitamin D deficiency XR CHEST 2 VIEWS Routine 12/17/2024 11:2 7 AM EDT Chronic cough DEPRESSION SCREENING Routine 10/03/2023 DXA BONE DENSITY STUDY 1+ SITS AXIAL SKEL Routine 04/28/2022 11:11 AM EDT Age-related osteoporosis without current pathological fracture COLONOSCOPY Routine 12/04/2014 from Last 3 Months or Most Recently Relevant to Health Maintenance Results * Poc Rapid [id number], MOLECULAR (12/18/2024 2:04 PM EDT) [facility] COVID-19/SARS- COV-2 Rapid POC Negative Negative Swab Nasopharyngeal structure / Unknown 12/18/2024 2:04 PM EDT Mahogany Pastro NP POINT OF CARE TEST ENTER/EDIT ORDERABLES Final Result * Lipid panel with reflex to direct LDL (12/18/2024 9:19 AM EDT) [facility] Cholesterol 176 0 - 200 mg/dL LAB CHEMISTRY METHOD 12/18/2024 2:10 PM EDT [facility] Triglycerides 92 0 - 150 mg/dL LAB CHEMISTRY METHOD 12/18/2024 2:10 PM EDT [facility] HDL 81 >=40 mg/dL LAB CHEMISTRY METHOD 12/18/2024 2:10 PM EDT [facility] LDL Calculated 77 0 - 100 mg/dL LAB CHEMISTRY METHOD 12/18/2024 2:10 PM EDT [facility] VLDL Cholesterol Ollie 18.4 mg/dL LAB CHEMISTRY METHOD 12/18/2024 2:10 PM EDT [facility] Non HDL Chol. (LDL+VLDL) 95 <145 mg/dL LAB CHEMISTRY METHOD 12/18/2024 2:10 PM EDT [facility] Chol/HDL Ratio 2.2 0.0 - 4.4 LAB CHEMISTRY METHOD 12/18/2024 2:10 PM EDT [facility] Blood Venous blood specimen / Unknown Venipuncture / Unknown 12/18/2024 9:19 AM EDT 12/18/2024 9:19 AM EDT Dominik HOFFMAN LAB BLOOD ORDERABLES Fi nal Result Performing Organization Address City/[facility]/ZIP Co de Phone Number [facility] [address] [place] [address], * Methylmalonic acid, serum (12/18/2024 9:19 AM EDT) Methylmalonic Acid 0.15 <0.40 umol/L 12/24/2024 4:09 AM EDT [facility] Comment: If applicable, any drug confirmation testing reported here was developed and the performance characteristics determined by [facility]. This confirmation testing has not been cleared or approved by the FDA. The laboratory is regulated under CLIA as qualified to perform high-complexity testing. This test is used for patient testing purposes. It should not be regarded as investigational or for research. Test performed at [facility], [address], [place] [address] Maribel Avelar MD, PhD - Inventory Clerk Blood Venous blood specimen / Unknown Venipuncture / Unknown 12/18/2024 9:19 AM EDT 12/18/2024 9:19 AM EDT Dominik HOFFMAN LAB BLOOD ORDERABLES Fi nal Result [facility] [address] [place] [address] * Vitamin D 1,25 dihydroxy (12/18/2024 9:19 AM EDT) Vitamin D, 1, 25-Dihydroxy 58 20 - 79 pg/mL 12/23/2024 6:06 PM EDT [facility] Comment: Vitamin D 1, 25 dihydroxy levels should be primarily used to assess Vitamin D status in patients with renal disease and hypercalcemia. Vitamin D 1,25-dihydroxy levels are generally less than 5 pg/mL in end stage renal disease patients. The preferred initial test for assessing Vitamin D status in the general population is Vitamin D 25-hydroxy (VITD). Test performed at [facility], [address] [place] [address] Maribel Avelar MD, PhD - Inventory Clerk Blood Venous blood specimen / Unknown Venipuncture / Unknown 12/18/2024 9:19 AM EDT 12/18/2024 9:19 AM EDT Dominik HOFFMAN LAB BLOOD ORDERABLES Fi nal Result Performing Organization Address [facility] Co de Phone Number [facility] [address] [place] [address] * Vitamin B1 (12/18/2024 9:19 AM EDT) [facility] Vitamin B1 Whole Blood 53 38 - 122 ug/L 12/24/2024 7:[address] [facility] Comment: This test was developed and the performance characteristics determined by [facility]. It has not been cleared or approved by the FDA. The laboratory is regulated under CLIA as qualified to perform high-complexity testing. This test is used for patient testing purposes. It should not be regarded as investigational or for research. Test performed at [facility], [address] [facility], [place] [address] Maribel Avelar MD, PhD - Inventory Clerk Blood Venous blood specimen / Unknown Venipuncture / Unknown 12/18/2024 9:19 AM EDT 12/18/2024 9:19 AM EDT Dominik HOFFMAN LAB BLOOD ORDERABLES Fi nal Result Performing Organization Address [facility] Co de Phone Number [facility] [address] [place] [address] * (ABNORMAL) Homocysteine, total (12/18/2024 9:19 AM EDT) Homocysteine 10.9(H) 3.2 - 10.7 mcmol/L LAB CHEMISTRY METHOD 12/18/2024 2:05 PM [facility] Blood Venous blood specimen / Unknown Venipuncture / Unknown 12/18/2024 9:19 AM EDT 12/18/2024 9:19 AM EDT Dominik HOFFMAN LAB BLOOD ORDERABLES Fi nal Result [facility] [address] [place] [address], * Comprehensive metabolic panel (12/18/2024 9:19 AM EDT) [facility] Sodium 143 133 - 145 mmol/L LAB CHEMISTRY METHOD 12/18/2024 1:54 PM [facility] Potassium 3.7 3.5 - 5.5 mmol/L LAB CHEMISTRY METHOD 12/18/2024 1:54 PM [facility] Chloride 110 96 - 110 mmol/L LAB CHEMISTRY METHOD 12/18/2024 1:54 PM [facility] CO2 24 21 - 32 mmol/L LAB CHEMISTRY METHOD 12/18/2024 1:54 PM [facility] Anion Gap 9 3 - 11 LAB CHEMISTRY METHOD 12/18/2024 1:54 PM [facility] Glucose 83 70 - 100 mg/dL LAB CHEMISTRY METHOD 12/18/2024 1:54 PM [facility] BUN 24 5 - 25 mg/dL LAB CHEMISTRY METHOD 12/18/2024 1:54 PM [facility] Creatinine 0.63 0.50 - 1.10 mg/dL LAB CHEMISTRY METHOD 12/18/2024 1:54 PM [facility] eGFR 89 >=60 mL/min/1. 73m2 LAB CHEMISTRY METHOD 12/18/2024 1:54 PM EDT [facility] Comment:Calculation based on the Chronic Kidney Disease Epidemiology Collaboration (CKD-EPI) equation refit without adjustment for race. BUN/Creatinine Ratio 38.1 LAB CHEMISTRY METHOD 12/18/2024 1:54 PM EDT [facility] Calcium 9.6 8.5 - 10.5 mg/dL LAB CHEMISTRY METHOD 12/18/2024 1:54 PM [facility] AST (SGOT) 26 10 - 42 unit/L LAB CHEMISTRY METHOD 12/18/2024 1:54 PM [facility] ALT (SGPT) 41 10 - 60 unit/L LAB CHEMISTRY METHOD 12/18/2024 1:54 PM [facility] Alkaline Phosphatase 106 42 - 121 unit/L LAB CHEMISTRY METHOD 12/18/2024 1:54 PM [facility] Total Protein 6.8 6.0 - 8.0 g/dL LAB CHEMISTRY METHOD 12/18/2024 1:54 PM [facility] Albumin 3.9 3.2 - 5.0 g/dL LAB CHEMISTRY METHOD 12/18/2024 1:54 PM [facility] Total Bilirubin 0.8 0.0 - 1.4 mg/dL LAB CHEMISTRY METHOD 12/18/2024 1:54 PM T [facility] Blood Venous blood specimen / Unknown Venipuncture / Unknown 12/18/2024 9:19 AM EDT 12/18/2024 9:19 AM EDT us Dominik HOFFMAN LAB BLOOD ORDERABLES Fi nal Result [facility] [address] [place] [address], * XR Chest 2 Views (12/17/2024 11:27 AM EDT) Anatomical Region Laterality Modality Body Radiographic Aviva ging 12/17/2024 11:3 8 AM EDT Narrative 12/17/2024 11:39 AM EDT Chest, 2 views. History persistent cough. No prior studies are available for comparison. Lungs are hyperinflated. There is no pneumothorax, pleural effusions or focal consolidations. There is thin linear density in the lingula, probably scarring Cardiomediastinal silhouette is unremarkable. There is arm mild dextroscoliosis. CONCLUSIONS: Hyperinflation. Dextroscoliosis. No arm acute radiographic abnormalities in the chest. -------- FINAL REPORT -------- Dictated By: Monica Skinner Dictated Date: 12/17/2024 11:38 ET Assigned Physician: Monica Skinner Reviewed and Electronically Signed By: Monica Skinner Signed Date: 12/17/2024 11:39 ET Workstation ID: [id number] Transcribed By: Self Edit Transcribed Date: 12/17/2024 11:38 ET Procedure Note Monica Skinner MD - 12/17/2024 Chest, 2 views. History persistent cough. No prior studies are available for comparison. Lungs are hyperinflated. There is no pneumothorax, pleural effusions orfocal consolidations. There is thin linear density in the lingula,probably scarring Cardiomediastinal silhouette is unremarkable. There isarm mild dextroscoliosis. CONCLUSIONS: Hyperinflation. Dextroscoliosis. No arm acute radiographicabnormalities in the chest. -------- FINAL REPORT -------- Dictated By: Monica Skinner Dictated Date: 12/17/2024 11:38 ET Assigned Physician: Monica Skinner Reviewed and Electronically Signed By: Monica Skinner Signed Date: 12/17/2024 11:39 ET Workstation ID: [id number] Transcribed By: Self Edit Transcribed Date: 12/17/2024 11:38 ET Dominik HOFFMAN IMG XR PROCEDURES Final Result * Depression Screening (10/03/2023) Depression Screening abstracted us Historical Provider HEALTH MAINTENANCE Final Result * DXA BONE DENSITY STUDY 1+ SITS AXIAL SKEL (04/28/2022 11:11 AM EDT) Anatomical Region Laterality Modality Bone Densitometr y 10/25/2021 1:34 PM EDT Narrative 04/28/2022 12:55 PM EDT BONE DENSITY Lumbar Spine T-score is -1.6 (SD relative to 20-29 y/o adult) Z-score is +1.1 (SD relative to age matched peers) This is consistent with osteopenia by criteria defined by the WHO. Left Hip T-score is -2.8 Z-score is -0.7 This is consistent with osteoporosis by criteria defined by the WHO. Comparison exam(s): no statistically significant change in the bone density of the hip when compared to most recent bone density examination Confidence level is +/-95%. Impression: Based on the World Health Organization criteria, Saskia Quach should be classified as having osteoporosis. The [facility] Department of Internal Medicine recommends using National Osteoporosis Foundation (NOF) guidelines in treatment decisions related to osteoporosis. NOF guidelines suggest considering treatment for postmenopausal women and men aged 50 or older presenting with the following: History of hip or vertebral fracture. T-score less than or equal to -2.5 (DXA) at the femoral neck, total hip, or spine, after appropriate evaluation to exclude secondary causes. Low bone mass (T-score between -1.0 and -2.5 at the femoral neck or spine) AND a 10-year probability of a hip fracture greater than or equal to 3% OR a 10-year probability of a major osteoporosis-related fracture greater than or equal to 20% based on the [place]-adapted WHO algorithm Please note that all treatment decisions require clinical judgment and consideration of individual patient factors, including patient preferences, co-morbidities, previous drug use, risk factors not captured in the FRAX model (e.g., frailty, falls, vitamin D deficiency, increased bone turnover, interval significant decline in bone density) and possible under- or over-estimation of fracture risk by FRAX. Procedure Note Monica Skinner MD - 06/28/2022 BONE DENSITY Lumbar Spine T-score is -1.6 (SD relative to 20-29 y/o adult) Z-score is +1.1 (SD relative to age matched peers) This is consistent with osteopenia by criteria defined by the WHO. Left Hip T-score is -2.8 Z-score is -0.7 This is consistent with osteoporosis by criteria defined by the WHO. Comparison exam(s): no statistically significant change in the bonedensity of the hip when compared to most recent bone density examination Confidence level is +/-95%. Impression: Based on the World Health Organization criteria, Saskia Quach should beclassified as having osteoporosis. The [facility] Department of Internal Medicine recommendsusing National Osteoporosis Foundation (NOF) guidelines in treatmentdecisions related to osteoporosis. NOF guidelines suggest consideringtreatment for postmenopausal women and men aged 50 or older presentingwith the following: History of hip or vertebral fracture. T-score less than or equal to -2.5 (DXA) at the femoral neck, total hip,or spine, after appropriate evaluation to exclude secondary causes. Low bone mass (T-score between -1.0 and -2.5 at the femoral neck or spine)AND a 10-year probability of a hip fracture greater than or equal to 3% ORa 10-year probability of a major osteoporosis-related fracture greaterthan or equal to 20% based on the [place]-adapted WHO algorithm Please note that all treatment decisions require clinical judgment andconsideration of individual patient factors, including patientpreferences, co-morbidities, previous drug use, risk factors not capturedin the FRAX model (e.g., frailty, falls, vitamin D deficiency, increasedbone turnover, interval significant decline in bone density) and possibleunder- or over-estimation of fracture risk by FRAX. Landen Alonso MD [facility] DXA PROCEDURES Final Result * Colonoscopy (12/04/2014) Colonoscopy no interpretation , abstracted Anatomical Region Laterality Modality Other Historical Provider HEALTH MAINTENANCE Final Result from Last 3 Months or Most Recently Relevant to Health Maintenance Insurance MEDICARE [facility] Care Teams Computer Game Tester Relationship Specialty Start Date End Date Landen Alonso MD [address] [facility] [place] [address] PCP - General Internal Medicine 05/22/24
--- OUTSIDE RECORDS SUMMARY | 2025-03-14 12:14 | XMS_ITS | Encounter Summary ---
Author Organization [facility] [place] [address] Care Team Providers Care Tank House Supervisor Name Role Phone Landen Alonso MD Primary Care Provider Reason for Visit * Reason Onset Date Comments Shoulder Pain 03/14/2025 Neck Pain 03/14/2025 Encounter Details Date Type Department Care Team (Late st Contact Info) Description 03/14/2025 Telephone Internal Medicine - [facility] [address] [place] [address] Landen Alonso MD [address] [place] [phone] Social History Tobacco Use Types Packs/Day Years Used Date Smoking Tobacco: Former Cigarettes Q uit: 07/10/1982 Smokeless Tobacco: Never Alcohol Use Standard Drinks/Week Comments Yes 0 (1 standard drink = 0.6 oz pur e alcohol) Comments No Sex and Gender Information Value Date Recorded Sex Assigned at Not on file Legal Sex Female 2:50 PM EST Gender Identity Not on file Sexual Orientation Not on file documented as of this encounter Progress Notes * Aria Hendrickson RN - 03/14/2025 9:38 AM EDT spoke to 84 yr old pt-reports of severe left shoulder and neck pain x few days and is on her way with family to [facility] ER for eval. Advised to callback office for hosp. f/up. * Donna Alfred - 03/14/2025 9:11 AM EDT Symptoms patient is presenting: pt c/o neck and lt shoulder For ALL patients calling to schedule any appointment (routine, sick visit, follow up, consult, etc.) in the outpatient setting please ask the following questions: Do you have fever of higher than 101, sore throat with difficulty swallowing or severe shortness ofbreath? NO If YES to any of these above symptoms, send a message to triage and do not book. Red dot. If no, an audio or video visit should be booked. Have you had close contact with someone with Coronavirus in the last 14 days? NO Have you traveled abroad? NO Have you traveled recently to another state outside of [place], [place], [place], [place], [place], [place], [place]? NO o If yes, did you quarantine for 14 days or have a negative covid test? NO If yes to any of the above, patient is not to be scheduled in office until after 14 day quarantine or negative covid test. If pain or injury related was it due to an accident at work or from a motor vehicle accident? NO If yes, gather 3rd libertarian insurance information Date of accident/Injury: n/a How long has patient had these symptoms?: this morning PCP: Dr Alonso [place] / [place] / Product Type: [place]ARE [id number] documented in this encounter Plan of Treatment Upcoming Encounters Date Type Department Care Team (Late st Contact Info) Description 06/18/2025 11:00 AM EST Office Visit Internal Medicine - [facility] [address] [place], [place] [phone] Dominik Rothman PA [address] [place], [place] 08/21/2025 11:00 AM EST Office Visit Internal Medicine - [facility] [address] [place], [place] [phone] Landen Alonso MD [address] [facility] [place] [address] documented as of this encounter Visit Diagnoses Not on filedocumented in this encounter Care Teams Tank House Supervisor Relationship Specialty Start Date End Date Landen Alonso MD [address] [place] [address] PCP - General Internal Medicine 05/22/24 documented as of this encounter
--- OUTSIDE RECORDS SUMMARY | 2025-03-14 12:14 | XMS_ITS | Encounter Summary ---
Author Organization [facility] [place] [address] Care Team Providers Care Manager Intensive Care Name Role Phone Landen Alonso MD Primary Care Provider Encounter Details Date Type Department Care Team (Latest Contact Info) Description 06/12/2024 Lab Requisition [facility] - Main Lab [address] [facility] [place] [address] Cheryl Gamble MD [address] [place] [address] Other abnormal findings on microbiological examination of urine Social History Tobacco Use Types Packs/Day Years [...] on file documented as of this encounter Plan of Treatment Upcoming Encounters Date Type Department Care Team (Late st Contact Info) Description 06/18/2025 11:00 AM EST Office Visit Internal Medicine - [facility] [address] [place] [address] Dominik Rothman PA [address] [place] [address] 08/21/2025 11:00 AM EST Office Visit Internal Medicine - [facility] [address] [place], [place] [phone] Landen Alonso MD [address] [place] [address] documented as of this encounter Procedures Procedure Name Priority Date/Time Associated Diagnosis Comments URINALYSIS WITH REFLEX MICROSCOPIC AND CULTURE Routine 06/12/2024 6:00 PM EST Other abnormal findings on microbiological examination of urine COTA - NA FLOURIDE Routine 06/12/2024 6: 00 PM EST Other abnormal findings on microbiological examination of urine URINALYSIS WITH REFLEX MICROSCOPIC AND CULTURE Routine 06/12/2024 6:00 PM EST Other abnormal findings on microbiological examination of urine CULTURE URINE Routine 06/12/2024 6:00 PM EST Other abnormal findings on microbiological examination of urine documented in this encounter Results * (ABNORMAL) Culture urine (06/12/2024 6:00 PM EST) Culture, Urine 10,000-49,000 CFU/mL Escherichia coli(A) LORENA 06/14/2024 10:00 AM EST [facility] Urine Urine specimen obtained by clean catch procedure / Unknown 06/12/2024 6:00 PM EST 06/12/2024 8:40 PM EST Narrative Organism Antibiotic Method Susceptibility Escherichia coli Amoxicillin/Clavulanate LORENA 4 ug/ml: Susceptible Escherichia coli Ampicillin/Sulbactam LORENA 4 ug/ml: Susceptible Escherichia coli Piperacillin/Tazobactam LORENA <=4 ug/ml: Susceptible Escherichia coli Cefazolin (Urine) LORENA <=1 ug/ml: Susceptible Escherichia coli Cefoxitin LORENA <=4 ug/ml: Susceptible Escherichia coli Ceftazidime LORENA <=0.5 ug/ml: Susceptible Escherichia coli Ceftriaxone LORENA <=0.25 ug/ml: Susceptible Escherichia coli Cefepime LORENA <=0.12 ug/ml: Susceptible Escherichia coli Meropenem LORENA <=0.25 ug/ml: Susceptible Escherichia coli Amikacin LORENA 2 ug/ml: Susceptible Escherichia coli Gentamicin LORENA <=1 ug/ml: Susceptible Escherichia coli Ciprofloxacin LORENA <=0.06 ug/ml: Susceptible Escherichia coli Levofloxacin LORENA <=0.12 ug/ml: Susceptible Escherichia coli Nitrofurantoin LORENA <=16 ug/ml: Susceptible Escherichia coli Trimethoprim/Sulfamethoxazole LORENA <=20 ug/ml: Susceptible Cheryl Gamble MD LAB MICROBIOLOGY - GENERAL ORDE RABLES Final Result Performing Organization Address [facility] Co de Phone Number [facility] [address] [place] [address], [place] [phone] * Cota tube (06/12/2024 6:00 PM EST) [facility] Extra Tube Hold for add-ons. 06/12/2024 10:01 PM EST [facility] Comment:Auto resulted. Blood Venous blood specimen / Unknown 06/12/2024 6:00 PM EST 06/12/2024 8:13 PM EST Cheryl Gamble MD LAB BLOOD ORDERABLES Final Resu lt Performing Organization Address [facility] de Phone Number [facility] [address] [place] [address], [place] [phone] * (ABNORMAL) Urinalysis with reflex microscopic and culture (06/12/2024 6:00 PM EST) [facility] Specific [place] Urine 1.011 1.003 - 1.030 LAB URINALYSIS - AUTOMATED METHOD 06/12/2024 8:40 PM [facility] pH, Urine 6.5 5.0 - 8.0 pH LAB URINALYSIS - AUTOMATED METHOD 06/12/2024 8:40 PM [facility] Leukocytes, Urine Trace(A) Negative LAB URINALYSIS - AUTOMATED METHOD 06/12/2024 8:40 PM [facility] Nitrite, Urine Negative Negative LAB URINALYSIS - AUTOMATED METHOD 06/12/2024 8:40 PM [facility] Protein, Urine Negative <=Trace mg/dL LAB URINALYSIS - AUTOMATED METHOD 06/12/2024 8:40 PM [facility] Glucose, Urine Negative Negative mg/dL LAB URINALYSIS - AUTOMATED METHOD 06/12/2024 8:40 PM [facility] Ketones, Urine Negative Negative mg/dL LAB URINALYSIS - AUTOMATED METHOD 06/12/2024 8:40 PM [facility] Urobilinogen, Urine 1.0 0.2 - 1.0 mg/dL LAB URINALYSIS - AUTOMATED METHOD 06/12/2024 8:40 PM [facility] Bilirubin, Urine Negative Negative LAB URINALYSIS - AUTOMATED METHOD 06/12/2024 8:40 PM [facility] Blood, Urine Negative Negative LAB URINALYSIS - AUTOMATED METHOD 06/12/2024 8:40 PM [facility] RBC, Urine 1.2 0 - 4 /HPF LAB URINALYSIS - AUTOMATED METHOD 06/12/2024 8:40 PM [facility] WBC, Urine 0.8 0 - 4 /HPF LAB URINALYSIS - AUTOMATED METHOD 06/12/2024 8:40 PM [facility] Squamous Epithelial, Urine 7 0 - 60 /LPF LAB URINALYSIS - AUTOMATED METHOD 06/12/2024 8:40 PM [facility] Bacteria, Urine Negative Negative /HPF LAB URINALYSIS - AUTOMATED METHOD 06/12/2024 8:40 PM [facility] Hyaline Casts, Urine 0.0 0 - 3 /LPF LAB URINALYSIS - AUTOMATED METHOD 06/12/2024 8:40 PM [facility] Urine Urine specimen obtained by clean catch procedure / Unknown 06/12/2024 6:00 PM EST 06/12/2024 8:13 PM EST us Cheryl Gamble MD LAB URINE ORDERABLES Final Resu lt [facility]) [facility] [address] [place] [address], documented in this encounter Visit Diagnoses Diagnosis Other abnormal findings on microbiological examination of urine documented in this encounter Additional Health Concerns Infection Onset Date Last Indicated Resolved Time Gastrointestinal Rule-Out 06/28/2024 06/28/2024 7:06 PM EST documented as of this encounter Care Teams Manager Intensive Care Relationship Specialty Start Date End Date Landen Alonso MD [address] [place] [phone] PCP - General Internal Medicine 05/22/24 documented as of this encounter
--- OUTSIDE RECORDS SUMMARY | 2025-03-14 12:14 | XMS_ITS | Encounter Summary ---
Author Organization [facility] [place] [address] Care Team Providers Care Nut Orchardist Name Role Phone Landen Alonso MD Primary Care Provider [phone] Encounter Details Date Type Department Care Team (Late Contact Info) Description 06/18/2024 Lab Requisition [facility] - Main Lab [address] [facility] [place] [address] Cheryl Gamble MD [address] [place] [phone] Encounter for other general examination Social History Tobacco Use Types Packs/Day Years [...] Encounters Date Type Department Care Team (Late Contact Info) Description 06/18/2025 11:00 AM EST Office Visit Internal Medicine - [facility] [address] [place] [address] Dominik Rothman PA [address] [place] [address] 08/21/2025 11:00 AM EST Office Visit Internal Medicine - [facility] [address] [place], [place] [phone] Landen Alonso MD [address] [place], [place] documented as of this encounter Procedures Procedure Name Priority Date/Time Associated Diagnosis Comments CBC WITH AUTO DIFFERENTIAL Routine 06/18/2024 5:05 AM EST Encounter for other general examination CBC AND DIFFERENTIAL Routine 06/18/2024 5:05 AM EST Encounter for other general examination MAGNESIUM Routine 06/18/2024 5:05 AM EST Encounter for other general examination COMPREHENSIVE METABOLIC PANEL Routine 06/18/2024 5:05 AM EST Encounter for other general examination documented in this encounter Results * (ABNORMAL) CBC auto differential (06/18/2024 5:05 AM EST) WBC 6.2 4.8 - 10.8 K/mcL LAB HEMETOLOGY METHOD 06/18/2024 10:24 AM [facility] RBC 3.00(L) 3.80 - 4.80 M/mcL LAB HEMETOLOGY METHOD 06/18/2024 10:24 AM [facility] Hemoglobin 10.1(L) 11.5 - 16.0 g/dL LAB HEMETOLOGY METHOD 06/18/2024 10:24 AM [facility] Hematocrit 30.9(L) 35.0 - 47.0 % LAB HEMETOLOGY METHOD 06/18/2024 10:24 AM [facility] MCV 103.7(H) 79.0 - 98.0 FL LAB HEMETOLOGY METHOD 06/18/2024 10:24 AM [facility] MCH 33.9(H) 27.0 - 32.0 pcg LAB HEMETOLOGY METHOD 06/18/2024 10:24 AM [facility] MCHC 32.7 32.0 - 37.0 g/dL LAB HEMETOLOGY METHOD 06/18/2024 10:24 AM [facility] RDW 13.2 11.0 - 15.0 % LAB HEMETOLOGY METHOD 06/18/2024 10:24 AM [facility] Platelets 462(H) 130 - 400 K/mcL LAB HEMETOLOGY METHOD 06/18/2024 10:24 AM [facility] MPV 9.7 7.0 - 11.0 FL LAB HEMETOLOGY METHOD 06/18/2024 10:24 AM [facility] NRBC 0.0 <1.0 % LAB HEMETOLOGY METHOD 06/18/2024 10:24 AM [facility] NRBC Absolute 0.00 <0.10 K/mcL LAB HEMETOLOGY METHOD 06/18/2024 10:24 AM [facility] Neutrophils Relative 47.8 % LAB HEMETOLOGY METHOD 06/18/2024 10:24 AM [facility] Lymphocytes Relative 34.7 % LAB HEMETOLOGY METHOD 06/18/2024 10:24 AM [facility] Monocytes Relative 11.7 % LAB HEMETOLOGY METHOD 06/18/2024 10:24 AM [facility] Eosinophils Relative 4.2 % LAB HEMETOLOGY METHOD 06/18/2024 10:24 AM [facility] Basophils Relative 1.3 % LAB HEMETOLOGY METHOD 06/18/2024 10:24 AM [facility] Immature Granulocytes Relative 0.3 % LAB HEMETOLOGY METHOD 06/18/2024 10:24 AM [facility] Neutrophils Absolute 2.94 1.50 - 7.00 K/mcL LAB HEMETOLOGY METHOD 06/18/2024 10:24 AM EST [facility] Lymphocytes Absolute 2.14 1.00 - 5.00 K/mcL LAB HEMETOLOGY METHOD 06/18/2024 10:24 AM EST [facility] Monocytes Absolute 0.72 0.20 - 1.00 K/mcL LAB HEMETOLOGY METHOD 06/18/2024 10:24 AM EST [facility] Eosinophils Absolute 0.26 0.00 - 0.50 K/mcL LAB HEMETOLOGY METHOD 06/18/2024 10:24 AM EST [facility] Basophils Absolute 0.08 0.00 - 0.20 K/mcL LAB HEMETOLOGY METHOD 06/18/2024 10:24 AM EST [facility] Immature Granulocytes Absolute 0.02 0.00 - 0.03 K/mcL LAB HEMETOLOGY METHOD 06/18/2024 10:24 AM EST [facility] Blood Venous blood specimen / Unknown 06/18/2024 5:05 AM EST 06/18/2024 9:46 AM EST us Cheryl Gamble MD LAB BLOOD ORDERABLES Final Resu lt [facility] [address] [place] [address], [place] [phone] * Magnesium (06/18/2024 5:05 AM EST) Magnesium 2.3 1.9 - 2.6 mg/dL LAB CHEMISTRY METHOD 06/18/2024 10:41 AM EST [facility] Blood Venous blood specimen / Unknown 06/18/2024 5:05 AM EST 06/18/2024 9:46 AM EST us Cheryl Gamble MD LAB BLOOD ORDERABLES Final Resu lt [facility] [address] [place] [address], [place] [phone] * (ABNORMAL) Comprehensive metabolic panel (06/18/2024 5:05 AM EST) Sodium 140 133 - 145 mmol/L LAB CHEMISTRY METHOD 06/18/2024 10:42 AM [facility] Potassium 3.8 3.5 - 5.5 mmol/L LAB CHEMISTRY METHOD 06/18/2024 10:42 AM [facility] Chloride 104 96 - 110 mmol/L LAB CHEMISTRY METHOD 06/18/2024 10:42 AM [facility] CO2 30 21 - 32 mmol/L LAB CHEMISTRY METHOD 06/18/2024 10:42 AM [facility] Anion Gap 6 3 - 11 LAB CHEMISTRY METHOD 06/18/2024 10:42 AM [facility] Glucose 72 70 - 100 mg/dL LAB CHEMISTRY METHOD 06/18/2024 10:42 AM [facility] BUN 14 5 - 25 mg/dL LAB CHEMISTRY METHOD 06/18/2024 10:42 AM [facility] Creatinine 0.54 0.50 - 1.10 mg/dL LAB CHEMISTRY METHOD 06/18/2024 10:42 AM [facility] eGFR 93 >=60 mL/min/1. 73m2 LAB CHEMISTRY METHOD 06/18/2024 10:42 AM [facility] Comment:Calculation based on the Chronic Kidney Disease Epidemiology Collaboration (CKD-EPI) equation refit without adjustment for race. BUN/Creatinine Ratio 25.9 LAB CHEMISTRY METHOD 06/18/2024 10:42 AM [facility] Calcium 9.5 8.5 - 10.5 mg/dL LAB CHEMISTRY METHOD 06/18/2024 10:42 AM [facility] AST (SGOT) 36 10 - 42 unit/L LAB CHEMISTRY METHOD 06/18/2024 10:42 AM [facility] ALT (SGPT) 56 10 - 60 unit/L LAB CHEMISTRY METHOD 06/18/2024 10:42 AM EST [facility] Alkaline Phosphatase 257(H) 42 - 121 unit/L LAB CHEMISTRY METHOD 06/18/2024 10:42 AM [facility] Total Protein 5.8(L) 6.0 - 8.0 g/dL LAB CHEMISTRY METHOD 06/18/2024 10:42 AM [facility] Albumin 3.1(L) 3.2 - 5.0 g/dL LAB CHEMISTRY METHOD 06/18/2024 10:42 AM [facility] Total Bilirubin 0.6 0.0 - 1.4 mg/dL LAB CHEMISTRY METHOD 06/18/2024 10:42 AM [facility] Blood Venous blood specimen / Unknown 06/18/2024 5:05 AM EST 06/18/2024 9:46 AM EST us Cheryl Gamble MD LAB BLOOD ORDERABLES Final Resu lt [facility] [address] [place] [address], documented in this encounter Visit Diagnoses Diagnosis Encounter for other general examination documented in this encounter Additional Health Concerns Infection Onset Date Last Indicated Resolved Time Gastrointestinal Rule-Out 06/28/2024 06/28/2024 7:06 PM EST documented as of this encounter Care Teams Nut Orchardist Relationship Specialty Start Date End Date Landen Alonso MD [address] [facility] [place] [address] PCP - General Internal Medicine 05/22/24 documented as of this encounter
--- OUTSIDE RECORDS SUMMARY | 2025-03-14 12:14 | XMS_ITS | Encounter Summary ---
Author Organization [facility] [place] [address] Care Team Providers Care Md Allergy Immunology Name Role Phone Landen Alonso MD Primary Care Provider Encounter Details Date Type Department Care Team (Late Contact Info) Description 06/11/[address] [facility] - Main Lab [address] [facility] [employer] [place] [address] Cheryl Gamble MD [address] [place] [phone] Encounter for other general examination Social History [...] Office Visit Internal Medicine - [facility] [address] [place] [address] Dominik Rothman PA [address] [place] [address] 08/21/2025 11:00 AM EST Office Visit Internal Medicine - [facility] [address] [facility] [place] [phone] Landen Alonso MD [address] [place], [place] documented as of this encounter Procedures Procedure Name Priority Date/Time Associated Diagnosis Comments CBC WITH AUTO DIFFERENTIAL Routine 06/11/2024 5:23 AM EST Encounter for other general examination CBC AND DIFFERENTIAL Routine 06/11/2024 5:23 AM EST Encounter for other general examination MAGNESIUM Routine 06/11/2024 5:23 AM EST Encounter for other general examination COMPREHENSIVE METABOLIC PANEL Routine 06/11/2024 5:23 AM EST Encounter for other general examination documented in this encounter Results * (ABNORMAL) CBC auto differential (06/11/2024 5:23 AM EST) WBC 6.6 4.8 - 10.8 K/mcL LAB HEMETOLOGY METHOD 06/11/2024 11:09 AM [facility] RBC 2.90(L) 3.80 - 4.80 M/mcL LAB HEMETOLOGY METHOD 06/11/2024 11:09 AM [facility] Hemoglobin 9.7(L) 11.5 - 16.0 g/dL LAB HEMETOLOGY METHOD 06/11/2024 11:09 AM [facility] Hematocrit 28.8(L) 35.0 - 47.0 % LAB HEMETOLOGY METHOD 06/11/2024 11:09 AM [facility] MCV 101.1(H) 79.0 - 98.0 FL LAB HEMETOLOGY METHOD 06/11/2024 11:09 AM [facility] MCH 34.0(H) 27.0 - 32.0 pcg LAB HEMETOLOGY METHOD 06/11/2024 11:09 AM [facility] MCHC 33.7 32.0 - 37.0 g/dL LAB HEMETOLOGY METHOD 06/11/2024 11:09 AM [facility] RDW 12.5 11.0 - 15.0 % LAB HEMETOLOGY METHOD 06/11/2024 11:09 AM [facility] Platelets 279 130 - 400 K/mcL LAB HEMETOLOGY METHOD 06/11/2024 11:09 AM [facility] MPV 10.2 7.0 - 11.0 FL LAB HEMETOLOGY METHOD 06/11/2024 11:09 AM [facility] NRBC 0.0 <1.0 % LAB HEMETOLOGY METHOD 06/11/2024 11:09 AM [facility] NRBC Absolute 0.00 <0.10 K/mcL LAB HEMETOLOGY METHOD 06/11/2024 11:09 AM [facility] Neutrophils Relative 52.0 % LAB HEMETOLOGY METHOD 06/11/2024 11:09 AM [facility] Lymphocytes Relative 31.6 % LAB HEMETOLOGY METHOD 06/11/2024 11:09 AM [facility] Monocytes Relative 10.5 % LAB HEMETOLOGY METHOD 06/11/2024 11:09 AM [facility] Eosinophils Relative 4.4 % LAB HEMETOLOGY METHOD 06/11/2024 11:09 AM [facility] Basophils Relative 1.2 % LAB HEMETOLOGY METHOD 06/11/2024 11:09 AM [facility] Immature Granulocytes Relative 0.3 % LAB HEMETOLOGY METHOD 06/11/2024 11:09 AM [facility] Neutrophils Absolute 3.42 1.50 - 7.00 K/mcL LAB HEMETOLOGY METHOD 06/11/2024 11:09 AM [facility] Lymphocytes Absolute 2.08 1.00 - 5.00 K/mcL LAB HEMETOLOGY METHOD 06/11/2024 11:09 AM EST [facility] Monocytes Absolute 0.69 0.20 - 1.00 K/mcL LAB HEMETOLOGY METHOD 06/11/2024 11:09 AM EST [facility] Eosinophils Absolute 0.29 0.00 - 0.50 K/mcL LAB HEMETOLOGY METHOD 06/11/2024 11:09 AM EST [facility] Basophils Absolute 0.08 0.00 - 0.20 K/mcL LAB HEMETOLOGY METHOD 06/11/2024 11:09 AM EST [facility] Immature Granulocytes Absolute 0.02 0.00 - 0.03 K/mcL LAB HEMETOLOGY METHOD 06/11/2024 11:09 AM [facility] Blood Venous blood specimen / Unknown Venipuncture / Unknown 06/11/2024 5:23 AM EST 06/11/2024 9:34 AM EST us Cheryl Gamble MD LAB BLOOD ORDERABLES Final Resu lt Performing Organization Address City/[facility] [address]/ZIP Co de Phone Number [facility] [address] [place] [address], * Magnesium (06/11/2024 5:23 AM EST) Magnesium 2.2 1.9 - 2.6 mg/dL LAB CHEMISTRY METHOD 06/11/2024 11:37 AM EST [facility] Blood Venous blood specimen / Unknown Venipuncture / Unknown 06/11/2024 5:23 AM EST 06/11/2024 9:34 AM EST us Cheryl Gamble MD LAB BLOOD ORDERABLES Final Resu lt [facility] [address] [place] [address], [place] [phone] * (ABNORMAL) Comprehensive metabolic panel (06/11/2024 5:23 AM EST) Sodium 141 133 - 145 mmol/L LAB CHEMISTRY METHOD 06/11/2024 11:42 AM [facility] Potassium 3.7 3.5 - 5.5 mmol/L LAB CHEMISTRY METHOD 06/11/2024 11:42 AM [facility] Chloride 105 96 - 110 mmol/L LAB CHEMISTRY METHOD 06/11/2024 11:42 AM [facility] CO2 28 21 - 32 mmol/L LAB CHEMISTRY METHOD 06/11/2024 11:42 AM [facility] Anion Gap 8 3 - 11 LAB CHEMISTRY METHOD 06/11/2024 11:42 AM [facility] Glucose 86 70 - 100 mg/dL LAB CHEMISTRY METHOD 06/11/2024 11:42 AM [facility] BUN 13 5 - 25 mg/dL LAB CHEMISTRY METHOD 06/11/2024 11:42 AM [facility] Creatinine 0.50 0.50 - 1.10 mg/dL LAB CHEMISTRY METHOD 06/11/2024 11:42 AM [facility] eGFR 94 >=60 mL/min/1. 73m2 LAB CHEMISTRY METHOD 06/11/2024 11:42 AM [facility] Comment:Calculation based on the Chronic Kidney Disease Epidemiology Collaboration (CKD-EPI) equation refit without adjustment for race. BUN/Creatinine Ratio 26.0 LAB CHEMISTRY METHOD 06/11/2024 11:42 AM [facility] Calcium 9.2 8.5 - 10.5 mg/dL LAB CHEMISTRY METHOD 06/11/2024 11:42 AM [facility] AST (SGOT) 57(H) 10 - 42 unit/L LAB CHEMISTRY METHOD 06/11/2024 11:42 AM EST [facility] ALT (SGPT) 56 10 - 60 unit/L LAB CHEMISTRY METHOD 06/11/2024 11:42 AM EST [facility] Alkaline Phosphatase 161(H) 42 - 121 unit/L LAB CHEMISTRY METHOD 06/11/2024 11:42 AM [facility] Total Protein 5.8(L) 6.0 - 8.0 g/dL LAB CHEMISTRY METHOD 06/11/2024 11:42 AM [facility] Albumin 3.1(L) 3.2 - 5.0 g/dL LAB CHEMISTRY METHOD 06/11/2024 11:42 AM [facility] Total Bilirubin 0.7 0.0 - 1.4 mg/dL LAB CHEMISTRY METHOD 06/11/2024 11:42 AM [facility] Blood Venous blood specimen / Unknown Venipuncture / Unknown 06/11/2024 5:23 AM EST 06/11/2024 9:34 AM EST us Cheryl Gamble MD LAB BLOOD ORDERABLES Final Resu lt [facility] [address] [place] [address], documented in this encounter Visit Diagnoses Diagnosis Encounter for other general examination documented in this encounter Additional Health Concerns Infection Onset Date Last Indicated Resolved Time Gastrointestinal Rule-Out 06/28/2024 06/28/2024 7:06 PM EST documented as of this encounter Care Teams Md Allergy Immunology Relationship Specialty Start Date End Date Landen Alonso MD [address] [place] [address] PCP - General Internal Medicine 05/22/24 documented as of this encounter
[2025-03-14] MEDS: Morphine Sulfate Immed Release 15 MG TABLET PO (12:18)
[2025-03-14] MEDS: iohexoL 350 MG/ML 100 ML INFUS..BTL IV ×2 (13:21→13:52)
[2025-03-14 14:19] VITALS: BP 165/84; PULSE 70; RESP 14; TEMP 36.3; O2SAT 96
[2025-03-14 14:38] LABS: Troponin-I High Sensitivity 4.7 ng/L (<3.5-17.0)
[2025-03-14 17:30] VITALS: BP 148/68; PULSE 66; RESP 14; TEMP 36.3; O2SAT 94
[2025-03-14 17:31] VITALS: BP 148/68; PULSE 66; RESP 14; TEMP 36.3; O2SAT 94
== END 2025-03-14 17:33 | disposition home or self-care (01) ==
PROVIDERS: Physician Assistant; Emergency Provider Emergency Medicine; PCP Internal Medicine
DX: M54.12 Radiculopathy, cervical region (principal); M43.6 Torticollis; R51.9 Headache, unspecified; I10 Essential (primary) hypertension; Z79.899 Other long term (current) drug therapy
CPT/HCPCS: 36415; 70450; 71045; 71275; 72125; 74177; 80053; 81003; 82803; 83735; 84484; 85025; 85379; 85652; 86140; 87502; 87635; 93005; 96361; 96374; 96375; 99285; J0131; J1885; J3360; Q9967

== ENCOUNTER → 2025-03-14 10:14 | Outpatient (BNV) | payer MEDICARE, SELFPAY | PROVIDERS: Emergency Provider Emergency Medicine; PCP Internal Medicine; Visit Provider Internal Medicine Cardiovascular Disease | DX: R94.31 Abnormal electrocardiogram [ECG] [EKG] (principal); R06.02 Shortness of breath | CPT/HCPCS: 93010 ==

== ENCOUNTER → 2025-03-14 10:14 | Outpatient (BNV) | payer MEDICARE, SELFPAY | PROVIDERS: Emergency Provider Emergency Medicine; Visit Provider Radiology Diagnostic Radiology | DX: K57.32 Diverticulitis of large intestine without perforation or abscess without bleeding (principal) | CPT/HCPCS: 70450; 71045; 72125; 74177 ==